=== PATIENT | male | born 1935 | race Caucasian/White ===

== ENCOUNTER 2016-05-25 21:41 | Inpatient (IN) | payer BC ==
--- NOTE | ~2016-05-25 | HP ---
History And Physical [id number] [place]. [address] NAME: GILBERTO DURAND : 31 STATUS : ADM IN [facility]#: [id number] AGE: 80 ADM/REG DATE : 05/26/16 MR#: [id number] REPORT SERV DATE: 05/26/16 DICTATED BY: BLAINE CHEN DATE: 05/26/16 REPORT STATUS : Draft TRANSCRIBED BY: MODL DATE: 05/26/16 DATE OF ADMISSION: 05/26/2016 CHIEF COMPLAINT: An 80-year-old male with chronic severe dysphagia, presenting with a vomiting episode and now respiratory failure and aspiration pneumonia. HISTORY OF PRESENTING ILLNESS: The patient's history was obtained through careful interview with the patient, , and son, coupled with review of [employer] [facility] [employer] medical records. The patient has chronic dysphagia and receives medicines and food only through his PEG tube and has generally been doing well, but over the last week or so, has had progressive weakness that is particularly worsened at night. He has nighttime agitation, nighttime shortness of breath. Sometimes, it seems that he suffers from orthopnea and possible paroxysmal nocturnal dyspnea. He mostly feels comfortable sitting up in a recliner. For last two nights, he has had shortness of breath issues, but then on the night of admission, he vomited and had a witnessed aspiration, gagging severely on as vomitus and became distressed with his breathing. He had fevers and chills earlier on the day of admission, but early on the day leading up to admission, he actually had home health care physical therapy working with him and was doing quite well. He has no pain complaints. No chest pain. No abdominal pain. No headache. No back pain. REVIEW OF SYSTEMS: Otherwise, a 14-point review of systems was obtained and was negative. PAST MEDICAL HISTORY: 1. Mild Alzheimer dementia. 2. Stroke. 3. Chronic dysphagia status post PEG tube placement. Under the care of Dr. Carr. 4. Recurrent aspiration pneumonia. 5. Coronary artery disease status post CABG, seen by Dr. Jimenez. 6. Atrial fibrillation, on Xarelto, seen by Dr. White. 7. Benign prostatic hypertrophy. 8. MRSA infection. 9. Cellulitis of the legs. 10.Depression. 11.Diabetes. 12.Hyperthyroidism as a young man with status post radiation and then developed hypothyroidism. 13.Vertigo. 14.Systolic congestive heart failure, ejection fraction of 40%. 15.Prostate cancer. History And Physical [address] [address] NAME: GILBERTO DURAND : 31 STATUS : ADM IN PAT#: [id number] AGE: 80 ADM/REG DATE : 05/26/16 MR#: [id number] REPORT SERV DATE: 05/26/16 DICTATED BY: BLAINE CHEN DATE: 05/26/16 REPORT STATUS : Draft TRANSCRIBED BY: JEMMA DATE: 05/26/16 16.Aortic stenosis with a valve area of 1.4 cm2. PAST SURGICAL HISTORY: 1. CABG in 2008. 2. PEG tube placement. 3. TURP. 4. Cholecystectomy. 5. Melanoma in 2010. 6. Left foot surgery. 7. Basal cell carcinoma of the foot removed. ALLERGIES: PENICILLIN, SHELLFISH, BENADRYL. CODE STATUS: The family initially signed a form tonight to be a do not intubate, no CPR, but they actually describe to me the need to possibly reconsider this? 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 His son is a GI physician in [place], [place] at [facility]. The patient needs assistance with all activities of daily living. The patient has assistance from his and certified personal trainer that comes by each day, has a hospital bed at home. FAMILY HISTORY: Father with heart disease. Mother of "old age." Son with melanoma. Strong family history of diabetes. CURRENT MEDICATIONS: Include albuterol inhaler, amiodarone 100 mg per PEG daily, eye drops, Coreg 6.25 mg per PEG twice a day, Antabuse, Aricept 15 mg through PEG, doxycycline 100 mg twice a day, Lasix 40 mg twice a day, Atrovent, levothyroxine 75 mcg daily, metformin 500 mg daily, multivitamin, potassium 20 mEq daily, Xarelto 20 mg at night, Exelon patch, Crestor 10 mg daily, Florastor 250 mg daily, Namenda twice a day, Effexor XR 150 mg daily at nighttime. PHYSICAL EXAMINATION: VITAL SIGNS: Temperature 97.4, pulse 99, blood pressure 149/54, respiratory rate 33, and O2 saturation 89% on 4 L nasal cannula. GENERAL: An ill-appearing male, poorly responsive, in distress from respiratory distress. HEENT: Pupils equal, round, and reactive to light. No conjunctival pallor. No scleral icterus. Nares are patent. Oropharynx is clear of obstruction. Moist mucous membranes. NECK: Trachea midline. No thyromegaly. LYMPH: No cervical lymphadenopathy. No supraclavicular lymphadenopathy. RESPIRATORY: The patient has crackles and rhonchi throughout examination, significant upper respiratory rhonchi are predominant. No wheezes at this time. No wet rales. A very labored respiratory effort heaving with his abdomen with each breath. CARDIOVASCULAR: Regular rate and rhythm. No murmurs, rubs, or gallops. No current extremity edema is appreciated at all. ABDOMEN: Completely soft, nontender, nondistended. Normal bowel sounds auscultated History And Physical [address] [address] NAME: GILBERTO DURAND : 31 STATUS : ADM IN [facility]#: [id number] AGE: 80 ADM/REG DATE : 05/26/16 MR#: [id number] REPORT SERV DATE: 05/26/16 DICTATED BY: BLAINE CHEN DATE: 05/26/16 REPORT STATUS : Draft TRANSCRIBED BY: JEMMA DATE: 05/26/16 throughout. No hepatosplenomegaly. DERMATOLOGICAL: Warm and dry. EXTREMITIES: No pallor. No cyanosis. PSYCHIATRIC: Completely unresponsive at this time, lethargic, difficult to arouse. LABORATORY DATA: White blood cell count 13.6, hemoglobin 12, hematocrit 39, platelets 342. Sodium 135, potassium 5.2, chloride 96, bicarbonate 32, BUN 28, creatinine 0.90, glucose 141, brain natriuretic peptide 175, troponin 0.04, albumin 2.8, INR 1.3. Liver enzymes within normal limits. ABG demonstrates pH 7.38, a PaCO2 of 53, a PaO2 of 71, and bicarbonate of 30. STUDIES: 1. CT scan of the abdomen shows bilateral lower lung infiltrates. 2. EKG by my own evaluation shows sinus rhythm, first-degree AV block, premature atrial complexes, inferior Q-waves. ASSESSMENT AND PLAN: 1. Hypercapnic and hypoxic respiratory failure. Place on a BiPAP in the IMCU, currently a do not intubate. 2. Aspiration pneumonia. Witnessed vomit and aspiration. Place on IV vancomycin because of MRSA and other broad IV antibiotics. Check blood cultures. I discussed the case with Dr. Moreno who works along side Dr. Estela Willis, floorworker distributor and he agrees with current management and there is a plan for the pulmonary group to follow up. 3. Sepsis, presumptive with white blood cell count of 13.6, pulse greater than 90, tachypnea. Check blood cultures. Place on IV antibiotics for now. 4. Chronic obstructive pulmonary disease, place on DuoNeb nebulizers. 5. Chronic systolic congestive heart failure. Ejection fraction 40%. Monitor volume status closely. The patient appears euvolemic at this time. We will continue Lasix per PEG. KPL/MODL Blaine Chen M.D. / [id number] CC: Cleveland Almanzar M.D. William Oellerich, M.D., Ph.D, F.A.C.C. B. Erik Willis Jr., M.D.
--- NOTE | ~2016-05-25 | OP ---
Record Of Operation [facility] [address] [place]. [address] NAME: GILBERTO DURAND : 31 STATUS : ADM IN [facility]#: [id number] AGE: 80 ADM/REG DATE : 05/26/16 MR#: [id number] REPORT SERV DATE: 05/30/16 DICTATED BY: TOÑO CHONG IV LEROY DATE: 05/30/16 REPORT STATUS : Draft TRANSCRIBED BY: MODL DATE: 05/30/16 DATE OF PROCEDURE: 05/30/2016 Laryngoscopic Intubation Note PREOPERATIVE DIAGNOSIS: Hypoxemic respiratory failure. POSTOPERATIVE DIAGNOSIS: Hypoxemic respiratory failure. PROCEDURE: Laryngoscopic intubation with ventilator setup. INDICATIONS: Failed extubation with hypoxemic respiratory failure and distress. CONTRAINDICATIONS: None. CONSENT: No consent was obtained as it is a lifesaving procedure. Before we extubated the patient earlier today, we discussed whether we should reintubate the patient if he should fail. The family felt that the patient would want re-intubation at that time. PREOPERATIVE LABORATORIES: Platelet count was 245,000. The patient is on Xarelto. DISPATCH MANAGER: Toño Chong M.D. METHOD: The patient was brought to the head of the bed. Tube feeds had been stopped. He was on a venturi mask with sats in the mid 80s. He was Ambu bag ventilated with sats improving into the mid 90s. Once equipment was made available, a curved laryngoscopic blade was used with poor visualization of vocal cords which were very deep. The glide scope was available at the bedside and was quickly used with a #4 blade to visualize, it was inserted the patient's posterior pharyngeal space. The vocal cords could be visualized with thick secretions removed with suction. An #8 endotracheal tube was advanced through the cords on first pass. Just at the time the tube went through the cords, the patient had pooled gastric contents in the posterior pharyngeal space which was removed with suction. The balloon was inflated via the endotracheal tube. There was appropriate color change with bilateral breath sounds noted. At this point, more pooled secretion came to the posterior pharyngeal space which were removed with suction. The patient was then placed in the 45 degree position, the tube was secured at 24 cm. X-ray was currently pending. Tracheal aspirate will be sent for Gram stain culture. The patient had received 20 mg of etomidate to provide relaxation prior to the procedure. The family was aware, the ventilator settings were CMV, tidal volume of 450 mL, rate of 12, FiO2 100%, PEEP of 5. It will be adjusted per blood gas. Chest x-ray will be obtained to document tube position. LUCAS/JEMMA Toño Chong Record Of [address] [address] NAME: GILBERTO DURAND : 31 STATUS : ADM IN [facility]#: [id number] AGE: 80 ADM/REG DATE : 05/26/16 MR#: [id number] REPORT SERV DATE: 05/30/16 DICTATED BY: TOÑO CHONG IV DATE: 05/30/16 REPORT STATUS : Draft TRANSCRIBED BY: JEMMA DATE: 05/30/16 Cleveland METZ / [id number] CC: Cleveland Waggoner M.D.
--- NOTE | ~2016-05-25 | IDS ---
Interim Discharge Summary [facility] [address] [place]. [address] NAME: GILBERTO DURAND : 31 STATUS : ADM IN [facility]#: [id number] AGE: 80 ADM/REG DATE : 05/26/16 MR#: [id number] REPORT SERV DATE: 06/02/16 DICTATED BY: TOÑO CHONG IV DATE: 06/01/16 REPORT STATUS : Draft TRANSCRIBED BY: MODL DATE: 06/01/16 ADMISSION DATE: 05/26/2016 DISCHARGE DATE: 05/26/2016 ADMITTING DIAGNOSES: 1. Acute hypoxemic respiratory failure. The patient still remains on mechanical ventilator after failed extubation. 2. Large volume aspiration. 3. Shock requiring vasopressor agents though off. 4. Atrial fibrillation/flutter with rapid ventricular response, on amiodarone. 5. Acute kidney injury, improved. 6. Dysphagia with PEG tube. 7. Moderate aortic stenosis on echocardiogram. 8. Partial right brachial vein thrombosis, on Xarelto. 9. Diabetes mellitus. 10.Hypothyroidism, on replacement therapy. 11.Dementia/encephalopathy. CONSULTANTS: 1. Palliative Care was consulted on 06/05/2016 and continued to follow the patient. 2. [facility] was consulted on 05/31/2016 and continued to follow the patient with atrial flutter with rapid ventricular response. PROCEDURES: The patient underwent PICC line placement on 05/26/2016. He was intubated in the emergency room. He underwent re-intubation on 05/30/2016 after a failed extubation and the patient had an ultrasound of the upper extremities demonstrating a partial brachial vein clot in the area of the PICC, although he is on Xarelto. HOSPITAL COURSE: The patient was initially admitted by the Hospitalist Service though was transferred to the ICU Service after requiring intubation for large volume aspiration. He remained on mechanical ventilator, though actually had adequate weaning trials on 05/30/2016. He underwent an extubation however only last hours before he was unable to clear secretions and had increasing respiratory distress. He is reintubated without event, though at the time of the intubation it was obvious that even though this tube feeds had been off he had two regurgitations into his posterior pharyngeal space. He was empirically treated with antibiotics which I would empirically treat for seven to eight-day course with a marked decrease in his white blood cell count from 32.6 to 8.7, and procalcitonin level from 17.16 to 1.1, however with continually negative blood cultures, urine cultures, and tracheal aspirate cultures. He has been on cefepime, Flagyl, and vancomycin. The patient did develop atrial flutter with rapid ventricular response on therapy for which Cardiology was consulted, and he was placed on an amiodarone drip. He had conversion. He was transitioned to amiodarone and Lopressor by [facility]. He initially required Levophed; however, that was resolved in less than 36 hours. He received tube feeds through his PEG tube. He remained on thyroid medications and insulin sliding scale for his diabetes mellitus. The patient had initially been a DNR/DNI; however, that was reversed in the emergency room. On further discussions after failure of the extubation, the patient was Interim Discharge Summary [address] [place]. [address] NAME: GILBERTO DURAND : 31 STATUS : ADM IN [facility]#: [id number] AGE: 80 ADM/REG DATE : 05/26/16 MR#: [id number] REPORT SERV DATE: 06/02/16 DICTATED BY: TOÑO CHONG IV DATE: 06/01/16 REPORT STATUS : Draft TRANSCRIBED BY: JEMMA DATE: 06/01/16 again made a limited code. The family is in agreement that he would not want a tracheostomy placed. The plan is to have family come in over the weekend and when he seems to be tolerating a wean again extubate without plan for re-intubation. LUCAS/JEMMA Toño Chong IV, M.D. / [id number] CC: Cleveland Waggoner M.D.
--- NOTE | ~2016-05-25 | IDS ---
Interim Discharge Summary [facility] [address] [place]. [address] NAME: GILBERTO PIERRE : 31 STATUS : ADM IN PAT#: [id number] AGE: 80 ADM/REG DATE : 05/26/16 MR#: [id number] REPORT SERV DATE: 06/08/16 DICTATED BY: MASOOD DOWNS DATE: 06/08/16 REPORT STATUS : Draft TRANSCRIBED BY: MODL DATE: 06/08/16 ADMISSION DATE: 05/26/2016 DISCHARGE DATE: This discharge summary will cover from 06/03/2016 until 06/08/2016. For additional details of hospitalization prior to that, please see the admitting history and physical from Dr. Tam Trujillo from 05/26/2016 and the detailed interim discharge summary from Dr. Elroy Chong on 06/02/2016. 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 He had a daily weaning trial off the sedation and unfortunately continued to fail due to rapid shallow breathing and hypoxemia. He was seen multiple times by Dr. Edward Adams from Palliative Care who was also following along as well as from the key account director from [facility] who assisted with management of his atrial fibrillation. Dr. Jimenez and I discussed the case and he ultimately signed off on 06/05/2016 with final recommendations to continue amiodarone for symptomatic treatment of atrial fibrillation. We initiated a fairly aggressive diuresis late in the week and he had a good urine output and began to tolerate CPAP trials on less pressure support although he still develops rapid shallow breathing on 8 of pressure support and 5 of PEEP and 30% FiO2. I had multiple meetings with the patient's and once with his nephew and [id number], mid-week, I clarified that he was making incremental improvement; however, his condition from a pulmonary standpoint remains extremely tenuous and that he still may not be successfully weaned from the ventilator. Dr. Adams echoed this information to them during his meetings as well and he also met with the patient's son a couple of times most recently on afternoon. The consensus after all of those discussions were that the patient was approaching day 14 of mechanical ventilation which would be at the end of this week and that he had been clear that he would not be interested in tracheostomy placement and his was in agreement with that sentiment. Dr. Adams and I made a plan with his that he would be extubated on Saturday once his sons are available at the bedside to support their mother and that we would do our best to support his breathing using supplemental oxygen and perhaps noninvasive forms of ventilation but that we would not proceed with re-intubation should he develop additional respiratory distress and rather would focus on the patient's comfort and dignity with the understanding that he was approaching the end of his life. This plan has been discussed at length with Dr. Marga Roberson who will be covering over the weekend for the critical care medicine service. ACTIVE PROBLEM LIST: 1. Acute hypoxemic respiratory failure secondary to large volume aspiration event on 05/26/2016 superimposed on to chronic aspiration which has likely led to some degree of basilar interstitial lung disease based on his chest x-ray and history of aspiration pneumonia, has been treated with broad-spectrum antibiotics and he remains on Maxipime. Vancomycin was stopped yesterday. 2. Septic shock secondary to aspiration pneumonia. He has been weaned off Levophed with success and we have not needed to restart. 3. Atrial fibrillation with RVR initially, now with variable rate control. He is on amiodarone per Dr. Jimenez's team and rivaroxaban for anticoagulation. 4. Type 2 diabetes mellitus. He is on insulin with a goal blood glucose of 140 to 180 Interim Discharge Summary [address] [address] NAME: GILBERTO PIERRE : 31 STATUS : ADM IN [facility]#: [id number] AGE: 80 ADM/REG DATE : 05/26/16 MR#: [id number] REPORT SERV DATE: 06/08/16 DICTATED BY: MASOOD DOWNS DATE: 06/08/16 REPORT STATUS : Draft TRANSCRIBED BY: MODL DATE: 06/08/16 while he is critically ill. 5. Chronic dysphagia, status post PEG tube. 6. Hypothyroidism on levothyroxine daily. 7. Hyponatremia in the setting of prolonged critical illness including diuretic and Effexor use. We did put him on some D5W and increased his free water with improvement of his sodium from 150 on 06/06/2016 to 141 on 06/08/2016 and his mental status has improved somewhat with that adjustment. Prophylaxis, he is on rivaroxaban as well as Pepcid for stress ulcer prophylaxis. He is a DNR with no plans for escalation of care should he deteriorate per Dr. Adams and my previous discussions and the DNR form was completed by Dr. Arlette tristan of last week with the family. He has morning labs ordered for tomorrow and will remain in the CCU. ALOK/JEMMA Masood Downs MD / [id number] CC: Cleveland Waggoner M.D.
--- NOTE | ~2016-05-25 | DS ---
Discharge Summary [facility] [address] [facility] [place]. [address] NAME: MADHU DURAND : 31 STATUS : DIS IN PAT#: [id number] AGE: 80 ADM/REG DATE : 05/26/16 MR#: [id number] REPORT SERV DATE: 06/18/16 DICTATED BY: REYNA NOYOLA DATE: 06/15/16 REPORT STATUS : Draft TRANSCRIBED BY: MODL DATE: 06/15/16 ADMISSION DATE: 05/26/2016 DISCHARGE DATE: 06/15/2016 CONSULTANTS: 1. Dr. Elroy Chong. 2. Dr. Britta Vidal, Critical Care. 3. Dr. Sebas Hdz, Cardiology. 4. Edward Adams M.D., Palliative Care. DISCHARGE DIAGNOSES: 1. Acute hypoxic hypercapnic respiratory failure, not requiring ventilator support. 2. Recurrent aspiration pneumonia. 3. Septic shock, requiring vasopressor support. 4. Atrial fibrillation and atrial flutter with rapid ventricular response. 5. Severe dysphagia, on chronic PEG tube feedings. 6. Suspected Parkinson disease. 7. Acute deep vein thrombosis, right brachial vein. 8. History of multiple previous strokes. 9. History of coronary artery disease with bypass in 2008. 10.Moderate aortic stenosis but not a candidate for transcatheter or surgical aortic valve replacement. 11.Dementia (Alzheimer's plus or minus vascular dementia). 12.Previous history of prostate cancer. 13.Hypernatremia due to free water depletion. 14.Diabetes mellitus type 2 with A1c 5.6%. 15.History of previous leg cellulitis. 16.History of benign prostatic hypertrophy. 17.History of previous hyperthyroidism, treated with radioactive iodine and subsequent hypothyroidism. 18.History of major depressive disorder. 19.History of alcohol excess. HISTORY: This patient was admitted through the emergency room because of acute respiratory distress, had O2 saturation of 89% on 4 L, had a respiratory rate of 33 on assessment in the emergency room. White count of 13.6, potassium 5.2. ABG, pH 7.38, pCO2 53, pO2 71, bicarbonate 30.1, this was on 32% oxygen, however, the patient deteriorated, had to be intubated, and moved to the intensive care where he had shock and pneumonia. At one point, they took him off the ventilator, but he required re-intubation only a few hours later. He could not handle his secretions and had respiratory distress. White count was very elevated up to 32.6 but improved dramatically to the normal range. He was treated with broad- spectrum antibiotics cefepime, Flagyl, and vancomycin. While in the intensive care, he had atrial flutter with rapid ventricular response. Retail Banking Manager, Dr. Hdz saw the patient, felt that based on his echocardiogram, he had moderate aortic stenosis, but he was not a surgical candidate for surgical aortic valve Discharge Summary [address] [place]. [address] NAME: MADHU DURAND : 33 STATUS : DIS IN PAT#: [id number] AGE: 80 ADM/REG DATE : 05/26/16 MR#: [id number] REPORT SERV DATE: 06/18/16 DICTATED BY: REYNA NOYOLA DATE: 06/15/16 REPORT STATUS : Draft TRANSCRIBED BY: JEMMA DATE: 06/15/16 replacement nor was he felt to be a candidate for transcatheter aortic valve replacement. Echo on 05/07/2016, left atrium 5.3 cm, left ventricular ejection fraction 50%, moderate left ventricular hypertrophy, moderate aortic valvular stenosis with aortic valve area of [address] Hdz talked with the patient's family. They want the patient to be DNR, and they do not want to have a transesophageal echo or cardioversion in that route, so amiodarone was used as his primary therapy. The patient was in the intensive care on the ventilator for more than a week. Family did not feel he would want to have a tracheostomy. Angie of Palliative Care saw the patient in consultation, talked with the family and they made it quite clear that they did not want him to be a ventilator patient, and they did not want him to be reintubated, and were more interested in lower level of care. They did not want him reintubated if he had further respiratory decline. Out on the medical floor, he remained mostly stable and had low-grade fever. It is likely that this is related to his difficulty handling his secretions. He is still completely n.p.o., but he has saliva as well as any regurgitated material that has to be handled by him, and he is at high risk for recurrent aspiration and recurrent pneumonia. I have talked with the and told her that not only is he had high risk for recurrent pneumonia, but his overall physical strength has continued to decline with multiple hospitalizations and lower and lower level of interactions with less and less conversation. I told her it is very suspicious to me that he may have not only baseline dementia from Alzheimer's or vascular dementia, but he may have indeed Parkinson's as he has a prominent tremor at rest that is not noticed as much with activity. He has slowness of movement. He has rigidity in his arms with cogwheel rigidity, and he has a masklike face, therefore we have initiated Sinemet trial at low dose. If after a week or 2 at most, there is no significant improvement in his tremor and rigidity, then Sinemet should be discontinued. The patient did have a deep vein thrombosis found to be in his right brachial vein associated with the PICC line. PICC line was kept in place with him on Xarelto until it was no longer needed, then the PICC line was removed. He is still on Xarelto at this time because of that deep vein thrombosis as well as his paroxysmal atrial fibrillation, atrial flutter, and previous strokes. DISCHARGE MEDICATIONS: Will include amiodarone 100 mg daily, Sinemet 25/100 half tablet 3 times a day, Restasis ophthalmic one drop both eyes twice a day, NovoLog correctional a.c. and at bedtime level 2, Synthroid 75 mcg daily, Namenda 5 mg twice a day, metoprolol 25 mg twice a day, KCl 20 mEq twice a day, Exelon 9.5 mg patch daily, Xarelto 20 mg with lunch, Florastor capsule daily, Effexor 75 mg twice a day, Proventil nebulized q.4 hours, Dulera 200/5, 5 puff twice a day, Levemir 5 units twice a day, Tylenol 650 q.4 hours p.r.n., Refresh Tears both eyes p.r.n., Dulcolax suppository p.r.n., glucose intravenously p.r.n., glucose tablets through the PEG p.r.n., Zenpep to help unclog his PEG if needed, Zofran 4 mg ODT q.4 hours p.r.n. nausea, Crestor 10 mg through the PEG daily. Tube feeding is Glucerna 1.2 at 65 mL/h with water flush of 150 mL through the PEG every four hours. It had been only 30 mL every four hours, but I have increased it because his Discharge Summary [address] [place]. [address] NAME: MADHU DURAND : 33 STATUS : DIS IN PAT#: [id number] AGE: 80 ADM/REG DATE : 05/26/16 MR#: [id number] REPORT SERV DATE: 06/18/16 DICTATED BY: REYNA NOYOLA DATE: 06/15/16 REPORT STATUS : Draft TRANSCRIBED BY: MODL DATE: 06/15/16 sodium has gone from 145-146 and now 153, and this water increase should correct that. I spent 46 minutes today with the patient and his and with discharge planning. RSG/JEMMA Reyna Noyola M.D. / [id number] CC: Cleveland Lopes M.D. Madhu Jimenez M.D., Ph.D, F.A.C.C. Tyson Carr M.D. Former[facility]
--- NOTE | ~2016-05-25 | CN ---
Consultation Report [facility] [address] [place]. [address] NAME: MADHU PIERRE : 33 STATUS : ADM IN PAT#: [id number] AGE: 80 ADM/REG DATE : 05/26/16 MR#: [id number] REPORT SERV DATE: 05/31/16 DICTATED BY: SEBAS REILLY DATE: 05/31/16 REPORT STATUS : Draft TRANSCRIBED BY: MODL DATE: 05/31/16 DATE OF CONSULTATION: 05/31/2016 REASON FOR CONSULTATION: Atrial flutter with RVR. PRIMARY BLEACH ANALYST: Madhu Jimenez M.D., Ph.D, F.A.C.C. HISTORY OF PRESENT ILLNESS: Mr. Pierre is an 80-year-old gentleman with a history of paroxysmal atrial fibrillation, on amiodarone/Coreg/Xarelto, CAD status post CABG, hypertension, hyperlipidemia, severe low-gradient aortic stenosis, deems not a candidate for SAVR/TAVR, and mild ischemic cardiomyopathy, who was admitted on the 26 of May to [facility] for hypoxic respiratory failure in the setting of aspiration pneumonia. He has had a complicated hospital stay, requiring intubation with reversal of DNI status. He was extubated yesterday on 05/30 with progressive tachypnea over the course of a couple hours of requiring re-intubation. Overnight, he converted from atrial fibrillation with a controlled rate to atrial flutter with a ventricular rate in the 130s, prompting consultation today. Presently, he remains ventilator dependent and is continuing antibiotics for aspiration pneumonia. He is on a low dose of enteric amiodarone via PEG tube. I spoke with his , as well as his son, who is a hris manager in [place], extensively over the phone. His current goals of care include being pm-prf-[id number]. He is no longer DNI per family wishes over the past several days given his clinical trajectory. In speaking with his son and , they desire at this time to keep him DNR, understanding that this precludes specific therapies for atrial flutter, in particular transesophageal echocardiogram with cardioversion. PAST MEDICAL HISTORY: As above. SOCIAL HISTORY: The patient lives at home with his and is heavily dependent on her to complete day-to-day activities. He has not been recently drinking alcohol, smoking, or doing drugs. FAMILY HISTORY: Noncontributory for premature cardiovascular disease. HOME MEDICATIONS: 1. Albuterol. 2. Amiodarone 100 mg per PEG every morning. 3. Coreg 6.25 b.i.d. 4. Antabuse. 5. Restasis. 6. Aricept. 7. Monodox. 8. Lasix 40 mg b.i.d. 9. Atrovent. 10.Synthroid. 11.Glucophage. Consultation Report [address] [address] NAME: MADHU PIERRE : 33 STATUS : ADM IN PAT#: [id number] AGE: 80 ADM/REG DATE : 05/26/16 MR#: [id number] REPORT SERV DATE: 05/31/16 DICTATED BY: SEBAS REILLY DATE: 05/31/16 REPORT STATUS : Draft TRANSCRIBED BY: JEMMA DATE: 05/31/16 12.Multivitamin. 13.Potassium. 14.Xarelto 20 mg p.o. at bedtime. 15.Exelon. 16.Crestor 10 mg daily. 17.Florastor. 18.Namenda. 19.Effexor. ALLERGIES: PENICILLIN, SHELLFISH, AND DIPHENHYDRAMINE. PHYSICAL EXAMINATION: VITAL SIGNS: Blood pressure 101/72, pulse 132 to 140 beats per minute, temperature 98.9 (T- max 101.7). GENERAL: Somnolent, no acute distress. Cachectic. HEAD AND NECK: Endotracheal tube noted. Dry mucous membranes. Normocephalic, atraumatic. RESPIRATORY: Ventilator-dependent, transmitted breath sounds bilaterally. CARDIAC: Regular, tachycardic. Normal S1, S2. Systolic murmur at the sternal borders. ABDOMEN: Soft, nontender, nondistended. No rebound or guarding. EXTREMITIES: Warm and trace edema bilaterally. SKIN: Grossly intact. No obvious active rash. PERTINENT TEST FINDINGS: Potassium 3.9, creatinine 0.57, GFR 111. Magnesium 2.1. White blood cell count 9.7, hemoglobin 8.6, troponin 0.04 and 0.06 from the 17th and 18th of this month. BNP 182. TSH 1.24. EKG with atrial flutter with 2-1 AV conduction, occasional PVCs, inferior SD, ventricular rate 131 beats per minute. Telemetry demonstrates increase in rate around 2 a.m. this morning into atrial flutter. IMPRESSION AND PLAN: Mr. Pierre is an 80-year-old man with a history of paroxysmal atrial fibrillation, on amiodarone and Xarelto, coronary artery disease status post coronary artery bypass graft, severe low-gradient aortic stenosis, not a candidate for surgical aortic valve replacement/transcatheter aortic valve replacement, who presented with hypoxic respiratory failure, on 05/26 in the setting of aspiration, ventilator dependent, of [id number] status, now in atrial flutter with rapid ventricular response. Having spoken at length with the patient's son, who is a hris manager in [place], as well as the patient's , it is clear that they would prefer not to do a transesophageal echocardiographic cardioversion at this time as it would directly conflict with his sg-iku-acxnmwixnyu status. Instead, they would like to trial IV amiodarone and give him some time to resolve his respiratory process before exploring or considering even an elective cardioversion for flutter. I think that this is reasonable given his overall goals of care, as well as the fact that he is a poor substrate, demonstrating clear failure to thrive (albumin 2.0). Accordingly, I have the following recommendations for problem below: Consultation Report [place] [id number] [facility] [place]. [address] NAME: MADHU PIERRE : 33 STATUS : ADM IN [facility]#: [id number] AGE: 80 ADM/REG DATE : 05/26/16 MR#: [id number] REPORT SERV DATE: 05/31/16 DICTATED BY: SEBAS REILLY DATE: 05/31/16 REPORT STATUS : Draft TRANSCRIBED BY: MODL DATE: 05/31/16 1. Atrial flutter with rapid ventricular response-he is already on Xarelto for atrial fibrillation, continue this as written. Start IV amiodarone with a bolus if tolerated from a blood pressure standpoint. I will tentatively make him n.p.o. after midnight for possible cardioversion tomorrow, as the family has indicated that they would potentially be interested in this should he still be in atrial flutter tomorrow despite trial of amiodarone IV. They understand that in order to do so, they will need to reverse his hg-nku-ctswwhpxjii status. 2. Hypoxic respiratory failure-remains ventilator dependent. Continue antibiotics as you are doing, and further management per the punch press setter. 3. Coronary artery disease status post coronary artery bypass graft-I see no of clear findings to suggest active ischemia at this time. I believe #1 is entirely due to his respiratory decompensation and aspiration pneumonia. Otherwise, stable. Continue his statin as written. 4. Goals of care-Palliative Care is following. It is very likely that the family may decide to go down an entirely palliative care plan pending his neurologic status, as well as clinical trajectory in the forthcoming days. At this point in time, he remains a nv-hyn-iftvazpcofn. VR/MODL Sebas Reilly MD / [id number] CC: Cleveland Waggoner M.D.
--- NOTE | ~2016-05-25 | HP ---
History And Physical [place] [address] [address] NAME: GILBERTO DURAND : 33 STATUS : REG ER PAT#: [id number] AGE: 80 ADM/REG DATE : 05/25/16 MR#: [id number] REPORT SERV DATE: 05/26/16 DICTATED BY: BLAINE CHEN DATE: 05/26/16 REPORT STATUS : Draft TRANSCRIBED BY: MODL DATE: 05/26/16 DATE OF ADMISSION: 05/25/2016 ADDENDUM: LESVIA/JEMMA Blaine Chen M.D. / [id number] CC: Cleveland Canas M.D., Ph.D, F.A.C.C.
[~2016-05-25 21:41] MED LIST: *UNABLE1; ALTACE10 MG PO; AMIODARONE PO; ANTA250 PO; ANTABUSE250 MG PEG; ARICEPT10 PEG; ARICEPT10 PO; ARICEPT5 PO; ASAB PO; ASABAYER PO; ASTELIN NAS; ATRONASAL6 NAS; BENICAR5 PO; CORDARONE PO; COREG6 PEG; COREG6 PO; CRESTOR10 PEG; CRESTOR10 PO; EFFEXOR XR150 MG PO; EXELON9.5T PO; EXELON9.5T TOP; FIBERCON PO; FLAG500TAB PO; FLOMAX4 PO; FLORASTOR250 MG PO; GGACUDL PO; GGDM5ML PO; GLUCPH PEG; HYDROMET1 ML PO; KCL20UDL PO; KDUR20 PO; KEPPRA500 PO; KLOR-CON M2020 MEQ PEG; KLOR-CON M2020 MEQ PO; L20 PO; L40 PEG; L40 PO; LEVAQUIN5T PEG; LEVOTHYROXIN75 MCG PO; LEXAPRO10 PO; LORTAB 5 PO; MCZ25 PO; MEGACEUDL PO; METRONIDAZOLE PO; MICRO-K10 MEQ PO; MUCINEX600 MG PO; MULTIPLE VIT PO; MULTIVIT/MIN PO; NAMENDA10 MG PO; NAMENXR28 PO; NATURL FIBER68 % PO; NEXIUM20 M1 PO; NORCO1 TA1 PO; PACERONE100 MG PEG; PACERONE100 MG PO; PHILLIP COLON HEALTH PO; PRILOSEC OTC20 MG PEG; PRIN2.5 PO; PRISTIQ100 MG PO; PROBIOTIC OTC PO; PROTONIX PO; PROVENTSOL; PROVENTSOL INH; PYR200 PO; RESTASIS OPH; ROSUVASTATIN PO; RX NASAL SPRAY NAS; SODIUM CHLORIDE 3% INH; SODIUM CHLORIDE INH; SYN075 PEG; SYN075 PO; SYN1 PO; TESS PO; XARELTO20 MG PO; ZITHROMAX500 MG PO; ZYP5 PO; ZYPREXA10 MG PEG; ZYPREXA10 MG PO; ZYPREXA15 MG PO; [UNRECOGNIZED DRUG - OTHER] PO; [UNRECOGNIZED DRUG - REMARK]
[2016-05-25 22:50] LABS: BE (BASE EXCESS) 3.9 MEQ/L (0 +/- 2.5); CARBOXYHEMOGLOBIN 1.3 % (0-3); DEVICE NC; HCO3 (ACTUAL BICARBONATE) 30.1 MEQ/L (23-27); HEMOBLOGIN CONTENT 12.7 G/DL (14-18); INSTRUMENT SERIAL # 8087; METHEMOGLOBIN 0.3 % (0-3); O2 CONTENT 16.4 VOL% (18-24); OPERATOR ID 17589; PCO2 (CO2 TENSION) 53 MMHG (35-45); PO2 (O2 TENSION) 71 MMHG (79-93); SAMPLE Arterial; pH 7.38 (7.37-7.43)
[2016-05-25 23:13] LABS: BASOPHILS 0.3 %; BASOPHILS ABSOLUTE 0.04 10/3/uL (0.0-0.16); EOSINOPHILS 0.3 %; EOSINOPHILS ABSOLUTE 0.04 10/3/uL (0.0-0.53); HEMATOCRIT 38.8 % (40.0-51.0); HEMOGLOBIN 12.5 g/dL (13.6-17.8); IMMATURE GRANULOCYTES 1.3 %; LYMPHOCYTES 5.1 %; MEAN CORPUS HGB CONC 32.2 g/dL (32.0-36.0); MEAN CORPUSCULAR HEMOGLOB 30.9 pg (26.0-34.0); MEAN PLATELET VOLUME 9.9 fL (9.2-13.0); MONOCYTES 4.2 %; MONOCYTES ABSOLUTE 0.57 10/3/uL (0.21-1.20); NEUTROPHILS 88.8 %; NEUTROPHILS ABSOLUTE 12.07 10/3/uL (2.02-8.40); PLATELET COUNT 342 10/3/uL (150-400); RBC DISTRIBUTION WIDTH 15.6 % (12.0-16.0); RED CELL COUNT 4.04 10/6/uL (4.7-6.1)
[2016-05-25 23:19] LABS: ER CBC TAT 0 Hrs 10 Mins; IMMATURE GRANULOCYTES ABSOLUTE 0.18 10/3/uL (0.0-0.11); MANUAL DIFF NO %; WHITE BLOOD CELLS 13.6 10/3/uL (4.5-10.5)
[2016-05-25 23:23] LABS: INTERNATIONAL NORMAL RATI 1.3 UNITS (-)
[2016-05-25 23:24] LABS: PARTIAL THROMBO TIME 33.4 SEC (22.5-37.2)
[2016-05-25 23:26] LABS: PROTIME (NOT ORD) 16.2 SEC (12.0-14.5)
[2016-05-25] MEDS ORDERED: MONODOX100 MG PEG (23:29)
[2016-05-25] MEDS ORDERED: LEVOTHYROXIN75 MCG PEG (23:30)
[2016-05-25] MEDS ORDERED: MULTIVIT/MIN PEG (23:31)
[2016-05-25] MEDS ORDERED: EXELON9.5T TOP (23:31)
[2016-05-25] MEDS ORDERED: ANTABUSE250 MG PEG (23:31)
[2016-05-25] MEDS ORDERED: L40 PEG (23:32)
[2016-05-25] MEDS ORDERED: PACERONE100 MG PEG (23:32)
[2016-05-25] MEDS ORDERED: KLOR-CON M2020 MEQ PEG (23:33)
[2016-05-25] MEDS ORDERED: NAMENDA PEG (23:34)
[2016-05-25] MEDS ORDERED: FLORASTOR250 MG PEG (23:34)
[2016-05-25] MEDS ORDERED: GLUCPH PEG (23:35)
[2016-05-25] MEDS ORDERED: COREG6 PEG (23:36)
[2016-05-25] MEDS ORDERED: RESTASIS OPH (23:36)
[2016-05-25] MEDS ORDERED: ALBUTEROL0.083 % INH (23:37)
[2016-05-25] MEDS ORDERED: EFFEXOR XR150 MG PO (23:37)
[2016-05-25 23:39] LABS: A/G RATIO 0.7 (0.7-1.9); ALBUMIN 2.8 G/DL (3.5-5.0); ALKALINE PHOSPHATASE 94 U/L (45-117); BUN (BLOOD UREA NITROGEN) 28 MG/DL (6-23); CALCIUM, SERUM 8.6 MG/DL (8.5-10.4); CHLORIDE, SERUM 96 MMOL/L (96-112); CO2 (CARBON DIOXIDE) 32 MMOL/L (24-34); GFR AFRICAN AMERICAN 92 ML/MIN (>=60); GFR NON AFRICAN AMERICAN 79 ML/MIN (>=60); GLOBULIN 4.1 G/DL (2.5-4.1); POTASSIUM, SERUM 5.2 MMOL/L (3.5-5.3); SGOT(AST) 21 U/L (5-40); SGPT(ALT) 30 U/L (5-65); SODIUM, SERUM 135 MMOL/L (135-148); TOTAL BILIRUBIN 0.5 MG/DL (0-1.2); TOTAL PROTEIN 6.9 G/DL (6.0-8.5); TROPONIN I 0.04 NG/ML (<0.05)
[2016-05-25] MEDS ORDERED: ARICEPT10 PEG (23:39)
[2016-05-25] MEDS ORDERED: XARELTO20 MG PO (23:39)
[2016-05-25] MEDS ORDERED: CRESTOR10 PEG (23:40)
[2016-05-25] MEDS ORDERED: ATROVENTUD INH (23:41)
[2016-05-25 23:42] LABS: BAND NEUTROPHILS 2 %; ER DIFF TAT 0 Hrs 33 Mins; IMMATURE GRANS ABSOLUTE (CALC) 0.27 10/3/uL (0.0-0.11); LYMPHOCYTES 9 %; LYMPHOCYTES ABSOLUTE (CALC) 1.22 10/3/uL (0.67-4.30); METAMYELOCYTES 2 %; MONOCYTES 6 %; MONOCYTES ABSOLUTE (CALC) 0.82 10/3/uL (0.21-1.20); NEUTROPHILS ABSOLUTE (CALC) 11.29 10/3/uL (2.02-8.40); SEGMENTED NEUTROPHIL (0) 81 %; TOTAL NUCLEATED CELLS 100
[2016-05-25] MEDS ORDERED: REFRESH OPH (23:42)
[2016-05-25 23:43] LABS: OVALOCYTES 1+ (3-10/OIF) (0-2/OIF)
[2016-05-25] MEDS ORDERED: [UNRECOGNIZED DRUG - OTHER] TOP (23:43)
[2016-05-25 23:48] LABS: GLUCOSE, SERUM 141 MG/DL (60-99)
[2016-05-26 05:06] LABS: BASOPHILS 0.1 %; BASOPHILS ABSOLUTE 0.02 10/3/uL (0.0-0.16); EOSINOPHILS 0 %; ER CBC TAT 0 Hrs 07 Mins; HEMATOCRIT 37.8 % (40.0-51.0); HEMOGLOBIN 12.3 g/dL (13.6-17.8); LYMPHOCYTES 3.8 %; LYMPHOCYTES ABSOLUTE 0.66 10/3/uL (0.67-4.30); MEAN CORPUS HGB CONC 32.5 g/dL (32.0-36.0); MEAN CORPUSCULAR HEMOGLOB 30.4 pg (26.0-34.0); MEAN CORPUSCULAR VOLUME 93.3 fL (80-100); MEAN PLATELET VOLUME 10.1 fL (9.2-13.0); MONOCYTES 2.8 %; MONOCYTES ABSOLUTE 0.49 10/3/uL (0.21-1.20); NEUTROPHILS 92.3 %; NEUTROPHILS ABSOLUTE 16.05 10/3/uL (2.02-8.40); PLATELET COUNT 362 10/3/uL (150-400); RBC DISTRIBUTION WIDTH 15.7 % (12.0-16.0); RED CELL COUNT 4.05 10/6/uL (4.7-6.1); WHITE BLOOD CELLS 17.4 10/3/uL (4.5-10.5)
[2016-05-26 05:08] LABS: IMMATURE GRANULOCYTES ABSOLUTE 0.18 10/3/uL (0.0-0.11); MANUAL DIFF NO %
[2016-05-26 05:34] LABS: A/G RATIO 0.8 (0.7-1.9); ALBUMIN 2.8 G/DL (3.5-5.0); ALKALINE PHOSPHATASE 84 U/L (45-117); BUN (BLOOD UREA NITROGEN) 28 MG/DL (6-23); CALCIUM, SERUM 8.5 MG/DL (8.5-10.4); CHLORIDE, SERUM 99 MMOL/L (96-112); CREATININE 1.14 MG/DL (0.70-1.30); GFR AFRICAN AMERICAN 69 ML/MIN (>=60); GFR NON AFRICAN AMERICAN 60 ML/MIN (>=60); GLOBULIN 3.6 G/DL (2.5-4.1); GLUCOSE, SERUM 131 MG/DL (60-99); POTASSIUM, SERUM 4.9 MMOL/L (3.5-5.3); SGOT(AST) 20 U/L (5-40); SGPT(ALT) 27 U/L (5-65); SODIUM, SERUM 138 MMOL/L (135-148); TOTAL PROTEIN 6.4 G/DL (6.0-8.5)
[2016-05-26 05:38] LABS: CO2 (CARBON DIOXIDE) 27 MMOL/L (24-34); TOTAL BILIRUBIN 1.7 MG/DL (0-1.2)
[2016-05-26 05:39] LABS: TROPONIN I 0.06 NG/ML (<0.05)
[2016-05-26 05:54] LABS: PROCALCITONIN 16.96 ng/mL (<0.5)
[2016-05-26 06:08] LABS: BAND NEUTROPHILS 7 %; IMMATURE GRANS ABSOLUTE (CALC) 0.17 10/3/uL (0.0-0.11); LYMPHOCYTES 1 %; LYMPHOCYTES ABSOLUTE (CALC) 0.17 10/3/uL (0.67-4.30); METAMYELOCYTES 1 %; MONOCYTES 7 %; MONOCYTES ABSOLUTE (CALC) 1.22 10/3/uL (0.21-1.20); NEUTROPHILS ABSOLUTE (CALC) 15.83 10/3/uL (2.02-8.40); OVALOCYTES 1+ (3-10/OIF) (0-2/OIF); SEGMENTED NEUTROPHIL (0) 84 %; TOTAL NUCLEATED CELLS 100
[2016-05-26 06:09] LABS: POIKILOCYTOSIS 1+ (5-10/OIF) (0-5/OIF); TEARDROP SHAPED RBCS FEW (3-10/OIF)
[2016-05-26 09:34] LABS: ALLENS TEST Pos; BE (BASE EXCESS) 0.4 MEQ/L (0 +/- 2.5); CARBOXYHEMOGLOBIN 0.1 % (0-3); HCO3 (ACTUAL BICARBONATE) 25.6 MEQ/L (23-27); HEMOBLOGIN CONTENT 12.8 G/DL (14-18); INSTRUMENT SERIAL # 35151; METHEMOGLOBIN 0.6 % (0-3); MODE CMV; O2 CONTENT 17.5 VOL% (18-24); OPERATOR ID 35188; PCO2 (CO2 TENSION) 43 MMHG (35-45); PO2 (O2 TENSION) 103 MMHG (79-93); SAMPLE Arterial; TIDAL VOLUME 550 ML; pH 7.39 (7.37-7.43)
[2016-05-27 03:38] LABS: ALLENS TEST Pos; BE (BASE EXCESS) 1.9 MEQ/L (0 +/- 2.5); CARBOXYHEMOGLOBIN 0.3 % (0-3); HCO3 (ACTUAL BICARBONATE) 26.2 MEQ/L (23-27); HEMOBLOGIN CONTENT 11.5 G/DL (14-18); INSTRUMENT SERIAL # 35151; METHEMOGLOBIN 0.5 % (0-3); MODE CMV; O2 CONTENT 15.5 VOL% (18-24); OPERATOR ID 17370; PCO2 (CO2 TENSION) 40 MMHG (35-45); PO2 (O2 TENSION) 84 MMHG (79-93); SAMPLE Arterial; TIDAL VOLUME 550 ML; pH 7.44 (7.37-7.43)
[2016-05-27 03:54] LABS: HEMATOCRIT 32.3 % (40.0-51.0); HEMOGLOBIN 10.6 g/dL (13.6-17.8); MEAN CORPUS HGB CONC 32.8 g/dL (32.0-36.0); MEAN CORPUSCULAR VOLUME 94.4 fL (80-100); MEAN PLATELET VOLUME 10.1 fL (9.2-13.0); PLATELET COUNT 291 10/3/uL (150-400); RBC DISTRIBUTION WIDTH 15.9 % (12.0-16.0); RED CELL COUNT 3.42 10/6/uL (4.7-6.1); WHITE BLOOD CELLS 32.6 10/3/uL (4.5-10.5)
[2016-05-27 03:55] LABS: MANUAL DIFF YES %
[2016-05-27 04:03] LABS: CALCIUM, SERUM 8.5 MG/DL (8.5-10.4); CHLORIDE, SERUM 99 MMOL/L (96-112); CO2 (CARBON DIOXIDE) 24 MMOL/L (24-34); PHOSPHORUS, SERUM 4.3 MG/DL (2.5-4.5); POTASSIUM, SERUM 5.1 MMOL/L (3.5-5.3); SODIUM, SERUM 137 MMOL/L (135-148)
[2016-05-27 04:06] LABS: ALBUMIN 2.2 G/DL (3.5-5.0); BUN (BLOOD UREA NITROGEN) 45 MG/DL (6-23); CREATININE 2.26 MG/DL (0.70-1.30); GFR AFRICAN AMERICAN 30 ML/MIN (>=60); GFR NON AFRICAN AMERICAN 26 ML/MIN (>=60); GLUCOSE, SERUM 167 MG/DL (60-99)
[2016-05-27 06:00] LABS: BAND NEUTROPHILS 8 %; LYMPHOCYTES 5 %; LYMPHOCYTES ABSOLUTE (CALC) 1.63 10/3/uL (0.67-4.30); MONOCYTES 5 %; MONOCYTES ABSOLUTE (CALC) 1.63 10/3/uL (0.21-1.20); NEUTROPHILS ABSOLUTE (CALC) 29.34 10/3/uL (2.02-8.40); SEGMENTED NEUTROPHIL (0) 82 %; TOTAL NUCLEATED CELLS 100
[2016-05-27 06:02] LABS: VACUOLATED NEUTROPHILES OCC
[2016-05-27 06:04] LABS: BURR CELLS 1+ (3-10/OIF) (0-2/OIF); SCHISTOCYTES OCC (0-2/OIF)
[2016-05-27 13:16] LABS: CREATININE (RANDOM URINE) 34.1 MG/DL; CREATININE, URINE 34.1 MG/DL; MICROALBUMIN, RANDOM URINE 2.7 MG/DL
[2016-05-28 04:52] LABS: ALLENS TEST Pos; BE (BASE EXCESS) -4.6 MEQ/L (0 +/- 2.5); CARBOXYHEMOGLOBIN 1.1 % (0-3); HCO3 (ACTUAL BICARBONATE) 19.3 MEQ/L (23-27); HEMOBLOGIN CONTENT 9.2 G/DL (14-18); INSTRUMENT SERIAL # 8087; METHEMOGLOBIN 0.4 % (0-3); MODE CMV; O2 CONTENT 12.7 VOL% (18-24); OPERATOR ID 334499; PCO2 (CO2 TENSION) 31 MMHG (35-45); PO2 (O2 TENSION) 110 MMHG (79-93); SAMPLE Arterial; TIDAL VOLUME 450 ML; pH 7.41 (7.37-7.43)
[2016-05-28 04:55] LABS: HEMOGLOBIN 8.9 g/dL (13.6-17.8); MEAN CORPUSCULAR HEMOGLOB 29.9 pg (26.0-34.0); MEAN CORPUSCULAR VOLUME 93.3 fL (80-100); PLATELET COUNT 233 10/3/uL (150-400); RBC DISTRIBUTION WIDTH 16.1 % (12.0-16.0); RED CELL COUNT 2.98 10/6/uL (4.7-6.1)
[2016-05-28 04:56] LABS: HEMATOCRIT 27.8 % (40.0-51.0); MANUAL DIFF YES %; WHITE BLOOD CELLS 15.6 10/3/uL (4.5-10.5)
[2016-05-28 05:08] LABS: ALBUMIN 1.8 G/DL (3.5-5.0); BUN (BLOOD UREA NITROGEN) 42 MG/DL (6-23); CALCIUM, SERUM 8.3 MG/DL (8.5-10.4); CHLORIDE, SERUM 104 MMOL/L (96-112); CO2 (CARBON DIOXIDE) 25 MMOL/L (24-34); PHOSPHORUS, SERUM 3.5 MG/DL (2.5-4.5); SODIUM, SERUM 140 MMOL/L (135-148)
[2016-05-28 05:15] LABS: CREATININE 1.53 MG/DL (0.70-1.30); GFR AFRICAN AMERICAN 48 ML/MIN (>=60); GFR NON AFRICAN AMERICAN 42 ML/MIN (>=60); GLUCOSE, SERUM 121 MG/DL (60-99); POTASSIUM, SERUM 3.7 MMOL/L (3.5-5.3)
[2016-05-28 05:44] LABS: BAND NEUTROPHILS 6 %; ELLIPTOCYTES 1+ (3-10/OIF) (0-2/OIF); EOSINOPHILS 1 %; EOSINOPHILS ABSOLUTE (CALC) 0.16 10/3/uL (0.0-0.53); LYMPHOCYTES 3 %; LYMPHOCYTES ABSOLUTE (CALC) 0.47 10/3/uL (0.67-4.30); MONOCYTES 3 %; MONOCYTES ABSOLUTE (CALC) 0.47 10/3/uL (0.21-1.20); NEUTROPHILS ABSOLUTE (CALC) 14.51 10/3/uL (2.02-8.40); PLATELET ESTIMATE ADQ (ADEQUATE); SEGMENTED NEUTROPHIL (0) 87 %; TOTAL NUCLEATED CELLS 100
[2016-05-28 06:17] LABS: PROCALCITONIN 17.16 ng/mL (<0.5)
[2016-05-28 14:44] LABS: INTERNATIONAL NORMAL RATI 1.3 UNITS (-)
[2016-05-28 14:45] LABS: PARTIAL THROMBO TIME 39.3 SEC (22.5-37.2)
[2016-05-28 16:05] LABS: INFLUENZA A SCREEN NEGATIVE (NEGATIVE); INFLUENZA B SCREEN NEGATIVE (NEGATIVE)
[2016-05-28 16:27] LABS: A/G RATIO 0.5 (0.7-1.9); ALKALINE PHOSPHATASE 77 U/L (45-117); GLOBULIN 3.7 G/DL (2.5-4.1); PREALBUMIN 10.6 MG/DL (17.0-43.0); SGOT(AST) 36 U/L (5-40); SGPT(ALT) 34 U/L (5-65); TOTAL PROTEIN 5.5 G/DL (6.0-8.5)
[2016-05-28 16:28] LABS: TOTAL BILIRUBIN 0.3 MG/DL (0-1.2)
[2016-05-29 04:13] LABS: BE (BASE EXCESS) -0.4 MEQ/L (0 +/- 2.5); CARBOXYHEMOGLOBIN 0.3 % (0-3); HCO3 (ACTUAL BICARBONATE) 25.1 MEQ/L (23-27); HEMOBLOGIN CONTENT 11.4 G/DL (14-18); INSTRUMENT SERIAL # 35151; METHEMOGLOBIN 0.5 % (0-3); O2 CONTENT 15.4 VOL% (18-24); OPERATOR ID 17370; PCO2 (CO2 TENSION) 45 MMHG (35-45); PO2 (O2 TENSION) 87 MMHG (79-93); SAMPLE Arterial; pH 7.37 (7.37-7.43)
[2016-05-29 04:14] LABS: ALLENS TEST Pos; MODE CMV; TIDAL VOLUME 450 ML
[2016-05-29 05:00] LABS: HEMATOCRIT 29.1 % (40.0-51.0); HEMOGLOBIN 9.1 g/dL (13.6-17.8); MANUAL DIFF YES %; MEAN CORPUS HGB CONC 31.3 g/dL (32.0-36.0); MEAN CORPUSCULAR HEMOGLOB 30.6 pg (26.0-34.0); MEAN PLATELET VOLUME 9.7 fL (9.2-13.0); PLATELET COUNT 210 10/3/uL (150-400); RBC DISTRIBUTION WIDTH 15.9 % (12.0-16.0); RED CELL COUNT 2.97 10/6/uL (4.7-6.1)
[2016-05-29 05:04] LABS: PARTIAL THROMBO TIME 58.1 SEC (22.5-37.2)
[2016-05-29 05:17] LABS: CALCIUM, SERUM 8.6 MG/DL (8.5-10.4); CHLORIDE, SERUM 112 MMOL/L (96-112); CO2 (CARBON DIOXIDE) 25 MMOL/L (24-34); CREATININE 1.14 MG/DL (0.70-1.30); GFR AFRICAN AMERICAN 69 ML/MIN (>=60); GFR NON AFRICAN AMERICAN 60 ML/MIN (>=60); GLUCOSE, SERUM 134 MG/DL (60-99); SODIUM, SERUM 144 MMOL/L (135-148)
[2016-05-29 05:18] LABS: BUN (BLOOD UREA NITROGEN) 32 MG/DL (6-23)
[2016-05-29 05:45] LABS: BAND NEUTROPHILS 4 %; LYMPHOCYTES 8 %; LYMPHOCYTES ABSOLUTE (CALC) 0.88 10/3/uL (0.67-4.30); MONOCYTES 2 %; MONOCYTES ABSOLUTE (CALC) 0.22 10/3/uL (0.21-1.20); PLATELET ESTIMATE ADQ (ADEQUATE); RBC MORPHOLOGY NORM (NORMAL); SEGMENTED NEUTROPHIL (0) 86 %; TOTAL NUCLEATED CELLS 100
[2016-05-30 04:25] LABS: HEMATOCRIT 29.5 % (40.0-51.0); HEMOGLOBIN 9.4 g/dL (13.6-17.8); MEAN CORPUS HGB CONC 31.9 g/dL (32.0-36.0); MEAN CORPUSCULAR HEMOGLOB 30.9 pg (26.0-34.0); MEAN PLATELET VOLUME 9.8 fL (9.2-13.0); PLATELET COUNT 245 10/3/uL (150-400); RBC DISTRIBUTION WIDTH 15.9 % (12.0-16.0); RED CELL COUNT 3.04 10/6/uL (4.7-6.1); WHITE BLOOD CELLS 9.1 10/3/uL (4.5-10.5)
[2016-05-30 04:26] LABS: MANUAL DIFF YES %
[2016-05-30 04:34] LABS: BUN (BLOOD UREA NITROGEN) 28 MG/DL (6-23); CHLORIDE, SERUM 114 MMOL/L (96-112); CO2 (CARBON DIOXIDE) 26 MMOL/L (24-34); CREATININE 0.95 MG/DL (0.70-1.30); GFR AFRICAN AMERICAN 86 ML/MIN (>=60); GFR NON AFRICAN AMERICAN 74 ML/MIN (>=60); GLUCOSE, SERUM 139 MG/DL (60-99); POTASSIUM, SERUM 4.1 MMOL/L (3.5-5.3); SODIUM, SERUM 147 MMOL/L (135-148)
[2016-05-30 05:01] LABS: BAND NEUTROPHILS 4 %; BASOPHILS 1 %; BASOPHILS ABSOLUTE (CALC) 0.09 10/3/uL (0.0-0.16); EOSINOPHILS 1 %; EOSINOPHILS ABSOLUTE (CALC) 0.09 10/3/uL (0.0-0.53); IMMATURE GRANS ABSOLUTE (CALC) 0.27 10/3/uL (0.0-0.11); LYMPHOCYTES 5 %; LYMPHOCYTES ABSOLUTE (CALC) 0.46 10/3/uL (0.67-4.30); METAMYELOCYTES 2 %; MONOCYTES 4 %; MONOCYTES ABSOLUTE (CALC) 0.36 10/3/uL (0.21-1.20); MYELOCYTES 1 %; NEUTROPHILS ABSOLUTE (CALC) 7.83 10/3/uL (2.02-8.40); OVALOCYTES 1+ (3-10/OIF) (0-2/OIF); SEGMENTED NEUTROPHIL (0) 82 %; TOTAL NUCLEATED CELLS 100
[2016-05-30 07:02] LABS: PROCALCITONIN 3.07 ng/mL (<0.5)
[2016-05-30 13:07] LABS: ALLENS TEST Pos; BE (BASE EXCESS) 1.1 MEQ/L (0 +/- 2.5); CARBOXYHEMOGLOBIN 0.3 % (0-3); DEVICE NC; HCO3 (ACTUAL BICARBONATE) 25.9 MEQ/L (23-27); HEMOBLOGIN CONTENT 12.3 G/DL (14-18); INSTRUMENT SERIAL # 35151; METHEMOGLOBIN 0.5 % (0-3); O2 CONTENT 16.5 VOL% (18-24); PCO2 (CO2 TENSION) 42 MMHG (35-45); PO2 (O2 TENSION) 87 MMHG (79-93); SAMPLE Arterial; pH 7.41 (7.37-7.43)
[2016-05-30 15:22] LABS: ALLENS TEST Pos; CARBOXYHEMOGLOBIN 0.3 % (0-3); HCO3 (ACTUAL BICARBONATE) 26.6 MEQ/L (23-27); HEMOBLOGIN CONTENT 11.1 G/DL (14-18); INSTRUMENT SERIAL # 35151; METHEMOGLOBIN 0.8 % (0-3); PCO2 (CO2 TENSION) 41 MMHG (35-45); PO2 (O2 TENSION) 86 MMHG (79-93); SAMPLE Arterial; TIDAL VOLUME 450 ML; pH 7.43 (7.37-7.43)
[2016-05-31 04:18] LABS: ALLENS TEST Pos; BE (BASE EXCESS) 3.5 MEQ/L (0 +/- 2.5); CARBOXYHEMOGLOBIN 0.3 % (0-3); HCO3 (ACTUAL BICARBONATE) 28.4 MEQ/L (23-27); HEMOBLOGIN CONTENT 10.9 G/DL (14-18); INSTRUMENT SERIAL # 35151; METHEMOGLOBIN 0.4 % (0-3); MODE CMV; OPERATOR ID 13861; PCO2 (CO2 TENSION) 45 MMHG (35-45); PO2 (O2 TENSION) 102 MMHG (79-93); SAMPLE Arterial; TIDAL VOLUME 450 ML; pH 7.42 (7.37-7.43)
[2016-05-31 05:12] LABS: BASOPHILS 0.2 %; BASOPHILS ABSOLUTE 0.02 10/3/uL (0.0-0.16); EOSINOPHILS 1.4 %; EOSINOPHILS ABSOLUTE 0.14 10/3/uL (0.0-0.53); HEMATOCRIT 28.1 % (40.0-51.0); HEMOGLOBIN 8.6 g/dL (13.6-17.8); IMMATURE GRANULOCYTES 2.1 %; LYMPHOCYTES 13.8 %; LYMPHOCYTES ABSOLUTE 1.34 10/3/uL (0.67-4.30); MEAN CORPUS HGB CONC 30.6 g/dL (32.0-36.0); MEAN CORPUSCULAR HEMOGLOB 30.1 pg (26.0-34.0); MEAN CORPUSCULAR VOLUME 98.3 fL (80-100); MEAN PLATELET VOLUME 9.4 fL (9.2-13.0); MONOCYTES 8.8 %; MONOCYTES ABSOLUTE 0.85 10/3/uL (0.21-1.20); NEUTROPHILS 73.7 %; NEUTROPHILS ABSOLUTE 7.13 10/3/uL (2.02-8.40); RBC DISTRIBUTION WIDTH 15.1 % (12.0-16.0); RED CELL COUNT 2.86 10/6/uL (4.7-6.1); WHITE BLOOD CELLS 9.7 10/3/uL (4.5-10.5)
[2016-05-31 05:20] LABS: BUN (BLOOD UREA NITROGEN) 26 MG/DL (6-23); CALCIUM, SERUM 8.5 MG/DL (8.5-10.4); CHLORIDE, SERUM 111 MMOL/L (96-112); CO2 (CARBON DIOXIDE) 30 MMOL/L (24-34); CREATININE 0.57 MG/DL (0.70-1.30); GFR AFRICAN AMERICAN 111 ML/MIN (>=60); GFR NON AFRICAN AMERICAN 96 ML/MIN (>=60); PHOSPHORUS, SERUM 2.9 MG/DL (2.5-4.5); POTASSIUM, SERUM 3.9 MMOL/L (3.5-5.3); SODIUM, SERUM 149 MMOL/L (135-148)
[2016-05-31 05:23] LABS: GLUCOSE, SERUM 223 MG/DL (60-99)
[2016-05-31 05:27] LABS: MANUAL DIFF NO %; PLATELET COUNT 344 10/3/uL (150-400)
[2016-05-31 15:56] LABS: ASCORBIC ACID (UR NOT ORDER) 40 (NEG); BILIRUBIN, URINE NEGATIVE (NEG); KETONE, URINE NEGATIVE (NEG); LEUKOCYTE ESTERASE(NOT OR TRACE (NEG); WBC (NOT ORDERED) (RFLEX) 11 (0-5)
[2016-05-31 16:49] LABS: TROPONIN I <0.02 NG/ML (<0.05)
[2016-06-01 03:18] LABS: HEMATOCRIT 30.3 % (40.0-51.0); HEMOGLOBIN 9.5 g/dL (13.6-17.8); MEAN CORPUS HGB CONC 31.4 g/dL (32.0-36.0); MEAN CORPUSCULAR HEMOGLOB 29.6 pg (26.0-34.0); MEAN PLATELET VOLUME 9.5 fL (9.2-13.0); RBC DISTRIBUTION WIDTH 16.1 % (12.0-16.0); RED CELL COUNT 3.21 10/6/uL (4.7-6.1); WHITE BLOOD CELLS 8.7 10/3/uL (4.5-10.5)
[2016-06-01 03:25] LABS: MANUAL DIFF YES %; MEAN CORPUSCULAR VOLUME 94.4 fL (80-100); PLATELET COUNT 239 10/3/uL (150-400)
[2016-06-01 03:45] LABS: CALCIUM, SERUM 8.9 MG/DL (8.5-10.4); CHLORIDE, SERUM 108 MMOL/L (96-112); CO2 (CARBON DIOXIDE) 32 MMOL/L (24-34); EOSINOPHILS 3 %; EOSINOPHILS ABSOLUTE (CALC) 0.26 10/3/uL (0.0-0.53); GFR AFRICAN AMERICAN 81 ML/MIN (>=60); GFR NON AFRICAN AMERICAN 70 ML/MIN (>=60); LYMPHOCYTES 11 %; LYMPHOCYTES ABSOLUTE (CALC) 0.96 10/3/uL (0.67-4.30); MONOCYTES 6 %; MONOCYTES ABSOLUTE (CALC) 0.52 10/3/uL (0.21-1.20); NEUTROPHILS ABSOLUTE (CALC) 6.96 10/3/uL (2.02-8.40); PLATELET ESTIMATE ADQ (ADEQUATE); POTASSIUM, SERUM 3.6 MMOL/L (3.5-5.3); SEGMENTED NEUTROPHIL (0) 80 %; SODIUM, SERUM 148 MMOL/L (135-148); TOTAL NUCLEATED CELLS 100
[2016-06-01 03:49] LABS: BUN (BLOOD UREA NITROGEN) 34 MG/DL (6-23); GLUCOSE, SERUM 176 MG/DL (60-99)
[2016-06-01 03:51] LABS: ALLENS TEST Pos; BE (BASE EXCESS) 5.9 MEQ/L (0 +/- 2.5); CARBOXYHEMOGLOBIN 0.3 % (0-3); HCO3 (ACTUAL BICARBONATE) 30.2 MEQ/L (23-27); HEMOBLOGIN CONTENT 10.7 G/DL (14-18); INSTRUMENT SERIAL # 35151; METHEMOGLOBIN 0.4 % (0-3); MODE CMV; O2 CONTENT 14.7 VOL% (18-24); OPERATOR ID 23712; PCO2 (CO2 TENSION) 43 MMHG (35-45); PO2 (O2 TENSION) 99 MMHG (79-93); SAMPLE Arterial; TIDAL VOLUME 450 ML; pH 7.47 (7.37-7.43)
[2016-06-01 04:04] LABS: PROCALCITONIN 1.11 ng/mL (<0.5)
[2016-06-02 04:17] LABS: HEMOGLOBIN 9.4 g/dL (13.6-17.8); MANUAL DIFF YES %; MEAN CORPUS HGB CONC 31.3 g/dL (32.0-36.0); MEAN CORPUSCULAR HEMOGLOB 29.7 pg (26.0-34.0); MEAN CORPUSCULAR VOLUME 94.6 fL (80-100); MEAN PLATELET VOLUME 9.4 fL (9.2-13.0); PLATELET COUNT 257 10/3/uL (150-400); RBC DISTRIBUTION WIDTH 16.1 % (12.0-16.0); RED CELL COUNT 3.17 10/6/uL (4.7-6.1); WHITE BLOOD CELLS 9.5 10/3/uL (4.5-10.5)
[2016-06-02 04:40] LABS: BAND NEUTROPHILS 1 %; BASOPHILS 1 %; IMMATURE GRANS ABSOLUTE (CALC) 0.19 10/3/uL (0.0-0.11); LYMPHOCYTES 8 %; LYMPHOCYTES ABSOLUTE (CALC) 0.76 10/3/uL (0.67-4.30); METAMYELOCYTES 2 %; MONOCYTES 3 %; MONOCYTES ABSOLUTE (CALC) 0.29 10/3/uL (0.21-1.20); NEUTROPHILS ABSOLUTE (CALC) 8.17 10/3/uL (2.02-8.40); SEGMENTED NEUTROPHIL (0) 85 %; TOTAL NUCLEATED CELLS 100
[2016-06-02 04:41] LABS: PLATELET ESTIMATE ADQ (ADEQUATE); POLYCHROMASIA 1+ (2-5/OIF) (0-1/OIF); TOXIC GRANULATION 1+
[2016-06-02 05:58] LABS: A/G RATIO 0.5 (0.7-1.9); ALBUMIN 1.8 G/DL (3.5-5.0); ALKALINE PHOSPHATASE 61 U/L (45-117); BUN (BLOOD UREA NITROGEN) 36 MG/DL (6-23); CALCIUM, SERUM 8.6 MG/DL (8.5-10.4); CHLORIDE, SERUM 109 MMOL/L (96-112); CO2 (CARBON DIOXIDE) 29 MMOL/L (24-34); CREATININE 0.92 MG/DL (0.70-1.30); GFR AFRICAN AMERICAN 89 ML/MIN (>=60); GFR NON AFRICAN AMERICAN 77 ML/MIN (>=60); GLOBULIN 3.6 G/DL (2.5-4.1); GLUCOSE, SERUM 155 MG/DL (60-99); PHOSPHORUS, SERUM 2.9 MG/DL (2.5-4.5); POTASSIUM, SERUM 4.2 MMOL/L (3.5-5.3); SGOT(AST) 18 U/L (5-40); SGPT(ALT) 35 U/L (5-65); SODIUM, SERUM 148 MMOL/L (135-148); TOTAL BILIRUBIN 0.2 MG/DL (0-1.2); TOTAL PROTEIN 5.4 G/DL (6.0-8.5)
[2016-06-03 03:50] LABS: ALLENS TEST Pos; BE (BASE EXCESS) 3.3 MEQ/L (0 +/- 2.5); CARBOXYHEMOGLOBIN 0.3 % (0-3); HCO3 (ACTUAL BICARBONATE) 27.4 MEQ/L (23-27); HEMOBLOGIN CONTENT 10.5 G/DL (14-18); INSTRUMENT SERIAL # 35151; METHEMOGLOBIN 0.5 % (0-3); MODE CMV; O2 CONTENT 14.5 VOL% (18-24); OPERATOR ID 13861; PCO2 (CO2 TENSION) 40 MMHG (35-45); PO2 (O2 TENSION) 115 MMHG (79-93); SAMPLE Arterial; TIDAL VOLUME 450 ML; pH 7.46 (7.37-7.43)
[2016-06-03 04:25] LABS: HEMATOCRIT 30.4 % (40.0-51.0); HEMOGLOBIN 9.6 g/dL (13.6-17.8); MANUAL DIFF YES %; MEAN CORPUS HGB CONC 31.6 g/dL (32.0-36.0); MEAN CORPUSCULAR HEMOGLOB 30.6 pg (26.0-34.0); MEAN CORPUSCULAR VOLUME 96.8 fL (80-100); MEAN PLATELET VOLUME 9.4 fL (9.2-13.0); PLATELET COUNT 262 10/3/uL (150-400); RBC DISTRIBUTION WIDTH 16.4 % (12.0-16.0); RED CELL COUNT 3.14 10/6/uL (4.7-6.1); WHITE BLOOD CELLS 10.8 10/3/uL (4.5-10.5)
[2016-06-03 04:41] LABS: BUN (BLOOD UREA NITROGEN) 36 MG/DL (6-23); CALCIUM, SERUM 8.8 MG/DL (8.5-10.4); CHLORIDE, SERUM 109 MMOL/L (96-112); CO2 (CARBON DIOXIDE) 30 MMOL/L (24-34); CREATININE 0.92 MG/DL (0.70-1.30); GFR AFRICAN AMERICAN 89 ML/MIN (>=60); GFR NON AFRICAN AMERICAN 77 ML/MIN (>=60); GLUCOSE, SERUM 124 MG/DL (60-99); POTASSIUM, SERUM 4.2 MMOL/L (3.5-5.3); SODIUM, SERUM 146 MMOL/L (135-148)
[2016-06-03 04:43] LABS: BAND NEUTROPHILS 2 %; EOSINOPHILS 1 %; EOSINOPHILS ABSOLUTE (CALC) 0.11 10/3/uL (0.0-0.53); IMMATURE GRANS ABSOLUTE (CALC) 0.22 10/3/uL (0.0-0.11); LYMPHOCYTES 9 %; LYMPHOCYTES ABSOLUTE (CALC) 0.97 10/3/uL (0.67-4.30); METAMYELOCYTES 1 %; MONOCYTES 4 %; MONOCYTES ABSOLUTE (CALC) 0.43 10/3/uL (0.21-1.20); MYELOCYTES 1 %; NEUTROPHILS ABSOLUTE (CALC) 9.07 10/3/uL (2.02-8.40); PLATELET ESTIMATE ADQ (ADEQUATE); SEGMENTED NEUTROPHIL (0) 82 %; TOTAL NUCLEATED CELLS 100
[2016-06-03 04:44] LABS: TOXIC GRANULATION 1+
[2016-06-03 04:45] LABS: POLYCHROMASIA 1+ (2-5/OIF) (0-1/OIF)
[2016-06-04 03:57] LABS: BE (BASE EXCESS) 6.6 MEQ/L (0 +/- 2.5); CARBOXYHEMOGLOBIN 0.3 % (0-3); HCO3 (ACTUAL BICARBONATE) 30.9 MEQ/L (23-27); HEMOBLOGIN CONTENT 12.8 G/DL (14-18); INSTRUMENT SERIAL # 35151; METHEMOGLOBIN 0.5 % (0-3); MODE CMV; O2 CONTENT 17.6 VOL% (18-24); OPERATOR ID 30013; PCO2 (CO2 TENSION) 43 MMHG (35-45); PO2 (O2 TENSION) 106 MMHG (79-93); SAMPLE Arterial; TIDAL VOLUME 450 ML; pH 7.47 (7.37-7.43)
[2016-06-04 03:58] LABS: ALLENS TEST Pos
[2016-06-04 04:14] LABS: HEMATOCRIT 30.8 % (40.0-51.0); HEMOGLOBIN 9.9 g/dL (13.6-17.8); MEAN CORPUS HGB CONC 32.1 g/dL (32.0-36.0); MEAN CORPUSCULAR HEMOGLOB 30.8 pg (26.0-34.0); MEAN PLATELET VOLUME 9.5 fL (9.2-13.0); PLATELET COUNT 277 10/3/uL (150-400); RBC DISTRIBUTION WIDTH 16.5 % (12.0-16.0); RED CELL COUNT 3.21 10/6/uL (4.7-6.1); WHITE BLOOD CELLS 11.6 10/3/uL (4.5-10.5)
[2016-06-04 04:17] LABS: MANUAL DIFF YES %
[2016-06-04 04:33] LABS: A/G RATIO 0.5 (0.7-1.9); ALBUMIN 1.9 G/DL (3.5-5.0); ALKALINE PHOSPHATASE 53 U/L (45-117); BUN (BLOOD UREA NITROGEN) 35 MG/DL (6-23); CALCIUM, SERUM 9.2 MG/DL (8.5-10.4); CHLORIDE, SERUM 108 MMOL/L (96-112); CO2 (CARBON DIOXIDE) 31 MMOL/L (24-34); CREATININE 1.08 MG/DL (0.70-1.30); GFR AFRICAN AMERICAN 74 ML/MIN (>=60); GFR NON AFRICAN AMERICAN 64 ML/MIN (>=60); GLOBULIN 3.9 G/DL (2.5-4.1); PHOSPHORUS, SERUM 2.8 MG/DL (2.5-4.5); POTASSIUM, SERUM 4.5 MMOL/L (3.5-5.3); SGOT(AST) 25 U/L (5-40); SGPT(ALT) 29 U/L (5-65); SODIUM, SERUM 147 MMOL/L (135-148); TOTAL BILIRUBIN 0.3 MG/DL (0-1.2); TOTAL PROTEIN 5.8 G/DL (6.0-8.5)
[2016-06-04 04:42] LABS: GLUCOSE, SERUM 165 MG/DL (60-99)
[2016-06-04 04:55] LABS: BAND NEUTROPHILS 3 %; BASOPHILS 1 %; BASOPHILS ABSOLUTE (CALC) 0.12 10/3/uL (0.0-0.16); EOSINOPHILS 1 %; EOSINOPHILS ABSOLUTE (CALC) 0.12 10/3/uL (0.0-0.53); IMMATURE GRANS ABSOLUTE (CALC) 0.12 10/3/uL (0.0-0.11); LYMPHOCYTES 7 %; LYMPHOCYTES ABSOLUTE (CALC) 0.81 10/3/uL (0.67-4.30); METAMYELOCYTES 1 %; MONOCYTES 1 %; MONOCYTES ABSOLUTE (CALC) 0.12 10/3/uL (0.21-1.20); NEUTROPHILS ABSOLUTE (CALC) 10.32 10/3/uL (2.02-8.40); SEGMENTED NEUTROPHIL (0) 86 %; TOTAL NUCLEATED CELLS 100
[2016-06-04 04:56] LABS: OVALOCYTES 1+ (3-10/OIF) (0-2/OIF); PLATELET ESTIMATE ADQ (ADEQUATE); RBC MORPHOLOGY ABN (NORMAL); TEARDROP SHAPED RBCS FEW (3-10/OIF)
[2016-06-05 04:09] LABS: HEMOGLOBIN 9.7 g/dL (13.6-17.8); MEAN CORPUS HGB CONC 31.3 g/dL (32.0-36.0); MEAN CORPUSCULAR HEMOGLOB 30.4 pg (26.0-34.0); MEAN CORPUSCULAR VOLUME 97.2 fL (80-100); MEAN PLATELET VOLUME 9.7 fL (9.2-13.0); PLATELET COUNT 269 10/3/uL (150-400); RBC DISTRIBUTION WIDTH 16.6 % (12.0-16.0); RED CELL COUNT 3.19 10/6/uL (4.7-6.1); WHITE BLOOD CELLS 11.2 10/3/uL (4.5-10.5)
[2016-06-05 04:10] LABS: MANUAL DIFF YES %
[2016-06-05 04:19] LABS: ALBUMIN 1.9 G/DL (3.5-5.0); CALCIUM, SERUM 8.9 MG/DL (8.5-10.4); CHLORIDE, SERUM 109 MMOL/L (96-112); CO2 (CARBON DIOXIDE) 32 MMOL/L (24-34); CREATININE 1.16 MG/DL (0.70-1.30); GFR AFRICAN AMERICAN 68 ML/MIN (>=60); GFR NON AFRICAN AMERICAN 58 ML/MIN (>=60); GLUCOSE, SERUM 169 MG/DL (60-99); PHOSPHORUS, SERUM 3.1 MG/DL (2.5-4.5); POTASSIUM, SERUM 4.1 MMOL/L (3.5-5.3); SODIUM, SERUM 148 MMOL/L (135-148)
[2016-06-05 04:24] LABS: BUN (BLOOD UREA NITROGEN) 42 MG/DL (6-23)
[2016-06-05 04:37] LABS: BAND NEUTROPHILS 3 %; EOSINOPHILS 2 %; EOSINOPHILS ABSOLUTE (CALC) 0.22 10/3/uL (0.0-0.53); LYMPHOCYTES 6 %; LYMPHOCYTES ABSOLUTE (CALC) 0.67 10/3/uL (0.67-4.30); MONOCYTES 4 %; MONOCYTES ABSOLUTE (CALC) 0.45 10/3/uL (0.21-1.20); NEUTROPHILS ABSOLUTE (CALC) 9.86 10/3/uL (2.02-8.40); PLATELET ESTIMATE ADQ (ADEQUATE); SEGMENTED NEUTROPHIL (0) 85 %; TOTAL NUCLEATED CELLS 100
[2016-06-05 04:38] LABS: RBC MORPHOLOGY NORM (NORMAL)
[2016-06-06 05:01] LABS: HEMATOCRIT 29.5 % (40.0-51.0); HEMOGLOBIN 9.2 g/dL (13.6-17.8); MEAN CORPUS HGB CONC 31.2 g/dL (32.0-36.0); MEAN CORPUSCULAR HEMOGLOB 30.5 pg (26.0-34.0); MEAN CORPUSCULAR VOLUME 97.7 fL (80-100); MEAN PLATELET VOLUME 9.8 fL (9.2-13.0); PLATELET COUNT 263 10/3/uL (150-400); RBC DISTRIBUTION WIDTH 16.7 % (12.0-16.0); RED CELL COUNT 3.02 10/6/uL (4.7-6.1); WHITE BLOOD CELLS 9.4 10/3/uL (4.5-10.5)
[2016-06-06 05:02] LABS: MANUAL DIFF YES %
[2016-06-06 05:22] LABS: A/G RATIO 0.4 (0.7-1.9); ALBUMIN 1.7 G/DL (3.5-5.0); ALKALINE PHOSPHATASE 46 U/L (45-117); BUN (BLOOD UREA NITROGEN) 43 MG/DL (6-23); CALCIUM, SERUM 8.5 MG/DL (8.5-10.4); CHLORIDE, SERUM 111 MMOL/L (96-112); CO2 (CARBON DIOXIDE) 32 MMOL/L (24-34); CREATININE 1.09 MG/DL (0.70-1.30); GFR AFRICAN AMERICAN 73 ML/MIN (>=60); GFR NON AFRICAN AMERICAN 63 ML/MIN (>=60); GLOBULIN 3.9 G/DL (2.5-4.1); GLUCOSE, SERUM 178 MG/DL (60-99); PHOSPHORUS, SERUM 3.2 MG/DL (2.5-4.5); SGOT(AST) 20 U/L (5-40); SGPT(ALT) 28 U/L (5-65); SODIUM, SERUM 150 MMOL/L (135-148); TOTAL BILIRUBIN 0.2 MG/DL (0-1.2); TOTAL PROTEIN 5.6 G/DL (6.0-8.5)
[2016-06-06 05:27] LABS: BAND NEUTROPHILS 1 %; EOSINOPHILS 2 %; EOSINOPHILS ABSOLUTE (CALC) 0.19 10/3/uL (0.0-0.53); IMMATURE GRANS ABSOLUTE (CALC) 0.38 10/3/uL (0.0-0.11); LYMPHOCYTES 11 %; LYMPHOCYTES ABSOLUTE (CALC) 1.03 10/3/uL (0.67-4.30); METAMYELOCYTES 4 %; MONOCYTES 6 %; MONOCYTES ABSOLUTE (CALC) 0.56 10/3/uL (0.21-1.20); NEUTROPHILS ABSOLUTE (CALC) 7.24 10/3/uL (2.02-8.40); SEGMENTED NEUTROPHIL (0) 76 %; TOTAL NUCLEATED CELLS 100
[2016-06-06 05:28] LABS: ANISOCYTOSIS 1+ (5-10/OIF) (0-5/OIF); PLATELET ESTIMATE ADQ (ADEQUATE)
[2016-06-06 05:29] LABS: STOMATOCYTES 1+ (3-10/OIF) (0-2/OIF)
[2016-06-07 03:50] LABS: HEMOGLOBIN 9.2 g/dL (13.6-17.8); MEAN CORPUS HGB CONC 30.7 g/dL (32.0-36.0); MEAN CORPUSCULAR HEMOGLOB 29.6 pg (26.0-34.0); MEAN CORPUSCULAR VOLUME 96.5 fL (80-100); MEAN PLATELET VOLUME 9.8 fL (9.2-13.0); PLATELET COUNT 287 10/3/uL (150-400); RBC DISTRIBUTION WIDTH 16.6 % (12.0-16.0); RED CELL COUNT 3.11 10/6/uL (4.7-6.1); WHITE BLOOD CELLS 10.7 10/3/uL (4.5-10.5)
[2016-06-07 03:52] LABS: MANUAL DIFF YES %
[2016-06-07 04:11] LABS: ALBUMIN 1.8 G/DL (3.5-5.0); CALCIUM, SERUM 8.4 MG/DL (8.5-10.4); CHLORIDE, SERUM 107 MMOL/L (96-112); CO2 (CARBON DIOXIDE) 32 MMOL/L (24-34); GFR AFRICAN AMERICAN 72 ML/MIN (>=60); GFR NON AFRICAN AMERICAN 62 ML/MIN (>=60); GLUCOSE, SERUM 170 MG/DL (60-99); PHOSPHORUS, SERUM 3.2 MG/DL (2.5-4.5); POTASSIUM, SERUM 4.1 MMOL/L (3.5-5.3); SODIUM, SERUM 146 MMOL/L (135-148)
[2016-06-07 04:16] LABS: BUN (BLOOD UREA NITROGEN) 38 MG/DL (6-23)
[2016-06-07 04:42] LABS: BAND NEUTROPHILS 3 %; BASOPHILS 2 %; BASOPHILS ABSOLUTE (CALC) 0.21 10/3/uL (0.0-0.16); EOSINOPHILS 5 %; EOSINOPHILS ABSOLUTE (CALC) 0.54 10/3/uL (0.0-0.53); LYMPHOCYTES 10 %; LYMPHOCYTES ABSOLUTE (CALC) 1.07 10/3/uL (0.67-4.30); MONOCYTES 6 %; MONOCYTES ABSOLUTE (CALC) 0.64 10/3/uL (0.21-1.20); NEUTROPHILS ABSOLUTE (CALC) 8.24 10/3/uL (2.02-8.40); SEGMENTED NEUTROPHIL (0) 74 %; TOTAL NUCLEATED CELLS 100
[2016-06-07 04:43] LABS: PLATELET ESTIMATE ADQ (ADEQUATE); RBC MORPHOLOGY NORM (NORMAL)
[2016-06-07 05:50] LABS: PROCALCITONIN 0.33 ng/mL (<0.5)
[2016-06-08 04:40] LABS: ALBUMIN 1.8 G/DL (3.5-5.0); CALCIUM, SERUM 8.3 MG/DL (8.5-10.4); CHLORIDE, SERUM 103 MMOL/L (96-112); CO2 (CARBON DIOXIDE) 33 MMOL/L (24-34); CREATININE 0.93 MG/DL (0.70-1.30); GFR AFRICAN AMERICAN 88 ML/MIN (>=60); GFR NON AFRICAN AMERICAN 76 ML/MIN (>=60); PHOSPHORUS, SERUM 3.2 MG/DL (2.5-4.5); POTASSIUM, SERUM 4.4 MMOL/L (3.5-5.3); SODIUM, SERUM 141 MMOL/L (135-148)
[2016-06-08 04:43] LABS: BUN (BLOOD UREA NITROGEN) 29 MG/DL (6-23); GLUCOSE, SERUM 124 MG/DL (60-99)
[2016-06-08 05:21] LABS: HEMOGLOBIN 9.4 g/dL (13.6-17.8); MEAN CORPUS HGB CONC 31.3 g/dL (32.0-36.0); MEAN CORPUSCULAR HEMOGLOB 30.2 pg (26.0-34.0); MEAN CORPUSCULAR VOLUME 96.5 fL (80-100); MEAN PLATELET VOLUME 9.9 fL (9.2-13.0); PLATELET COUNT 292 10/3/uL (150-400); RBC DISTRIBUTION WIDTH 16.3 % (12.0-16.0); RED CELL COUNT 3.11 10/6/uL (4.7-6.1); WHITE BLOOD CELLS 9.7 10/3/uL (4.5-10.5)
[2016-06-08 05:31] LABS: MANUAL DIFF YES %
[2016-06-08 06:12] LABS: BAND NEUTROPHILS 3 %; BASOPHILS 1 %; EOSINOPHILS 5 %; EOSINOPHILS ABSOLUTE (CALC) 0.49 10/3/uL (0.0-0.53); LYMPHOCYTES 14 %; LYMPHOCYTES ABSOLUTE (CALC) 1.36 10/3/uL (0.67-4.30); MONOCYTES 4 %; MONOCYTES ABSOLUTE (CALC) 0.39 10/3/uL (0.21-1.20); NEUTROPHILS ABSOLUTE (CALC) 7.37 10/3/uL (2.02-8.40); SEGMENTED NEUTROPHIL (0) 73 %; TOTAL NUCLEATED CELLS 100
[2016-06-08 06:13] LABS: PLATELET ESTIMATE ADQ (ADEQUATE); RBC MORPHOLOGY NORM (NORMAL)
[2016-06-08 18:04] LABS: ALBUMIN 1.9 G/DL (3.5-5.0); BUN (BLOOD UREA NITROGEN) 29 MG/DL (6-23); CALCIUM, SERUM 8.8 MG/DL (8.5-10.4); CHLORIDE, SERUM 101 MMOL/L (96-112); CO2 (CARBON DIOXIDE) 31 MMOL/L (24-34); CREATININE 0.92 MG/DL (0.70-1.30); GFR AFRICAN AMERICAN 89 ML/MIN (>=60); GFR NON AFRICAN AMERICAN 77 ML/MIN (>=60); PHOSPHORUS, SERUM 3.4 MG/DL (2.5-4.5); POTASSIUM, SERUM 4.5 MMOL/L (3.5-5.3); SODIUM, SERUM 139 MMOL/L (135-148)
[2016-06-08 18:05] LABS: GLUCOSE, SERUM 163 MG/DL (60-99)
[2016-06-09 06:24] LABS: HEMATOCRIT 32.9 % (40.0-51.0); HEMOGLOBIN 10.5 g/dL (13.6-17.8); MEAN CORPUS HGB CONC 31.9 g/dL (32.0-36.0); MEAN CORPUSCULAR HEMOGLOB 30.1 pg (26.0-34.0); MEAN CORPUSCULAR VOLUME 94.3 fL (80-100); MEAN PLATELET VOLUME 9.5 fL (9.2-13.0); PLATELET COUNT 333 10/3/uL (150-400); RBC DISTRIBUTION WIDTH 16.1 % (12.0-16.0); RED CELL COUNT 3.49 10/6/uL (4.7-6.1); WHITE BLOOD CELLS 12.4 10/3/uL (4.5-10.5)
[2016-06-09 06:26] LABS: MANUAL DIFF YES %
[2016-06-09 06:46] LABS: ALBUMIN 2.1 G/DL (3.5-5.0); CALCIUM, SERUM 8.6 MG/DL (8.5-10.4); CHLORIDE, SERUM 100 MMOL/L (96-112); CO2 (CARBON DIOXIDE) 30 MMOL/L (24-34); CREATININE 1.13 MG/DL (0.70-1.30); GFR AFRICAN AMERICAN 70 ML/MIN (>=60); GFR NON AFRICAN AMERICAN 60 ML/MIN (>=60); POTASSIUM, SERUM 4.6 MMOL/L (3.5-5.3); SODIUM, SERUM 138 MMOL/L (135-148)
[2016-06-09 06:51] LABS: BAND NEUTROPHILS 15 %; HYPOCHROMIA 1+ (3-10/OIF) (0-2/OIF); LYMPHOCYTES 10 %; LYMPHOCYTES ABSOLUTE (CALC) 1.24 10/3/uL (0.67-4.30); MONOCYTES 3 %; MONOCYTES ABSOLUTE (CALC) 0.37 10/3/uL (0.21-1.20); NEUTROPHILS ABSOLUTE (CALC) 10.79 10/3/uL (2.02-8.40); PLATELET ESTIMATE ADQ (ADEQUATE); SEGMENTED NEUTROPHIL (0) 72 %; TOTAL NUCLEATED CELLS 100
[2016-06-09 06:52] LABS: BUN (BLOOD UREA NITROGEN) 33 MG/DL (6-23); GLUCOSE, SERUM 235 MG/DL (60-99); PHOSPHORUS, SERUM 4.4 MG/DL (2.5-4.5)
[2016-06-10 03:42] LABS: HEMOGLOBIN 9.6 g/dL (13.6-17.8); MEAN CORPUSCULAR HEMOGLOB 30.4 pg (26.0-34.0); MEAN CORPUSCULAR VOLUME 94.9 fL (80-100); MEAN PLATELET VOLUME 9.7 fL (9.2-13.0); PLATELET COUNT 353 10/3/uL (150-400); RED CELL COUNT 3.16 10/6/uL (4.7-6.1); WHITE BLOOD CELLS 10.7 10/3/uL (4.5-10.5)
[2016-06-10 03:44] LABS: MANUAL DIFF YES %
[2016-06-10 03:54] LABS: BUN (BLOOD UREA NITROGEN) 37 MG/DL (6-23); CALCIUM, SERUM 8.5 MG/DL (8.5-10.4); CHLORIDE, SERUM 103 MMOL/L (96-112); CO2 (CARBON DIOXIDE) 29 MMOL/L (24-34); CREATININE 1.01 MG/DL (0.70-1.30); GFR AFRICAN AMERICAN 80 ML/MIN (>=60); GFR NON AFRICAN AMERICAN 69 ML/MIN (>=60); GLUCOSE, SERUM 165 MG/DL (60-99); POTASSIUM, SERUM 3.4 MMOL/L (3.5-5.3); SODIUM, SERUM 142 MMOL/L (135-148)
[2016-06-10 04:08] LABS: BAND NEUTROPHILS 1 %; IMMATURE GRANS ABSOLUTE (CALC) 0.11 10/3/uL (0.0-0.11); LYMPHOCYTES 3 %; LYMPHOCYTES ABSOLUTE (CALC) 0.32 10/3/uL (0.67-4.30); METAMYELOCYTES 1 %; MONOCYTES 3 %; MONOCYTES ABSOLUTE (CALC) 0.32 10/3/uL (0.21-1.20); NEUTROPHILS ABSOLUTE (CALC) 9.95 10/3/uL (2.02-8.40); PLATELET ESTIMATE ADQ (ADEQUATE); RBC MORPHOLOGY NORM (NORMAL); SEGMENTED NEUTROPHIL (0) 92 %; TOTAL NUCLEATED CELLS 100
[2016-06-11 04:53] LABS: HEMATOCRIT 32.1 % (40.0-51.0); HEMOGLOBIN 10.1 g/dL (13.6-17.8); MEAN CORPUS HGB CONC 31.5 g/dL (32.0-36.0); MEAN CORPUSCULAR HEMOGLOB 30.1 pg (26.0-34.0); MEAN CORPUSCULAR VOLUME 95.5 fL (80-100); MEAN PLATELET VOLUME 9.5 fL (9.2-13.0); PLATELET COUNT 429 10/3/uL (150-400); RBC DISTRIBUTION WIDTH 16.4 % (12.0-16.0); RED CELL COUNT 3.36 10/6/uL (4.7-6.1); WHITE BLOOD CELLS 9.9 10/3/uL (4.5-10.5)
[2016-06-11 04:55] LABS: MANUAL DIFF YES %
[2016-06-11 05:03] LABS: ALBUMIN 2.2 G/DL (3.5-5.0); CALCIUM, SERUM 8.9 MG/DL (8.5-10.4); CHLORIDE, SERUM 108 MMOL/L (96-112); CO2 (CARBON DIOXIDE) 29 MMOL/L (24-34); CREATININE 0.97 MG/DL (0.70-1.30); GFR AFRICAN AMERICAN 84 ML/MIN (>=60); GFR NON AFRICAN AMERICAN 72 ML/MIN (>=60); POTASSIUM, SERUM 3.6 MMOL/L (3.5-5.3); SODIUM, SERUM 145 MMOL/L (135-148)
[2016-06-11 05:06] LABS: BUN (BLOOD UREA NITROGEN) 45 MG/DL (6-23); GLUCOSE, SERUM 113 MG/DL (60-99); PHOSPHORUS, SERUM 2.6 MG/DL (2.5-4.5)
[2016-06-11 05:30] LABS: BAND NEUTROPHILS 3 %; LYMPHOCYTES 11 %; LYMPHOCYTES ABSOLUTE (CALC) 1.09 10/3/uL (0.67-4.30); METAMYELOCYTES 3 %; MONOCYTES 5 %; MYELOCYTES 1 %; NEUTROPHILS ABSOLUTE (CALC) 7.92 10/3/uL (2.02-8.40); SEGMENTED NEUTROPHIL (0) 77 %; TOTAL NUCLEATED CELLS 100
[2016-06-11 05:32] LABS: PLATELET ESTIMATE SLT INC (ADEQUATE); RBC MORPHOLOGY NORM (NORMAL)
[2016-06-12 06:09] LABS: HEMATOCRIT 30.6 % (40.0-51.0); HEMOGLOBIN 9.7 g/dL (13.6-17.8); MANUAL DIFF YES %; MEAN CORPUS HGB CONC 31.7 g/dL (32.0-36.0); MEAN CORPUSCULAR HEMOGLOB 30.4 pg (26.0-34.0); MEAN CORPUSCULAR VOLUME 95.9 fL (80-100); MEAN PLATELET VOLUME 9.6 fL (9.2-13.0); PLATELET COUNT 413 10/3/uL (150-400); RBC DISTRIBUTION WIDTH 16.5 % (12.0-16.0); RED CELL COUNT 3.19 10/6/uL (4.7-6.1); WHITE BLOOD CELLS 6.5 10/3/uL (4.5-10.5)
[2016-06-12 06:19] LABS: CALCIUM, SERUM 8.6 MG/DL (8.5-10.4); CHLORIDE, SERUM 113 MMOL/L (96-112); CO2 (CARBON DIOXIDE) 26 MMOL/L (24-34); CREATININE 0.85 MG/DL (0.70-1.30); GFR AFRICAN AMERICAN 94 ML/MIN (>=60); GFR NON AFRICAN AMERICAN 81 ML/MIN (>=60); SODIUM, SERUM 146 MMOL/L (135-148)
[2016-06-12 06:23] LABS: BUN (BLOOD UREA NITROGEN) 37 MG/DL (6-23); GLUCOSE, SERUM 140 MG/DL (60-99)
[2016-06-12 06:35] LABS: BAND NEUTROPHILS 2 %; IMMATURE GRANS ABSOLUTE (CALC) 0.39 10/3/uL (0.0-0.11); LYMPHOCYTES 12 %; LYMPHOCYTES ABSOLUTE (CALC) 0.78 10/3/uL (0.67-4.30); METAMYELOCYTES 6 %; MONOCYTES 12 %; MONOCYTES ABSOLUTE (CALC) 0.78 10/3/uL (0.21-1.20); NEUTROPHILS ABSOLUTE (CALC) 4.55 10/3/uL (2.02-8.40); PLATELET ESTIMATE SLT INC (ADEQUATE); SEGMENTED NEUTROPHIL (0) 68 %; TOTAL NUCLEATED CELLS 100
[2016-06-12 06:36] LABS: RBC MORPHOLOGY NORM (NORMAL)
[2016-06-14 13:16] LABS: HEMATOCRIT 31.7 % (40.0-51.0); HEMOGLOBIN 9.7 g/dL (13.6-17.8); MEAN CORPUS HGB CONC 30.6 g/dL (32.0-36.0); MEAN CORPUSCULAR HEMOGLOB 29.5 pg (26.0-34.0); MEAN CORPUSCULAR VOLUME 96.4 fL (80-100); MEAN PLATELET VOLUME 9.4 fL (9.2-13.0); PLATELET COUNT 390 10/3/uL (150-400); RBC DISTRIBUTION WIDTH 17.3 % (12.0-16.0); RED CELL COUNT 3.29 10/6/uL (4.7-6.1)
[2016-06-14 13:17] LABS: MANUAL DIFF YES %; WHITE BLOOD CELLS 9.5 10/3/uL (4.5-10.5)
[2016-06-14 13:29] LABS: BUN (BLOOD UREA NITROGEN) 27 MG/DL (6-23); CALCIUM, SERUM 8.7 MG/DL (8.5-10.4); CHLORIDE, SERUM 120 MMOL/L (96-112); CO2 (CARBON DIOXIDE) 26 MMOL/L (24-34); CREATININE 0.85 MG/DL (0.70-1.30); GFR AFRICAN AMERICAN 94 ML/MIN (>=60); GFR NON AFRICAN AMERICAN 81 ML/MIN (>=60); GLUCOSE, SERUM 145 MG/DL (60-99); POTASSIUM, SERUM 4.5 MMOL/L (3.5-5.3); SODIUM, SERUM 153 MMOL/L (135-148)
[2016-06-14 13:39] LABS: ANISOCYTOSIS 1+ (5-10/OIF) (0-5/OIF); LYMPHOCYTES 10 %; LYMPHOCYTES ABSOLUTE (CALC) 0.95 10/3/uL (0.67-4.30); METAMYELOCYTES 1 %; MONOCYTES 5 %; MONOCYTES ABSOLUTE (CALC) 0.48 10/3/uL (0.21-1.20); NEUTROPHILS ABSOLUTE (CALC) 7.98 10/3/uL (2.02-8.40); PLATELET ESTIMATE ADQ (ADEQUATE); POLYCHROMASIA 1+ (2-5/OIF) (0-1/OIF); SEGMENTED NEUTROPHIL (0) 84 %; TOTAL NUCLEATED CELLS 100
[2016-06-14 15:26] LABS: PROCALCITONIN 0.11 ng/mL (<0.5)
[2016-06-14 16:07] LABS: WBC (NOT ORDERED) (RFLEX) 0 (0-5)
[2016-06-14 16:17] LABS: ASCORBIC ACID (UR NOT ORDER) 40 (NEG); BILIRUBIN, URINE NEGATIVE (NEG); KETONE, URINE NEGATIVE (NEG); LEUKOCYTE ESTERASE(NOT OR NEG (NEG)
[2016-11-13] MEDS ORDERED: SIN25 PO (20:08)
[2016-11-13] MEDS ORDERED: BROVANA15 MCG INH (20:08)
[2016-11-13] MEDS ORDERED: LIPITOR20 PO (20:08)
[2016-11-13] MEDS ORDERED: ARICEPT10 PO (20:09)
[2016-11-13] MEDS ORDERED: EXELON9.5T TOP (20:10)
[2016-11-13] MEDS ORDERED: ARICEPT5 PO (20:10)
[2016-11-13] MEDS ORDERED: FLORASTOR250 MG PO (20:11)
[2016-11-13] MEDS ORDERED: DUONEB INH (20:13)
[2016-11-13] MEDS ORDERED: LEVOTHYROXIN75 MCG PO (20:13)
[2016-11-13] MEDS ORDERED: NAMENDA5 PEG (20:14)
[2016-11-13] MEDS ORDERED: ZYPREXA10 MG PO (20:15)
[2016-11-13] MEDS ORDERED: LOP25 PEG (20:15)
[2016-11-13] MEDS ORDERED: PACERONE100 MG PO (20:17)
[2016-11-13] MEDS ORDERED: K-TABS10 MEQ PO (20:18)
[2016-11-13] MEDS ORDERED: EFFEX75 PO (20:18)
[2016-11-13] MEDS ORDERED: RESTASIS OPH (20:18)
[2016-11-13] MEDS ORDERED: FLOMAX4 PO (20:18)
[2016-11-13] MEDS ORDERED: XARELTO20 MG PO (20:19)
[2016-12-31] MEDS ORDERED: PACERONE100 MG PEG (08:57)
[2016-12-31] MEDS ORDERED: FLOMAX4 PEG (08:57)
[2016-12-31] MEDS ORDERED: LOP25 PEG (08:57)
[2016-12-31] MEDS ORDERED: ARICEPT10 PEG (08:58)
[2016-12-31] MEDS ORDERED: LIPITOR20 PEG (08:58)
[2016-12-31] MEDS ORDERED: NAMENDA5 PEG (08:58)
[2016-12-31] MEDS ORDERED: XARELTO20 MG PEG (08:59)
[2016-12-31] MEDS ORDERED: SYN075 PEG (08:59)
[2016-12-31] MEDS ORDERED: ZYPREXA10 MG PEG (08:59)
[2016-12-31] MEDS ORDERED: SIN25 PEG (09:00)
[2016-12-31] MEDS ORDERED: RESTASIS OPH (09:00)
[2016-12-31] MEDS ORDERED: EFFEXOR XR150 MG PEG (09:00)
[2016-12-31] MEDS ORDERED: FLORASTOR250 MG PEG (09:01)
[2016-12-31] MEDS ORDERED: KCL20UDL PEG (09:01)
[2016-12-31] MEDS ORDERED: EXELON9.5T TOP (09:01)
[2016-12-31] MEDS ORDERED: ARICEPT5 PEG (09:01)
[2016-12-31] MEDS ORDERED: BROVANA15 MCG INH (09:02)
[2016-12-31] MEDS ORDERED: X5 PEG (09:02)
[2016-12-31] MEDS ORDERED: HUMALOGPEN SC (09:02)
[2016-12-31] MEDS ORDERED: XANAX1 MG PEG (09:02)
[2016-12-31] MEDS ORDERED: CLEOCIN300 MG PO (09:03)
[2016-12-31] MEDS ORDERED: DUONEB INH (09:03)
[2016-12-31] MEDS ORDERED: OCEAN NAS (09:03)
== END 2016-06-15 18:59 | DRG 870 ==
LOC: ER 21:41 → ER/OF 05-26 02:27 → CCU 05-26 06:30 → 1SO 06-11 12:14
PROVIDERS: Emergency Medicine; Hospitalist; Internal Medicine; Internal Medicine Critical Care Medicine; Internal Medicine Pulmonary Disease
PROC: 0BH17EZ Insertion of Endotracheal Airway into Trachea, Via Natural or Artificial Opening (ICD-10-PCS; principal; 2016-05-26)
PROC: 5A1935Z Respiratory Ventilation, Less than 24 Consecutive Hours (ICD-10-PCS; 2016-05-26)
PROC: 02HV33Z Insertion of Infusion Device into Superior Vena Cava, Percutaneous Approach (ICD-10-PCS; 2016-05-26)
PROC: 4A02X4A Measurement of Cardiac Electrical Activity, Guidance, External Approach (ICD-10-PCS; 2016-05-26)
PROC: 3E0G76Z Introduction of Nutritional Substance into Upper GI, Via Natural or Artificial Opening (ICD-10-PCS; 2016-05-28)
PROC: 5A1955Z Respiratory Ventilation, Greater than 96 Consecutive Hours (ICD-10-PCS; 2016-05-30)
PROC: 0BH17EZ Insertion of Endotracheal Airway into Trachea, Via Natural or Artificial Opening (ICD-10-PCS; 2016-05-30)
DX: A41.9 Sepsis, unspecified organism (principal); J69.0 Pneumonitis due to inhalation of food and vomit; R65.21 Severe sepsis with septic shock; N17.9 Acute kidney failure, unspecified; G93.40 Encephalopathy, unspecified; J96.02 Acute respiratory failure with hypercapnia; J96.01 Acute respiratory failure with hypoxia; E87.0 Hyperosmolality and hypernatremia; I82.621 Acute embolism and thrombosis of deep veins of right upper extremity; I50.22 Chronic systolic (congestive) heart failure; I13.0 Hypertensive heart and chronic kidney disease with heart failure and stage 1 through stage 4 chronic kidney disease, or unspecified chronic kidney disease; E87.1 Hypo-osmolality and hyponatremia; E44.0 Moderate protein-calorie malnutrition; I48.92 Unspecified atrial flutter; Z66 Do not resuscitate; Z51.5 Encounter for palliative care; R13.10 Dysphagia, unspecified; I48.0 Paroxysmal atrial fibrillation; E11.22 Type 2 diabetes mellitus with diabetic chronic kidney disease; E11.65 Type 2 diabetes mellitus with hyperglycemia; G30.9 Alzheimer's disease, unspecified; F02.80 Dementia in other diseases classified elsewhere, unspecified severity, without behavioral disturbance, psychotic disturbance, mood disturbance, and anxiety; I25.10 Atherosclerotic heart disease of native coronary artery without angina pectoris; J44.9 Chronic obstructive pulmonary disease, unspecified; D63.8 Anemia in other chronic diseases classified elsewhere; N40.0 Benign prostatic hyperplasia without lower urinary tract symptoms; E03.9 Hypothyroidism, unspecified; Z68.28 Body mass index [BMI] 28.0-28.9, adult; I35.0 Nonrheumatic aortic (valve) stenosis; F32.9 Major depressive disorder, single episode, unspecified; E78.5 Hyperlipidemia, unspecified; G20 Parkinson's disease; N18.9 Chronic kidney disease, unspecified; Z95.1 Presence of aortocoronary bypass graft; Z93.1 Gastrostomy status; Z85.46 Personal history of malignant neoplasm of prostate; Z86.14 Personal history of Methicillin resistant Staphylococcus aureus infection; Z86.73 Personal history of transient ischemic attack (TIA), and cerebral infarction without residual deficits; Z79.01 Long term (current) use of anticoagulants; Z79.84 Long term (current) use of oral hypoglycemic drugs; Z79.899 Other long term (current) drug therapy; Z88.0 Allergy status to penicillin; Z91.013 Allergy to seafood; Z88.8 Allergy status to other drugs, medicaments and biological substances
CPT/HCPCS: 31500; 31720; 36600; 71010; 74176; 76775; 80048; 80053; 80069; 80202; 81001; 82043; 82140; 82330; 82570; 82803; 82805; 82947; 82962; 83605; 83735; 83880; 83935; 84100; 84132; 84133; 84134; 84145; 84295; 84300; 84443; 84484; 85014; 85025; 85610; 85730; 87040; 87070; 87205; 87449; 87493; 87493-59; 87641; 87804; 93005; 93970; 93975; 94002; 94003; 94640; 94660; 94668; 94770; 96374; 96523; 97110-GO; 97110-GP; 97162-GP; 97166-GO; 97530-GP; 99291; A9270-GY; C1894; G0463; J0282; J0330; J0692; J1120; J1160; J1956; J2405; J2997; J3010; J3370

== ENCOUNTER 2016-07-10 18:35 | Inpatient (IN) | payer BC ==
--- NOTE | ~2016-07-10 | DS ---
Discharge Summary [place] [address] [place]. [address] NAME: GILBERTO DURAND SR, MD : 33 STATUS : DIS IN PAT#: [id number] AGE: 80 ADM/REG DATE : 07/10/16 MR#: [id number] REPORT SERV DATE: 07/19/16 DICTATED BY: JARRED GUZMAN DATE: 07/18/16 REPORT STATUS : Draft TRANSCRIBED BY: MODL DATE: 07/18/16 ADMISSION DATE: 07/10/2016 DISCHARGE DATE: 07/18/2016 DISCHARGE DIAGNOSES: 1. Healthcare-associated pneumonia and recurrent aspiration pneumonia with sepsis. 2. Acute hypoxic respiratory failure. 3. Hypernatremia. 4. Azotemia. 5. Severe oropharyngeal dysphagia, status post PEG. 6. Insulin-dependent diabetes, type 2. 7. Acute on chronic diastolic congestive heart failure. 8. Paroxysmal atrial fibrillation, on Xarelto. 9. Chronic anemia. 10.Iron-deficiency anemia. 11.Previous cerebrovascular accident. 12.Parkinson's. 13.Dementia. 14.Depression. 15.Coronary artery disease. 16.Moderate aortic stenosis, not a candidate for intervention from previous cardiology evaluation. CONSULTS: None. PROCEDURES: None. HOSPITAL COURSE: This is an 80-year-old gentleman, who was admitted to the hospital with pneumonia with acute hypoxic respiratory failure and sepsis. For details, please refer to H and P dictated by Dr. Alvarez. Also, please refer to interim discharge summary dictated by Dr. Keith Johnson. I assumed care of this patient on 07/17 and by then, the patient was actually medically ready and stable for discharge to rehab. There was nothing more to add to interim discharge summary dictated by Dr. Johnson. DISCHARGE MEDICATIONS: 1. Humalog per sliding scale. 2. Levemir 5 units subcu b.i.d. 3. Xarelto 20 mg p.o. q.h.s. 4. DuoNeb four times daily. 5. Synthroid 75 mcg p.o. daily. 6. Amiodarone 100 mg p.o. q.a.m. 7. Sinemet 25/100 half a tab p.o. t.i.d. 8. Cyclosporine ophthalmic solution to both eyes twice daily. 9. Namenda 5 mg p.o. b.i.d. 10.Potassium chloride 20 mEq p.o. b.i.d. 11.Probiotics 250 mg p.o. q.a.m. Discharge Summary [place] [address] [place]. [address] NAME: TEODOROEMILIEGILBERTO SR, MD : 33 STATUS : DIS IN PAT#: [id number] AGE: 80 ADM/REG DATE : 07/10/16 MR#: [id number] REPORT SERV DATE: 07/19/16 DICTATED BY: JARRED GUZMAN DATE: 07/18/16 REPORT STATUS : Draft TRANSCRIBED BY: JEMMA DATE: 07/18/16 12.Dulera five puffs inhaled twice daily. 13.Exelon patch 9.5 mg topically q.a.m. 14.Crestor 10 mg p.o. q.h.s. 15.Effexor 75 mg p.o. b.i.d. 16.Lopressor 25 mg p.o. b.i.d. 17.Albuterol nebulizer q.4 p.r.n. 18.Zofran. 19.Tylenol. 20.DuoNeb as needed. DISPOSITION: To group home facility. FOLLOWUP: Please follow up with PCP in the next one to two weeks. A total of 40 minutes spent in coordinating this patient's discharge today. ROGELIO/JEMMA Jarred Guzman MD / [id number] CC: MD Trevor Cotto M.D.
--- NOTE | ~2016-07-10 | HP ---
History And Physical [place] [id number] [place]. [address] NAME: GILBERTO PIERRE : 33 STATUS : ADM IN [facility]#: [id number] AGE: 80 ADM/REG DATE : 07/10/16 MR#: [id number] REPORT SERV DATE: 07/10/16 DICTATED BY: LUCIEN SANDERS DATE: 07/10/16 REPORT STATUS : Draft TRANSCRIBED BY: MODL DATE: 07/10/16 DATE OF ADMISSION: 07/10/2016 CHIEF COMPLAINT: Shortness of breath and pneumonia. HISTORY OF PRESENT ILLNESS: This is an 80-year-old male, a resident at [place], [place], who has a history of chronic hypoxic respiratory failure, on 2 L of oxygen continuously, has a history of coronary artery disease with CABG done in 2008 with nonischemic cardiomyopathy and chronic systolic congestive heart failure with an ejection fraction of 40%. He presents to the emergency room at [facility] after he had an x-ray done in response to cough, shortness of breath, and hypoxemia at the retirement, which apparently showed bilateral pneumonia, and the patient was transferred here. History was obtained from the patient, but more so from his , who is at bedside, speaking with the ER physician, and reviewing data, which accompanied the patient from the facility and reviewing [facility] as well. According to available data, Mr. Pierre was in his usual state of health at the retirement when about two days ago, he started having shortness of breath, increasing hypoxia, and cough. His states he was not coughing up anything particular, but just could not get anything out. Finally, she insisted on them taking a chest x-ray, which was done and showed pneumonia, and patient was brought here. In the emergency room, he had bilateral pulmonary infiltrates along with a BNP of 1236.2. Hospitalist Service is asked to admit him for further evaluation and treatment. At the time of my evaluation, he denied any chest pain or palpitations. He did have orthopnea, one to two pillows. He had a cough, which was essentially nonproductive, not associated with any hemoptysis, night sweats, or weight loss. He has had no recent falls or loss of consciousness. No history of fevers or chills at home. No history of nausea, vomiting, diarrhea. His denied him having hematemesis, hematochezia, or hematuria while in the facility. No other history of recent travel or exposures other than those mentioned above. PAST MEDICAL HISTORY: Significant for history of Parkinson's disease, diabetes mellitus with hyperglycemia, atrial fibrillation, coronary artery disease with CABG done in 2008, history of hypoxic respiratory failure on 2 L of oxygen continuously, history of hypothyroidism, and chronic systolic congestive heart failure with an EF of 40%. SOCIAL HISTORY: He does not smoke, drink, or use recreational drugs. He is a retired general surgeon, who used to work at [employer]. FAMILY HISTORY: Noncontributory. MEDICATIONS: At home were reviewed by me in the chart today and reordered by me. REVIEW OF SYSTEMS: History And Physical [address] [address] NAME: GILBERTO PIERRE : 33 STATUS : ADM IN [facility]#: [id number] AGE: 80 ADM/REG DATE : 07/10/16 MR#: [id number] REPORT SERV DATE: 07/10/16 DICTATED BY: LUCIEN SANDERS DATE: 07/10/16 REPORT STATUS : Draft TRANSCRIBED BY: JEMMA DATE: 07/10/16 As in history of present illness. All other systems were reviewed in detail and are quite unremarkable. PHYSICAL EXAMINATION: GENERAL: This is a pleasant 80-year-old, not in any acute distress. HEENT: His head is atraumatic, normocephalic. He is quite alert, awake, and oriented. His pupils are equal, reacting to light and accommodating. External ocular muscles are intact. Membranes are moist and pink. Sclerae are nonicteric. NECK: Supple with no jugular venous distention, lymphadenopathy, or thyromegaly. LUNGS: Auscultation of his lungs revealed bilateral coarse breath sounds with bilateral crackles. There were no expiratory wheezes or rales. HEART: Heart sounds were regular. There were no murmurs, rubs, or gallops appreciated. ABDOMEN: Soft, nontender. Bowel sounds are present. There was no organomegaly. EXTREMITIES: Showed dependent edema especially in the upper extremities and back. Lower extremities, there was very little edema. There was no cyanosis or clubbing. NEUROLOGIC: Grossly intact. No focal deficits. Higher functions appeared intact. VITAL SIGNS: Today showed a temperature of 101.7 degrees Fahrenheit, pulse was 103, respirations were 26 a minute, blood pressure was 179/81 upon arrival, oxygen saturations were 86% on room air when he arrived. LABORATORY DATA: Reviewed on the [employer] system today showed a pH of 7.51 on arterial blood gas, pCO2 was 28, PO2 was 112, and bicarb was 21.7. This was on 40%. His CMP was grossly normal. Blood glucose was 196 today. Alkaline phosphatase, ALT, and AST were within normal limits. Lipase was 145. His troponin was 0.08 today. His last one done on 05/31/2016 was 0.02. [place] a [place] [address], hemoglobin was 10.2, hematocrit 33.3, and platelet count was 338,000. His BNP today was 1236.2. Urinalysis was not performed today. Films of the chest x-ray were reviewed by me on the PACS today and interpreted by me. Today's films were compared to prior films available on the PACS as well. Compared to prior films, there appears to be increasing bilateral patchy density consistent with congestive heart failure with small bilateral pleural effusions as well. A 12-lead EKG done in the emergency room was reviewed and interpreted by me. There is sinus tachycardia with a rate of 102. There were no ST-T changes. IMPRESSION: 1. Shortness of breath. 2. Acute on chronic systolic congestive heart failure. 3. Volume overload. 4. Sepsis by criteria. 5. Elevated troponin. 6. Diabetes mellitus with hyperglycemia. 7. Parkinson's disease. 8. Respiratory alkalosis. 9. Atrial fibrillation, currently in sinus tachycardia. 10.Coronary artery disease with CABG in 2008. 11.Chronic hypoxic respiratory failure. 12.Hypothyroidism. History And Physical [address] [address] NAME: GILBERTO PIERRE : 33 STATUS : ADM [facility]#: [id number] AGE: 80 ADM/REG DATE : 07/10/16 MR#: [id number] REPORT SERV DATE: 07/10/16 DICTATED BY: LUCIEN SANDERS DATE: 07/10/16 REPORT STATUS : Draft TRANSCRIBED BY: MODL DATE: 07/10/16 PLAN: We will admit Mr. Pierre to the Hospitalist Service to telemetry for close monitoring. We will start him on intravenous diuretics for 24 hours, monitor his outputs and daily weights, and get an echocardiogram as well. We will follow serial troponins to rule out acute coronary syndrome. Meanwhile, start him on bronchodilator treatments, continue supplemental oxygen therapy, and start him on intravenous steroids as well. We will certainly obtain cultures and start him on empiric IV antibiotics for healthcare- associated pneumonia, as he is a resident at a retirement. We will also get Gram stain cultures and adjust antibiotics accordingly. I do believe at this time, it is more of volume overload and congestive heart failure rather than the pneumonia, but given his presentation from the retirement, we will cover him. Meanwhile, we will go ahead and put him on NovoLog insulin per sliding scale for his blood sugar control, check his A1c as well. We will also check his TSH and continue replacement therapy for his hypothyroidism. He is on sinus tach today, but we will keep him on monitor and continue his Xarelto as well. We will continue all his other home medications while he is here. He is on a PEG tube feeding only due to history of aspirations. We will start him on Glucerna 1.2 at 65 mL an hour and go from there. I have explained all this to the patient and his . Questions were answered and they are agreeable to the above recommendations. Please see today's orders and reports for all the details. Hospitalist Service will be following him during his stay here. MR/MODL Lucien Sanders M.D. / [id number] CC: Keith Johnson M.D. Gilberto Nation M.D.
--- NOTE | ~2016-07-10 | IDS ---
Interim Discharge Summary [place] [address] [facility] [place] [address] NAME: GILBERTO DURAND : 33 STATUS : ADM IN PAT#: [id number] AGE: 80 ADM/REG DATE : 07/10/16 MR#: [id number] REPORT SERV DATE: 07/17/16 DICTATED BY: VIOLETTA JOHNSON DATE: 07/16/16 REPORT STATUS : Draft TRANSCRIBED BY: MODL DATE: 07/16/16 ADMISSION DATE: 07/10/2016 DISCHARGE DATE: DATE OF INTERIM SUMMARY: 07/16/2016 CURRENT DIAGNOSES: 1. Sepsis, present on admission. 2. Acute hypoxemic respiratory failure. 3. Healthcare-associated pneumonia. 4. Recurrent aspiration pneumonia. 5. Hypernatremia, improving. 6. Azotemia, improving. 7. Severe oropharyngeal dysphagia, status post PEG on enteral nutrition. 8. Diabetes, on insulin therapy, improved, controlled during hospitalization. 9. Acute on chronic diastolic heart failure. 10.Paroxysmal atrial fibrillation, on Xarelto. 11.Chronic anemia. 12.Iron deficiency, documented in May 2016. 13.Previous stroke. 14.Parkinson disease. 15.Dementia. 16.Depression. 17.Coronary artery disease, post coronary artery bypass graft. 18.Positive troponin with presentation. 19.History of prostate cancer. 20.Moderate aortic stenosis, not transcatheter aortic valve replacement or surgery candidate per previous cardiology evaluation. 21.History of hyperthyroidism, treated with radioactive iodine and subsequent hypothyroid on replacement. 22.Hyperlipidemia. 23.Wounds, present on admission. 24.Back dermatitis. OPERATIONS AND PROCEDURES: None. PRESENT ILLNESS: This is an 80-year-old white male, who was triaged in the emergency room on 07/10/2016 at 1634 hours, brought from a facility with increasing respiratory distress and suspected pneumonia. He was referred to the Hospitalist Service. He was seen by Dr. Lucien Alvarez and admitted as described on admission history and physical examination. Significant history was that he had been here 03/10/2016 to 03/16/2016 with aspiration pneumonia. He had been here from 05/05/2016 to 05/07/2016 with possible seizures. Interim Discharge Summary [place] [address] [facility] [place]. [address] NAME: GILBERTO DURAND : 33 STATUS : ADM IN PAT#: [id number] AGE: 80 ADM/REG DATE : 07/10/16 MR#: [id number] REPORT SERV DATE: 07/17/16 DICTATED BY: VIOLETTA JOHNSON DATE: 07/16/16 REPORT STATUS : Draft TRANSCRIBED BY: MODClifford DATE: 07/16/16 He was last here 05/16/2016 to 06/15/2016 with acute hypoxemic hypercapnic respiratory failure with recurrent aspiration pneumonia and septic shock requiring vasopressor support. He was sent to [facility] for rehab and presented as described. ADDITIONAL HISTORY: Per Dr. Alvarez. PHYSICAL EXAMINATION: Per Dr. Alvarez. ADMISSION LABORATORY: Per Dr. Alvarez. HOSPITAL COURSE: He was admitted by Dr. Alvarez with: 1. Sepsis. 2. Acute hypoxemic respiratory failure. 3. Healthcare-associated pneumonia. 4. Recurrent aspiration pneumonia. 5. Acute on chronic diastolic heart failure, all in the setting of the above-mentioned comorbidities. He was admitted to [address] [place] [address]. He was started on bronchodilators, additional O2, IV steroids, broad-spectrum antimicrobial therapy for healthcare-associated pneumonia, and IV diuretics. His hospitalist care was assumed by the undersigned. On admission, a procalcitonin level was 0.29 and is 0.12 today. A C-reactive protein level was 35.4 on the 07/11/2016, 19.9 on the 07/12/2016, and 29.5 on the 07/15/2016. His white blood cell count was 11.2 on admission, subsequently 16.4 on the 07/12/2016 with corticosteroids 10.2 today. Blood cultures drawn on admission were negative except for diphtheroid like organisms in one tube thought to be contaminant. A chest x-ray done on the 07/10/2016 showed bibasilar atelectatic changes and pleural effusions with a followup film on the 07/14/2016, to my view possibly improved. A BNP on the 07/10/2016 was 1236, increasing to 2705 on the 07/11/2016 and is 493.4 today. Clinically, he has less cough, a lower O2 requirement (100% sat on FiO2 of 28% today) and fewer rales, rhonchi, and wheezes on exam. He is more alert and conversant with answers to simple questions. His enteral feedings have been continued. He is tolerating this well. He did develop some hypernatremia with his initial treatment, sodium rising to 153. With additional free water, his PEG, sodium today 144 and 143. I spoke with his at bedside daily. On 07/11/2016, his resuscitation status was DNR limited, no compression, no intubation or mechanical ventilation. This was changed on Interim Discharge Summary [place] [address] [place]. [address] NAME: GILBERTO DURAND : 33 STATUS : ADM IN [facility]#: [id number] AGE: 80 ADM/REG DATE : 07/10/16 MR#: [id number] REPORT SERV DATE: 07/17/16 DICTATED BY: VIOLETTA JOHNSON DATE: 07/16/16 REPORT STATUS : Draft TRANSCRIBED BY: JEMMA DATE: 07/16/16 07/13/2016 to intubation and mechanical ventilation not to be provided only. Current plan is to complete seven days of antimicrobial therapy today with possible SNF transition tomorrow for PT/OT, Speech Therapy, and continuation of his current therapy. Hospitalist care will be assumed by [place] [address] team on 07/17/2016. DD/JEMMA Violetta Johnson M.D. / [id number] CC: Cleveland Darling M.D.
[2016-07-10 17:05] LABS: BASOPHILS 0.1 %; BASOPHILS ABSOLUTE 0.01 10/3/uL (0.0-0.16); EOSINOPHILS 0 %; ER CBC TAT 0 Hrs 14 Mins; HEMATOCRIT 33.3 % (40.0-51.0); HEMOGLOBIN 10.2 g/dL (13.6-17.8); IMMATURE GRANULOCYTES ABSOLUTE 0.22 10/3/uL (0.0-0.11); LYMPHOCYTES 1.9 %; LYMPHOCYTES ABSOLUTE 0.21 10/3/uL (0.67-4.30); MANUAL DIFF NO %; MEAN CORPUS HGB CONC 30.6 g/dL (32.0-36.0); MEAN CORPUSCULAR HEMOGLOB 29.5 pg (26.0-34.0); MEAN CORPUSCULAR VOLUME 96.2 fL (80-100); MEAN PLATELET VOLUME 10.3 fL (9.2-13.0); MONOCYTES ABSOLUTE 0.11 10/3/uL (0.21-1.20); NEUTROPHILS ABSOLUTE 10.69 10/3/uL (2.02-8.40); NUCLEATED RED BLOOD CELLS 0.5 /100WBC (0-0); PLATELET COUNT 338 10/3/uL (150-400); RBC DISTRIBUTION WIDTH 18.4 % (12.0-16.0); RED CELL COUNT 3.46 10/6/uL (4.7-6.1); WHITE BLOOD CELLS 11.2 10/3/uL (4.5-10.5)
[2016-07-10 17:13] LABS: ALKALINE PHOSPHATASE 53 U/L (45-117); BUN (BLOOD UREA NITROGEN) 27 MG/DL (6-23); CALCIUM, SERUM 8.7 MG/DL (8.5-10.4); CHLORIDE, SERUM 110 MMOL/L (96-112); CO2 (CARBON DIOXIDE) 27 MMOL/L (24-34); CREATININE 0.79 MG/DL (0.70-1.30); GFR AFRICAN AMERICAN 97 ML/MIN (>=60); GFR NON AFRICAN AMERICAN 84 ML/MIN (>=60); INTERNATIONAL NORMAL RATI 1.4 UNITS (-); POTASSIUM, SERUM 4.8 MMOL/L (3.5-5.3); PROTIME (NOT ORD) 16.9 SEC (12.0-14.5); SGOT(AST) 23 U/L (5-40); SGPT(ALT) 36 U/L (5-65); TOTAL BILIRUBIN 0.4 MG/DL (0-1.2)
[2016-07-10 17:14] LABS: LACTATE 1.7 MMOL/L (0.3-2.4)
[2016-07-10 17:15] LABS: A/G RATIO 0.6 (0.7-1.9); ALBUMIN 2.7 G/DL (3.5-5.0); GLOBULIN 4.2 G/DL (2.5-4.1); GLUCOSE, SERUM 196 MG/DL (60-99); SODIUM, SERUM 146 MMOL/L (135-148); TOTAL PROTEIN 6.9 G/DL (6.0-8.5)
[2016-07-10 17:22] LABS: ANISOCYTOSIS 1+ (5-10/OIF) (0-5/OIF); BAND NEUTROPHILS 2 %; BASOPHILS 1 %; BASOPHILS ABSOLUTE (CALC) 0.11 10/3/uL (0.0-0.16); ER DIFF TAT 0 Hrs 31 Mins; IMMATURE GRANS ABSOLUTE (CALC) 0.11 10/3/uL (0.0-0.11); LYMPHOCYTES 2 %; LYMPHOCYTES ABSOLUTE (CALC) 0.22 10/3/uL (0.67-4.30); METAMYELOCYTES 1 %; MONOCYTES 2 %; MONOCYTES ABSOLUTE (CALC) 0.22 10/3/uL (0.21-1.20); NEUTROPHILS ABSOLUTE (CALC) 10.53 10/3/uL (2.02-8.40); PLATELET ESTIMATE ADQ (ADEQUATE); SEGMENTED NEUTROPHIL (0) 92 %; TOTAL NUCLEATED CELLS 100
[~2016-07-10 18:35] MED LIST changes: +ALBUTEROL0.083 % INH; +ATROVENTUD INH; +FLORASTOR250 MG PEG; +LEVOTHYROXIN75 MCG PEG; +MONODOX100 MG PEG; +MULTIVIT/MIN PEG; +NAMENDA PEG; +REFRESH OPH; +[UNRECOGNIZED DRUG - OTHER] TOP
[2016-07-10 18:54] LABS: INFLUENZA A SCREEN NEGATIVE (NEGATIVE); INFLUENZA B SCREEN NEGATIVE (NEGATIVE)
[2016-07-10 19:13] LABS: ALLENS TEST Pos; BE (BASE EXCESS) -0.5 MEQ/L (0 +/- 2.5); CARBOXYHEMOGLOBIN 0.9 % (0-3); DEVICE NC; HCO3 (ACTUAL BICARBONATE) 21.7 MEQ/L (23-27); HEMOBLOGIN CONTENT 10.8 G/DL (14-18); INSTRUMENT SERIAL # 8087; METHEMOGLOBIN 0.2 % (0-3); O2 CONTENT 14.9 VOL% (18-24); OPERATOR ID 35091; PCO2 (CO2 TENSION) 28 MMHG (35-45); PO2 (O2 TENSION) 112 MMHG (79-93); SAMPLE Arterial; pH 7.51 (7.37-7.43)
[2016-07-10 20:25] LABS: TROPONIN I 0.08 NG/ML (<0.05)
[2016-07-10] MEDS ORDERED: XARELTO20 MG PO (20:45)
[2016-07-10] MEDS ORDERED: LEVEMIR SC (20:45)
[2016-07-10] MEDS ORDERED: HUMALOG SC (20:45)
[2016-07-10] MEDS ORDERED: LEVAQUIN750 MG PO (20:46)
[2016-07-10] MEDS ORDERED: DUONEB INH ×2 (20:47→20:55)
[2016-07-10] MEDS ORDERED: PACERONE100 MG PO (20:48)
[2016-07-10] MEDS ORDERED: SYN075 PO (20:48)
[2016-07-10] MEDS ORDERED: SIN25 PO (20:48)
[2016-07-10] MEDS ORDERED: KCL20UDL PO (20:49)
[2016-07-10] MEDS ORDERED: RESTASIS OPH (20:49)
[2016-07-10] MEDS ORDERED: NAMENDA5 PO (20:49)
[2016-07-10] MEDS ORDERED: PROBIOTIC PO (20:49)
[2016-07-10] MEDS ORDERED: EXELON9.5T TOP (20:50)
[2016-07-10] MEDS ORDERED: DULERA 200 MCG/13 GM INH (20:50)
[2016-07-10] MEDS ORDERED: CRESTOR10 PO (20:50)
[2016-07-10] MEDS ORDERED: EFFEXXR75 PO (20:51)
[2016-07-10] MEDS ORDERED: LOP25 PO (20:52)
[2016-07-10] MEDS ORDERED: SOLU MEDROL IM (20:53)
[2016-07-10] MEDS ORDERED: ZOFRAN ODT4 MG PO (20:54)
[2016-07-10] MEDS ORDERED: ALBUTEROL0.083 % INH (20:54)
[2016-07-10] MEDS ORDERED: T PO (20:54)
[2016-07-10 21:39] LABS: PROCALCITONIN 0.29 ng/mL (<0.5)
[2016-07-11 01:10] LABS: LACTATE 1.7 MMOL/L (0.3-2.4)
[2016-07-11 06:16] LABS: HEMATOCRIT 30.1 % (40.0-51.0); HEMOGLOBIN 9.2 g/dL (13.6-17.8); MANUAL DIFF YES %; MEAN CORPUS HGB CONC 30.6 g/dL (32.0-36.0); MEAN CORPUSCULAR HEMOGLOB 29.4 pg (26.0-34.0); MEAN CORPUSCULAR VOLUME 96.2 fL (80-100); MEAN PLATELET VOLUME 10.1 fL (9.2-13.0); PLATELET COUNT 308 10/3/uL (150-400); RBC DISTRIBUTION WIDTH 18.5 % (12.0-16.0); RED CELL COUNT 3.13 10/6/uL (4.7-6.1); WHITE BLOOD CELLS 9.5 10/3/uL (4.5-10.5)
[2016-07-11 06:36] LABS: BUN (BLOOD UREA NITROGEN) 29 MG/DL (6-23); CALCIUM, SERUM 8.2 MG/DL (8.5-10.4); CHLORIDE, SERUM 112 MMOL/L (96-112); CO2 (CARBON DIOXIDE) 26 MMOL/L (24-34); GFR AFRICAN AMERICAN 92 ML/MIN (>=60); GFR NON AFRICAN AMERICAN 79 ML/MIN (>=60); PHOSPHORUS, SERUM 3.6 MG/DL (2.5-4.5); SODIUM, SERUM 149 MMOL/L (135-148)
[2016-07-11 06:37] LABS: GLUCOSE, SERUM 270 MG/DL (60-99); POTASSIUM, SERUM 3.8 MMOL/L (3.5-5.3); ULTRASENSITIVE TSH 0.507 MCIU/ML (0.358-3.740)
[2016-07-11 06:51] LABS: ANISOCYTOSIS 1+ (5-10/OIF) (0-5/OIF); BAND NEUTROPHILS 3 %; LYMPHOCYTES 1 %; MONOCYTES 1 %; NEUTROPHILS ABSOLUTE (CALC) 9.31 10/3/uL (2.02-8.40); PLATELET ESTIMATE ADQ (ADEQUATE); SEGMENTED NEUTROPHIL (0) 95 %; TOTAL NUCLEATED CELLS 100
[2016-07-11 06:52] LABS: POLYCHROMASIA 1+ (2-5/OIF) (0-1/OIF); TOXIC GRANULATION 1+
[2016-07-11 10:04] LABS: C-REACTIVE PROTEIN 35.4 MG/L (<8.0)
[2016-07-12 06:32] LABS: HEMATOCRIT 31.9 % (40.0-51.0); HEMOGLOBIN 9.8 g/dL (13.6-17.8); MEAN CORPUS HGB CONC 30.7 g/dL (32.0-36.0); MEAN CORPUSCULAR HEMOGLOB 29.5 pg (26.0-34.0); MEAN CORPUSCULAR VOLUME 96.1 fL (80-100); MEAN PLATELET VOLUME 10.2 fL (9.2-13.0); PLATELET COUNT 330 10/3/uL (150-400); RBC DISTRIBUTION WIDTH 18.6 % (12.0-16.0); RED CELL COUNT 3.32 10/6/uL (4.7-6.1)
[2016-07-12 06:40] LABS: C-REACTIVE PROTEIN 19.9 MG/L (<8.0); CALCIUM, SERUM 8.6 MG/DL (8.5-10.4); CHLORIDE, SERUM 112 MMOL/L (96-112); CREATININE 1.02 MG/DL (0.70-1.30); GFR AFRICAN AMERICAN 79 ML/MIN (>=60); GFR NON AFRICAN AMERICAN 68 ML/MIN (>=60); SODIUM, SERUM 150 MMOL/L (135-148)
[2016-07-12 06:41] LABS: BUN (BLOOD UREA NITROGEN) 35 MG/DL (6-23); CO2 (CARBON DIOXIDE) 31 MMOL/L (24-34); GLUCOSE, SERUM 182 MG/DL (60-99)
[2016-07-12 06:45] LABS: MANUAL DIFF YES %; WHITE BLOOD CELLS 16.4 10/3/uL (4.5-10.5)
[2016-07-12 07:16] LABS: ANISOCYTOSIS 1+ (5-10/OIF) (0-5/OIF); BAND NEUTROPHILS 2 %; IMMATURE GRANS ABSOLUTE (CALC) 0.33 10/3/uL (0.0-0.11); LYMPHOCYTES 10 %; LYMPHOCYTES ABSOLUTE (CALC) 1.64 10/3/uL (0.67-4.30); METAMYELOCYTES 2 %; MONOCYTES 4 %; MONOCYTES ABSOLUTE (CALC) 0.66 10/3/uL (0.21-1.20); NEUTROPHILS ABSOLUTE (CALC) 13.78 10/3/uL (2.02-8.40); PLATELET ESTIMATE ADQ (ADEQUATE); SEGMENTED NEUTROPHIL (0) 82 %; TOTAL NUCLEATED CELLS 100
[2016-07-13 06:57] LABS: HEMATOCRIT 32.2 % (40.0-51.0); HEMOGLOBIN 9.8 g/dL (13.6-17.8); MEAN CORPUS HGB CONC 30.4 g/dL (32.0-36.0); MEAN CORPUSCULAR HEMOGLOB 29.7 pg (26.0-34.0); MEAN CORPUSCULAR VOLUME 97.6 fL (80-100); MEAN PLATELET VOLUME 10.2 fL (9.2-13.0); PLATELET COUNT 317 10/3/uL (150-400); RBC DISTRIBUTION WIDTH 18.5 % (12.0-16.0); WHITE BLOOD CELLS 15.3 10/3/uL (4.5-10.5)
[2016-07-13 07:06] LABS: MANUAL DIFF YES %
[2016-07-13 07:15] LABS: BUN (BLOOD UREA NITROGEN) 33 MG/DL (6-23); CALCIUM, SERUM 8.9 MG/DL (8.5-10.4); CHLORIDE, SERUM 115 MMOL/L (96-112); CO2 (CARBON DIOXIDE) 27 MMOL/L (24-34); GFR AFRICAN AMERICAN 92 ML/MIN (>=60); GFR NON AFRICAN AMERICAN 79 ML/MIN (>=60); GLUCOSE, SERUM 154 MG/DL (60-99); POTASSIUM, SERUM 4.6 MMOL/L (3.5-5.3); SODIUM, SERUM 150 MMOL/L (135-148)
[2016-07-13 07:17] LABS: TROPONIN I 0.13 NG/ML (<0.05)
[2016-07-13 07:44] LABS: ANISOCYTOSIS 1+ (5-10/OIF) (0-5/OIF); BAND NEUTROPHILS 2 %; LYMPHOCYTES 4 %; LYMPHOCYTES ABSOLUTE (CALC) 0.61 10/3/uL (0.67-4.30); MONOCYTES 4 %; MONOCYTES ABSOLUTE (CALC) 0.61 10/3/uL (0.21-1.20); NEUTROPHILS ABSOLUTE (CALC) 14.08 10/3/uL (2.02-8.40); PLATELET ESTIMATE ADQ (ADEQUATE); SEGMENTED NEUTROPHIL (0) 90 %; TOTAL NUCLEATED CELLS 100
[2016-07-14 06:05] LABS: HEMATOCRIT 32.8 % (40.0-51.0); HEMOGLOBIN 9.8 g/dL (13.6-17.8); MEAN CORPUS HGB CONC 29.9 g/dL (32.0-36.0); MEAN CORPUSCULAR HEMOGLOB 29.4 pg (26.0-34.0); MEAN CORPUSCULAR VOLUME 98.5 fL (80-100); MEAN PLATELET VOLUME 10.2 fL (9.2-13.0); PLATELET COUNT 312 10/3/uL (150-400); RBC DISTRIBUTION WIDTH 18.4 % (12.0-16.0); RED CELL COUNT 3.33 10/6/uL (4.7-6.1); WHITE BLOOD CELLS 12.7 10/3/uL (4.5-10.5)
[2016-07-14 06:09] LABS: MANUAL DIFF YES %
[2016-07-14 06:18] LABS: BUN (BLOOD UREA NITROGEN) 26 MG/DL (6-23); CALCIUM, SERUM 8.8 MG/DL (8.5-10.4); CHLORIDE, SERUM 114 MMOL/L (96-112); CO2 (CARBON DIOXIDE) 28 MMOL/L (24-34); CREATININE 0.68 MG/DL (0.70-1.30); GFR AFRICAN AMERICAN 103 ML/MIN (>=60); GFR NON AFRICAN AMERICAN 89 ML/MIN (>=60); GLUCOSE, SERUM 141 MG/DL (60-99); POTASSIUM, SERUM 4.1 MMOL/L (3.5-5.3); SODIUM, SERUM 151 MMOL/L (135-148)
[2016-07-14 06:48] LABS: ANISOCYTOSIS 1+ (5-10/OIF) (0-5/OIF); LYMPHOCYTES 8 %; LYMPHOCYTES ABSOLUTE (CALC) 1.02 10/3/uL (0.67-4.30); MONOCYTES 6 %; MONOCYTES ABSOLUTE (CALC) 0.76 10/3/uL (0.21-1.20); NEUTROPHILS ABSOLUTE (CALC) 10.92 10/3/uL (2.02-8.40); PLATELET ESTIMATE ADQ (ADEQUATE); SEGMENTED NEUTROPHIL (0) 86 %; TOTAL NUCLEATED CELLS 100
[2016-07-15 02:02] LABS: HEMATOCRIT 32.4 % (40.0-51.0); HEMOGLOBIN 9.8 g/dL (13.6-17.8); MEAN CORPUS HGB CONC 30.2 g/dL (32.0-36.0); MEAN CORPUSCULAR HEMOGLOB 29.2 pg (26.0-34.0); MEAN CORPUSCULAR VOLUME 96.4 fL (80-100); MEAN PLATELET VOLUME 9.7 fL (9.2-13.0); PLATELET COUNT 282 10/3/uL (150-400); RED CELL COUNT 3.36 10/6/uL (4.7-6.1); WHITE BLOOD CELLS 9.7 10/3/uL (4.5-10.5)
[2016-07-15 02:05] LABS: MANUAL DIFF YES %
[2016-07-15 02:15] LABS: BUN (BLOOD UREA NITROGEN) 23 MG/DL (6-23); C-REACTIVE PROTEIN 29.5 MG/L (<8.0); CALCIUM, SERUM 8.2 MG/DL (8.5-10.4); CHLORIDE, SERUM 111 MMOL/L (96-112); CO2 (CARBON DIOXIDE) 30 MMOL/L (24-34); CREATININE 0.69 MG/DL (0.70-1.30); GFR AFRICAN AMERICAN 102 ML/MIN (>=60); GFR NON AFRICAN AMERICAN 88 ML/MIN (>=60); GLUCOSE, SERUM 129 MG/DL (60-99); POTASSIUM, SERUM 3.9 MMOL/L (3.5-5.3); SODIUM, SERUM 149 MMOL/L (135-148)
[2016-07-15 02:28] LABS: EOSINOPHILS 1 %; LYMPHOCYTES 10 %; LYMPHOCYTES ABSOLUTE (CALC) 0.97 10/3/uL (0.67-4.30); MONOCYTES 1 %; NEUTROPHILS ABSOLUTE (CALC) 8.54 10/3/uL (2.02-8.40); RBC MORPHOLOGY ABN (NORMAL); SEGMENTED NEUTROPHIL (0) 88 %; TOTAL NUCLEATED CELLS 100
[2016-07-15 17:17] LABS: BUN (BLOOD UREA NITROGEN) 21 MG/DL (6-23); CALCIUM, SERUM 8.3 MG/DL (8.5-10.4); CHLORIDE, SERUM 105 MMOL/L (96-112); CO2 (CARBON DIOXIDE) 30 MMOL/L (24-34); GFR AFRICAN AMERICAN 109 ML/MIN (>=60); GFR NON AFRICAN AMERICAN 94 ML/MIN (>=60); GLUCOSE, SERUM 120 MG/DL (60-99); POTASSIUM, SERUM 3.8 MMOL/L (3.5-5.3); SODIUM, SERUM 143 MMOL/L (135-148)
[2016-07-16 06:23] LABS: HEMOGLOBIN 9.1 g/dL (13.6-17.8); MEAN CORPUS HGB CONC 31.6 g/dL (32.0-36.0); MEAN CORPUSCULAR HEMOGLOB 29.8 pg (26.0-34.0); MEAN CORPUSCULAR VOLUME 94.4 fL (80-100); MEAN PLATELET VOLUME 10.2 fL (9.2-13.0); PLATELET COUNT 280 10/3/uL (150-400); RBC DISTRIBUTION WIDTH 17.7 % (12.0-16.0); RED CELL COUNT 3.05 10/6/uL (4.7-6.1); WHITE BLOOD CELLS 10.2 10/3/uL (4.5-10.5)
[2016-07-16 06:28] LABS: HEMATOCRIT 28.8 % (40.0-51.0); MANUAL DIFF YES %
[2016-07-16 06:31] LABS: BUN (BLOOD UREA NITROGEN) 19 MG/DL (6-23); CALCIUM, SERUM 8.3 MG/DL (8.5-10.4); CHLORIDE, SERUM 106 MMOL/L (96-112); CO2 (CARBON DIOXIDE) 27 MMOL/L (24-34); CREATININE 0.57 MG/DL (0.70-1.30); GFR AFRICAN AMERICAN 111 ML/MIN (>=60); GFR NON AFRICAN AMERICAN 96 ML/MIN (>=60); GLUCOSE, SERUM 108 MG/DL (60-99); POTASSIUM, SERUM 3.5 MMOL/L (3.5-5.3); SODIUM, SERUM 144 MMOL/L (135-148)
[2016-07-16 07:25] LABS: PROCALCITONIN 0.12 ng/mL (<0.5)
[2016-07-16 07:55] LABS: ANISOCYTOSIS 1+ (5-10/OIF) (0-5/OIF); LYMPHOCYTES 1 %; MONOCYTES 3 %; MONOCYTES ABSOLUTE (CALC) 0.31 10/3/uL (0.21-1.20); NEUTROPHILS ABSOLUTE (CALC) 9.79 10/3/uL (2.02-8.40); PLATELET ESTIMATE ADQ (ADEQUATE); SEGMENTED NEUTROPHIL (0) 96 %; TOTAL NUCLEATED CELLS 100
[2016-07-16 16:41] LABS: BUN (BLOOD UREA NITROGEN) 16 MG/DL (6-23); CALCIUM, SERUM 8.5 MG/DL (8.5-10.4); CHLORIDE, SERUM 108 MMOL/L (96-112); CO2 (CARBON DIOXIDE) 27 MMOL/L (24-34); CREATININE 0.55 MG/DL (0.70-1.30); GFR AFRICAN AMERICAN 112 ML/MIN (>=60); GFR NON AFRICAN AMERICAN 97 ML/MIN (>=60); GLUCOSE, SERUM 100 MG/DL (60-99); POTASSIUM, SERUM 3.6 MMOL/L (3.5-5.3); SODIUM, SERUM 143 MMOL/L (135-148)
[2016-07-17 06:09] LABS: HEMATOCRIT 29.6 % (40.0-51.0); HEMOGLOBIN 9.3 g/dL (13.6-17.8); MANUAL DIFF YES %; MEAN CORPUS HGB CONC 31.4 g/dL (32.0-36.0); MEAN CORPUSCULAR HEMOGLOB 29.5 pg (26.0-34.0); MEAN PLATELET VOLUME 9.9 fL (9.2-13.0); PLATELET COUNT 309 10/3/uL (150-400); RBC DISTRIBUTION WIDTH 17.5 % (12.0-16.0); RED CELL COUNT 3.15 10/6/uL (4.7-6.1); WHITE BLOOD CELLS 10.9 10/3/uL (4.5-10.5)
[2016-07-17 06:25] LABS: BUN (BLOOD UREA NITROGEN) 15 MG/DL (6-23); CALCIUM, SERUM 8.3 MG/DL (8.5-10.4); CHLORIDE, SERUM 105 MMOL/L (96-112); CO2 (CARBON DIOXIDE) 29 MMOL/L (24-34); CREATININE 0.63 MG/DL (0.70-1.30); GFR AFRICAN AMERICAN 106 ML/MIN (>=60); GFR NON AFRICAN AMERICAN 92 ML/MIN (>=60); GLUCOSE, SERUM 97 MG/DL (60-99); POTASSIUM, SERUM 3.5 MMOL/L (3.5-5.3); SODIUM, SERUM 141 MMOL/L (135-148)
[2016-07-17 06:43] LABS: EOSINOPHILS 2 %; EOSINOPHILS ABSOLUTE (CALC) 0.22 10/3/uL (0.0-0.53); LYMPHOCYTES 6 %; LYMPHOCYTES ABSOLUTE (CALC) 0.65 10/3/uL (0.67-4.30); MONOCYTES 3 %; MONOCYTES ABSOLUTE (CALC) 0.33 10/3/uL (0.21-1.20); PLATELET ESTIMATE ADQ (ADEQUATE); RBC MORPHOLOGY NORM (NORMAL); SEGMENTED NEUTROPHIL (0) 89 %; TOTAL NUCLEATED CELLS 100
[2016-11-13] MEDS ORDERED: SIN25 PO (20:08)
[2016-11-13] MEDS ORDERED: LIPITOR20 PO (20:08)
[2016-11-13] MEDS ORDERED: BROVANA15 MCG INH (20:08)
[2016-11-13] MEDS ORDERED: ARICEPT10 PO (20:09)
[2016-11-13] MEDS ORDERED: ARICEPT5 PO (20:10)
[2016-11-13] MEDS ORDERED: EXELON9.5T TOP (20:10)
[2016-11-13] MEDS ORDERED: FLORASTOR250 MG PO (20:11)
[2016-11-13] MEDS ORDERED: DUONEB INH (20:13)
[2016-11-13] MEDS ORDERED: LEVOTHYROXIN75 MCG PO (20:13)
[2016-11-13] MEDS ORDERED: NAMENDA5 PEG (20:14)
[2016-11-13] MEDS ORDERED: ZYPREXA10 MG PO (20:15)
[2016-11-13] MEDS ORDERED: LOP25 PEG (20:15)
[2016-11-13] MEDS ORDERED: PACERONE100 MG PO (20:17)
[2016-11-13] MEDS ORDERED: K-TABS10 MEQ PO (20:18)
[2016-11-13] MEDS ORDERED: RESTASIS OPH (20:18)
[2016-11-13] MEDS ORDERED: EFFEX75 PO (20:18)
[2016-11-13] MEDS ORDERED: FLOMAX4 PO (20:18)
[2016-11-13] MEDS ORDERED: XARELTO20 MG PO (20:19)
[2016-12-31] MEDS ORDERED: PACERONE100 MG PEG (08:57)
[2016-12-31] MEDS ORDERED: LOP25 PEG (08:57)
[2016-12-31] MEDS ORDERED: FLOMAX4 PEG (08:57)
[2016-12-31] MEDS ORDERED: NAMENDA5 PEG (08:58)
[2016-12-31] MEDS ORDERED: LIPITOR20 PEG (08:58)
[2016-12-31] MEDS ORDERED: ARICEPT10 PEG (08:58)
[2016-12-31] MEDS ORDERED: XARELTO20 MG PEG (08:59)
[2016-12-31] MEDS ORDERED: SYN075 PEG (08:59)
[2016-12-31] MEDS ORDERED: ZYPREXA10 MG PEG (08:59)
[2016-12-31] MEDS ORDERED: EFFEXOR XR150 MG PEG (09:00)
[2016-12-31] MEDS ORDERED: SIN25 PEG (09:00)
[2016-12-31] MEDS ORDERED: RESTASIS OPH (09:00)
[2016-12-31] MEDS ORDERED: ARICEPT5 PEG (09:01)
[2016-12-31] MEDS ORDERED: EXELON9.5T TOP (09:01)
[2016-12-31] MEDS ORDERED: KCL20UDL PEG (09:01)
[2016-12-31] MEDS ORDERED: FLORASTOR250 MG PEG (09:01)
[2016-12-31] MEDS ORDERED: BROVANA15 MCG INH (09:02)
[2016-12-31] MEDS ORDERED: XANAX1 MG PEG (09:02)
[2016-12-31] MEDS ORDERED: X5 PEG (09:02)
[2016-12-31] MEDS ORDERED: HUMALOGPEN SC (09:02)
[2016-12-31] MEDS ORDERED: CLEOCIN300 MG PO (09:03)
[2016-12-31] MEDS ORDERED: OCEAN NAS (09:03)
[2016-12-31] MEDS ORDERED: DUONEB INH (09:03)
== END 2016-07-18 16:24 | DRG 871 ==
LOC: ER 18:35 → 6NO 21:32
PROVIDERS: Emergency Medicine; Internal Medicine; Internal Medicine Pulmonary Disease; Nurse Practitioner Family
DX: A41.9 Sepsis, unspecified organism (principal); J96.01 Acute respiratory failure with hypoxia; J69.0 Pneumonitis due to inhalation of food and vomit; I50.33 Acute on chronic diastolic (congestive) heart failure; J18.9 Pneumonia, unspecified organism; I48.0 Paroxysmal atrial fibrillation; E87.0 Hyperosmolality and hypernatremia; R13.12 Dysphagia, oropharyngeal phase; F03.90 Unspecified dementia, unspecified severity, without behavioral disturbance, psychotic disturbance, mood disturbance, and anxiety; Y95 Nosocomial condition; G20 Parkinson's disease; I25.10 Atherosclerotic heart disease of native coronary artery without angina pectoris; Z66 Do not resuscitate; E89.0 Postprocedural hypothyroidism; D50.9 Iron deficiency anemia, unspecified; E78.5 Hyperlipidemia, unspecified; E11.9 Type 2 diabetes mellitus without complications; F32.9 Major depressive disorder, single episode, unspecified; I35.0 Nonrheumatic aortic (valve) stenosis; Z79.01 Long term (current) use of anticoagulants; Z93.1 Gastrostomy status; Z79.4 Long term (current) use of insulin; Z86.73 Personal history of transient ischemic attack (TIA), and cerebral infarction without residual deficits
CPT/HCPCS: 36600; 71010; 74000; 80048; 80053; 80202; 82805; 82962; 83605; 83690; 83735; 83880; 84100; 84145; 84443; 84484; 85025; 85610; 85730; 86140; 87040; 87804; 93005; 94640; 94668; 96365; 96375; 97162-GP; 97530-GP; 99285; A9270-GY; G8978-CN-GP; G8979-CM-GP; J0692; J1956; J2920; J2930; J3370; J3486

== ENCOUNTER 2016-07-20 23:11 | Inpatient (IN) | payer BC ==
--- NOTE | ~2016-07-20 | HP ---
History And Physical [place] [address] [place]. [address] NAME: GILBERTO DURAND SR, MD : 33 STATUS : ADM IN [facility]#: [id number] AGE: 80 ADM/REG DATE : 07/21/16 MR#: [id number] REPORT SERV DATE: 07/21/16 DICTATED BY: BLAINE CHEN DATE: 07/21/16 REPORT STATUS : Draft TRANSCRIBED BY: MODL DATE: 07/21/16 DATE OF ADMISSION: 07/21/2016 CHIEF COMPLAINT: An 80-year-old male presenting to [facility] with the facility acquired pneumonia. HISTORY OF PRESENT ILLNESS: The patient's history was obtained through careful interview with the patient and coupled with review of [facility] medical records. The patient was just hospitalized earlier in 07/2016 with pneumonia and was able to be discharged to [facility] about two days ago in stable condition and then on 07/20/2016 had increasing shortness of breath and a cough that was productive but he was swallowing the sputum. He has had difficulty sleeping at the facility, and on the night leading up to admission, developed fevers, chills, diaphoresis, and increasing confusion. His confusion was so severe that he did not even recognize his . For the last 24 hours, the patient has been "talking in a little bitty voice" and then by this evening was unable to talk or communicate at all. He denies any kind of pain complaints, and there has been no suspicion of pain as he has not been grimacing or showing other pain behavior. No nausea or vomiting. No diarrhea. REVIEW OF SYSTEMS: Otherwise, a 14-point review of systems was obtained and was negative. PAST MEDICAL HISTORY: 1. Parkinson disease. 2. Chronic aspiration with a PEG tube followed by Dr. Carr. 3. Alzheimer dementia. 4. Pneumonia with aspiration. 5. Atrial fibrillation, seen by Dr. White, on Xarelto. 6. Diastolic congestive heart failure with systolic dysfunction with EF 40%. 7. Stroke. 8. Moderate aortic stenosis, not considered a surgical candidate. 9. Diabetes. 10.Anemia. 11.Hypothyroidism, status post radiation and now with hypothyroidism. 12.Vertigo. 13.Prostate cancer. 14.MRSA. 15.Cellulitis of the legs. 16.Prostatic hypertrophy. History And Physical [place] [address] [place]. [address] NAME: GILBERTO DURAND SR, MD : 33 STATUS : ADM IN PAT#: [id number] AGE: 80 ADM/REG DATE : 07/21/16 MR#: [id number] REPORT SERV DATE: 07/21/16 DICTATED BY: BLAINE CHEN DATE: 07/21/16 REPORT STATUS : Draft TRANSCRIBED BY: JEMMA DATE: 07/21/16.Coronary artery disease, status post CABG, followed by Dr. Jimenez. PAST SURGICAL HISTORY: 1. PEG tube placement. 2. CABG in 2008. 3. TURP. 4. Cholecystectomy. 5. Melanoma in 2010. 6. Basal cell carcinoma of the foot removed. CODE STATUS: DNR. ALLERGIES: SHELLFISH, PENICILLIN, AND BENADRYL. 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 No tobacco abuse. No alcohol abuse. FAMILY HISTORY: Father with heart disease. Son, melanoma. Mother of "old age." A strong family history of diabetes. CURRENT MEDICATIONS: Include carbidopa, levodopa per PEG three times a day, eye drops, Levemir 5 units subcutaneous twice a day, sliding scale insulin, Levaquin 750 mg per PEG daily, Synthroid 75 mcg daily, melatonin 3 mg nightly, Namenda 5 mg twice a day, Lopressor 25 mg twice a day, Zofran p.r.n., Xarelto 20 mg at bedtime, Exelon patch, Florastor 250 mg in the morning, and Effexor 75 mg twice a day. PHYSICAL EXAMINATION: VITAL SIGNS: Temperature of 102.5, pulse of 93, blood pressure 133/63, respiratory rate 24, and O2 saturation 96% on 2 L nasal cannula. GENERAL: A toxic-appearing male, in evidence of distress from his illness. HEENT: Pupils equal, round, and reactive to light. No conjunctival pallor. No scleral icterus. Nares are patent. Oropharynx is clear of obstruction. Moist mucous membranes. NECK: Trachea midline. No thyromegaly. LYMPH: No cervical lymphadenopathy. No supraclavicular lymphadenopathy. RESPIRATORY: Harsh rhonchi and diffuse rales at the base of lungs. No significant wheezes at this time. The patient has a labored respiratory effort heaving with his abdomen with each breath. CARDIOVASCULAR: Regular rate and rhythm. No murmurs, rubs, or gallops. The patient does have pitting lower extremity edema around his ankles. ABDOMEN: Soft, nontender, nondistended. Normal bowel sounds auscultated throughout. No hepatosplenomegaly. DERMATOLOGICAL: Warm, diaphoretic extremities. No pallor. No cyanosis. PSYCHIATRIC: A flat affect. The patient is cooperative. He is alert. He is disoriented x3. History And Physical [address] [address] NAME: GILBERTO DURAND SR, MD : 33 STATUS : ADM IN [facility]#: [id number] AGE: 80 ADM/REG DATE : 07/21/16 MR#: [id number] REPORT SERV DATE: 07/21/16 DICTATED BY: BLAINE CHEN DATE: 07/21/16 REPORT STATUS : Draft TRANSCRIBED BY: JEMMA DATE: 07/21/16 LABORATORY DATA: PH 7.56, PaCO2 of 38, a PaO2 of 66, and bicarb 34. Urinalysis negative for infection. White blood cell count 15.2, hemoglobin 10, hematocrit 34, and platelets 388. Sodium 148, potassium 3.9, chloride 105, bicarb 33, BUN 27, creatinine 1.11, glucose 155. Brain natriuretic peptide 845. Lactic acid 1.8. Liver enzymes within normal limits. STUDIES: 1. Chest x-ray by my own evaluation shows bibasilar infiltrates and bilateral pleural effusions. 2. EKG by my own evaluation shows sinus rhythm, currently inferior Q-waves are noted. ASSESSMENT AND PLAN: 1. Sepsis, fever of 102.5, pulse greater than 90, tachypnea, encephalopathy, and white blood cell count of 15.2. Check blood cultures. Place on appropriate IV antibiotics. 2. Facility-acquired pneumonia with aspiration. Check blood cultures. Place on IV cefepime, IV vancomycin. Noted history of MRSA. 3. Diastolic and systolic congestive heart failure exacerbation. Place on IV diuretic. Provide supportive care. Continue beta marcelino as tolerated. Assess for possible AMANDA inhibitor (?). 4. Parkinson disease with Alzheimer's dementia with increasing disability. 5. DNR status. 6. Urinary retention. The patient was about 2 L drained with straight catheterization. We will start Flomax and Proscar and follow postvoid residual. KPL/MODL Blaine Chen M.D. / [id number] CC: MD Trevor Cotto M.D. Susan J Gouge, D.O.
--- NOTE | ~2016-07-20 | DS ---
Discharge Summary [place] [address] [place]. [address] NAME: GILBERTO DURAND SR, MD : 33 STATUS : DIS IN PAT#: [id number] AGE: 80 ADM/REG DATE : 07/21/16 MR#: [id number] REPORT SERV DATE: 08/02/16 DICTATED BY: JARRED GUZMAN DATE: 08/01/16 REPORT STATUS : Draft TRANSCRIBED BY: MODL DATE: 08/01/16 ADMISSION DATE: 07/21/2016 DISCHARGE DATE: 08/01/2016 DISCHARGE DIAGNOSES: 1. Healthcare associated pneumonia as well as recurrent aspiration pneumonia with sepsis. 2. Acute on chronic hypoxic respiratory failure. 3. Hypernatremia. 4. Severe oropharyngeal dysphagia, tube feeds per PEG tube dependent. 5. Insulin-dependent diabetes type 2. 6. Chronic diastolic congestive heart failure. 7. Paroxysmal atrial fibrillation, on Xarelto. 8. Iron-deficiency anemia. 9. Previous cerebrovascular accident. 10.Parkinson's disease. 11.Dementia. 12.The patient is quite debilitated at baseline. CONSULTS: None. PROCEDURES: None. HOSPITAL COURSE: This is an 80-year-old gentleman who was admitted to the hospital with a recurrent episode of aspiration and pneumonia. For details please refer to the excellent H and P dictated by Dr. Trujillo. In summary, the patient has been in and out of the hospital since early this year with recurrent episodes of aspiration. The patient was actually discharged only two days prior to he was readmitted this time around. I actually took care of him during his recent last hospitalization which was for aspiration pneumonia as well as healthcare acquired pneumonia. The patient was admitted and was treated with IV antibiotic therapy. The patient did have recurrent fevers through the early part of the hospital stay without becoming overly septic. None of the patient's cultures came back positive and the patient was empirically covered with antibiotic therapy for 10 days before it was discontinued. Throughout the last few days of the hospital stay, the patient remained hemodynamically stable and only requiring 3 L of oxygen per nasal cannula, which is his baseline requirement. The patient's white blood cell count also remained within normal limits over the last few days of hospital stay as well as a normal procalcitonin level. The patient's family was educated extensively about the patient's poor overall prognosis and that it is only a matter of time before the patient has another aspiration episode which will likely end up in a readmission to the hospital. The patient's family was also educated on dangers of repeated antibiotic therapy. Unfortunately, the patient's was still wanting everything to be done except for heroic measures such as CPR or mechanical intubation. In any case, the patient has been stable and he is now stable for [facility]. DISPOSITION: D/C to [facility]. Discharge Summary [address] [address] NAME: GILBERTO DURAND SR, MD : 33 STATUS : DIS IN PAT#: [id number] AGE: 80 ADM/REG DATE : 07/21/16 MR#: [id number] REPORT SERV DATE: 08/02/16 DICTATED BY: JARRED GUZMAN DATE: 08/01/16 REPORT STATUS : Draft TRANSCRIBED BY: JEMMA DATE: 08/01/16 DISCHARGE MEDICATIONS: Please see medication list, there are no changes and the patient is not being discharged with any antibiotics. FOLLOWUP: Please follow up with PCP in the next two to three weeks. A total of 45 minutes spent in coordinating the patient's discharge today including time spent to insurance counsel the patient and the patient's family. ROGELIO/JEMMA Jarred Guzman MD / [id number] CC: MD Trevor Cotto M.D.
--- NOTE | ~2016-07-20 | IDS ---
Interim Discharge Summary [address] [place]. [address] NAME: GILBERTO DURAND SR, MD : 33 STATUS : ADM IN PAT#: [id number] AGE: 80 ADM/REG DATE : 07/21/16 MR#: [id number] REPORT SERV DATE: 07/31/16 DICTATED BY: VIOLETTA JOHNSON DATE: 07/30/16 REPORT STATUS : Draft TRANSCRIBED BY: MODL DATE: 07/30/16 ADMISSION DATE: 07/21/2016 DISCHARGE DATE: DATE OF INTERIM SUMMARY: 07/30/2016. CURRENT DIAGNOSES: 1. Healthcare-associated pneumonia. 2. Oropharyngeal dysphagia with recurrent aspiration pneumonia. 3. PEG tube with enteral nutrition. 4. Hypernatremia. 5. Acute hypoxemic respiratory failure. 6. Type 2 diabetes, on insulin. 7. Urinary retention with Sanz catheter. 8. Paroxysmal atrial fibrillation, on Xarelto. 9. Mayvg-zo-ipyentm diastolic congestive heart failure. 10.Parkinson disease. 11.Previous stroke. 12.Depression. 13.Dementia. 14.Coronary artery disease with previous coronary artery bypass grafting. 15.Moderate aortic stenosis, not transcatheter aortic valve replacement or surgery candidate per previous Cardiology evaluation. 16.Anemia of chronic disease. 17.Iron deficiency, documented 05/2016. 18.History of hyperthyroidism and treated with radioactive iodine and subsequent hypothyroid on replacement therapy. 19.Wounds. 20.Back dermatitis, improved. 21.History of prostate cancer, not treated. 22.Hyperlipidemia. OPERATION AND PROCEDURES: None. PRESENT ILLNESS: This is an 80-year-old white male who was admitted by Dr. Lonnie Trujillo on 07/21/2016 with sepsis and facility-acquired pneumonia in the setting of the above-mentioned comorbidities. Significant history included a hospitalization here 07/10/2016 to 07/18/2016, with a similar presentation. Reportedly, he was stable for 48 hours at [facility]. He then developed worsening shortness of breath and cough. Additional history per Dr. Trujillo. Interim Discharge Summary [address] [address] NAME: GILBERTO DURAND SR, MD : 33 STATUS : ADM IN PAT#: [id number] AGE: 80 ADM/REG DATE : 07/21/16 MR#: [id number] REPORT SERV DATE: 07/31/16 DICTATED BY: VIOLETTA JOHNSON DATE: 07/30/16 REPORT STATUS : Draft TRANSCRIBED BY: MODL DATE: 07/30/16 PHYSICAL EXAMINATION: Per Dr. Trujillo. ADMISSION LABORATORY: Per Dr. Trujillo. HOSPITAL COURSE: He was admitted as described by Dr. Trujillo with: 1. Sepsis. 2. Facility-acquired pneumonia with aspiration. 3. Diastolic and systolic congestive heart failure exacerbation. All in the setting of the above-mentioned comorbidities. On admission, cultures were obtained. He was started on healthcare-associated antimicrobial therapy. He was given additional diuretic therapy. His hospital care was by Dr. Bustamante on 07/21/2016, 07/22/2016, and 07/23/2016 and the undersigned from 07/24/2016 through 07/30/2016. He was started on cefepime, vancomycin, and metronidazole. He developed some worsening confusion. It was thought possibly due to cefepime. Levaquin was substituted and his acute confusion improved. He had fever on admission. His last temperature elevation was 100.1 on 07/25/2016. A procalcitonin on 07/20/2016, was 0.17. It fell to 0.06 on 07/22/2016, was 0.3 on 07/23/2016, and 0.2 on 07/24/2016. His white blood cell count was 15.2 on 07/20/2016, has fallen to 8.8 today. A C-reactive protein was 19.3 on 07/24/2016, 102 on 07/27/2016, and 56.6 today. Blood cultures from admission were no growth. It was not possible to get a sputum culture. Radiographically, a chest x-ray prior to discharge showed cardiomegaly with pulmonary venous hypertension, bibasilar atelectasis, and/or infiltrates with small effusions. A chest x-ray on 07/20/2016, on admission showed no acute cardiopulmonary disease, stable CABG, with persistent pulmonary venous hypertension and resolving left lower lobe and right lower lobe airspace disease/atelectasis. A CT scan of his chest was done on 07/24/2016, to further evaluate his presentation and persistent symptoms. This demonstrated bilateral posterior basal and lateral basilar lower lobe consolidation with areas of intraluminal debris involving the bronchi most concerning for aspiration. There were mild inflammatory changes with tree-in-bud like opacities in the upper lobes. There were no pleural effusions. There was cardiomegaly with small hiatal hernia. Today is day #10 of vancomycin, #10 of metronidazole, #5 of Levaquin. Current plan is to discontinue antimicrobial therapy after today. Aspiration precautions continue. Mouth care continues. He is tolerating his enteral nutrition at goal rate with regular stools. Interim Discharge Summary [address] [address] NAME: GILBERTO DURAND SR, MD : 33 STATUS : ADM IN [facility]#: [id number] AGE: 80 ADM/REG DATE : 07/21/16 MR#: [id number] REPORT SERV DATE: 07/31/16 DICTATED BY: VIOLETTA JOHNSON DATE: 07/30/16 REPORT STATUS : Draft TRANSCRIBED BY: JEMMA DATE: 07/30/16 He does require a large volume of free water to maintain a normal sodium level. On admission, his sodium was 148. It increased to 155 on 07/25/2016. Current sodium today is 144 on 200 mL of free water every 2 hours. Current O2 saturation today 100% on 3 L. BNP level has improved with the above-mentioned therapy from 845.8 to 301.4 on 07/29/2016. Attempts to have been made to optimize blood sugar control. Blood sugars have generally been in the mid to low 100s with intermittent insulin adjustments. He had urinary retention on admission. A Sanz catheter has been maintained. He maintained Xarelto for paroxysmal atrial fibrillation. He has been in sinus rhythm. Hemoglobins have been trended since admission. With further water hydration, current hemoglobin is 8.7, compared to 10.5 on admission. PT eval is pending. Current disposition plan if approved would be to return to [facility] with the same intensive treatment including current medications and bronchodilators without antimicrobial therapy. Hospitalist care to be assumed by [address] [place] [address] Team on 07/31/2016. DD/JEMMA Violetta Johnson M.D. / [id number] CC: Violetta Johnson M.D. Trevor Shaw M.D.
[~2016-07-20 23:11] MED LIST changes: +DULERA 200 MCG/13 GM INH; +DUONEB INH; +EFFEXXR75 PO; +HUMALOG SC; +LEVAQUIN750 MG PO; +LEVEMIR SC; +LOP25 PO; +NAMENDA5 PO; +PROBIOTIC PO; +SIN25 PO; +SOLU MEDROL IM; +T PO; +ZOFRAN ODT4 MG PO
[2016-07-21 00:05] LABS: BASOPHILS 0.1 %; BASOPHILS ABSOLUTE 0.02 10/3/uL (0.0-0.16); EOSINOPHILS 0 %; ER CBC TAT 0 Hrs 07 Mins; HEMOGLOBIN 10.5 g/dL (13.6-17.8); IMMATURE GRANULOCYTES 0.9 %; IMMATURE GRANULOCYTES ABSOLUTE 0.14 10/3/uL (0.0-0.11); LYMPHOCYTES 4.5 %; LYMPHOCYTES ABSOLUTE 0.69 10/3/uL (0.67-4.30); MEAN CORPUS HGB CONC 30.9 g/dL (32.0-36.0); MEAN CORPUSCULAR HEMOGLOB 29.5 pg (26.0-34.0); MEAN CORPUSCULAR VOLUME 95.5 fL (80-100); MEAN PLATELET VOLUME 9.5 fL (9.2-13.0); MONOCYTES 6.9 %; MONOCYTES ABSOLUTE 1.05 10/3/uL (0.21-1.20); NEUTROPHILS 87.6 %; NEUTROPHILS ABSOLUTE 13.28 10/3/uL (2.02-8.40); PLATELET COUNT 388 10/3/uL (150-400); RBC DISTRIBUTION WIDTH 18.6 % (12.0-16.0); RED CELL COUNT 3.56 10/6/uL (4.7-6.1); WHITE BLOOD CELLS 15.2 10/3/uL (4.5-10.5)
[2016-07-21 00:10] LABS: MANUAL DIFF NO %
[2016-07-21 00:27] LABS: BAND NEUTROPHILS 3 %; ER DIFF TAT 0 Hrs 29 Mins; IMMATURE GRANS ABSOLUTE (CALC) 0.15 10/3/uL (0.0-0.11); LYMPHOCYTES 2 %; METAMYELOCYTES 1 %; MONOCYTES 3 %; MONOCYTES ABSOLUTE (CALC) 0.46 10/3/uL (0.21-1.20); NEUTROPHILS ABSOLUTE (CALC) 14.29 10/3/uL (2.02-8.40); SEGMENTED NEUTROPHIL (0) 91 %; TOTAL NUCLEATED CELLS 100
[2016-07-21 00:28] LABS: ANISOCYTOSIS 1+ (5-10/OIF) (0-5/OIF); OVALOCYTES 1+ (3-10/OIF) (0-2/OIF); PLATELET ESTIMATE ADQ (ADEQUATE)
[2016-07-21 00:29] LABS: A/G RATIO 0.7 (0.7-1.9); ALBUMIN 2.7 G/DL (3.5-5.0); ALKALINE PHOSPHATASE 51 U/L (45-117); CHLORIDE, SERUM 105 MMOL/L (96-112); CO2 (CARBON DIOXIDE) 33 MMOL/L (24-34); CREATININE 1.11 MG/DL (0.70-1.30); GFR AFRICAN AMERICAN 71 ML/MIN (>=60); GFR NON AFRICAN AMERICAN 62 ML/MIN (>=60); POTASSIUM, SERUM 3.9 MMOL/L (3.5-5.3); SGOT(AST) 13 U/L (5-40); SGPT(ALT) 14 U/L (5-65); TOTAL BILIRUBIN 0.7 MG/DL (0-1.2); TOTAL PROTEIN 6.7 G/DL (6.0-8.5)
[2016-07-21 00:30] LABS: BUN (BLOOD UREA NITROGEN) 27 MG/DL (6-23); CALCIUM, SERUM 9.4 MG/DL (8.5-10.4); GLUCOSE, SERUM 155 MG/DL (60-99); SODIUM, SERUM 148 MMOL/L (135-148)
[2016-07-21 00:32] LABS: LACTATE 1.8 MMOL/L (0.3-2.4)
[2016-07-21 01:20] LABS: ASCORBIC ACID (UR NOT ORDER) 20 (NEG); BILIRUBIN, URINE NEGATIVE (NEG); ER URINALYSIS TAT 0 Hrs 00 Mins; KETONE, URINE NEGATIVE (NEG); LEUKOCYTE ESTERASE(NOT OR NEG (NEG); NITRITE (URINE) NEG (NEG); WBC (NOT ORDERED) (RFLEX) 1 (0-5)
[2016-07-21 01:25] LABS: PROCALCITONIN 0.17 ng/mL (<0.5)
[2016-07-21] MEDS ORDERED: XARELTO20 MG PEG (01:32)
[2016-07-21] MEDS ORDERED: LEVEMIR SC (01:34)
[2016-07-21] MEDS ORDERED: HUMALOGPEN SC (01:34)
[2016-07-21] MEDS ORDERED: MELA3 PEG (01:35)
[2016-07-21] MEDS ORDERED: FLORASTOR250 MG PEG (01:35)
[2016-07-21] MEDS ORDERED: EFFEX75 PEG (01:36)
[2016-07-21] MEDS ORDERED: SYN075 PEG (01:37)
[2016-07-21] MEDS ORDERED: PULRESP1 INH (01:37)
[2016-07-21] MEDS ORDERED: BROVANA15 MCG INH (01:37)
[2016-07-21] MEDS ORDERED: LIPITOR20 PEG (01:38)
[2016-07-21] MEDS ORDERED: LOP25 PEG (01:38)
[2016-07-21] MEDS ORDERED: NAMENDA5 PEG (01:38)
[2016-07-21] MEDS ORDERED: PACERONE100 MG PEG (01:39)
[2016-07-21] MEDS ORDERED: RESTASIS OPH (01:39)
[2016-07-21] MEDS ORDERED: SIN25 PEG (01:40)
[2016-07-21] MEDS ORDERED: DUONEB INH (01:40)
[2016-07-21] MEDS ORDERED: BUM2 PEG (01:41)
[2016-07-21] MEDS ORDERED: T PEG (01:41)
[2016-07-21] MEDS ORDERED: ZOFRAN4 PEG (01:41)
[2016-07-21] MEDS ORDERED: EXELON9.5T TOP (01:41)
[2016-07-21] MEDS ORDERED: LEVAQUIN750 MG PEG (01:42)
[2016-07-21 11:54] LABS: HEMATOCRIT 30.9 % (40.0-51.0); HEMOGLOBIN 9.4 g/dL (13.6-17.8); MEAN CORPUS HGB CONC 30.4 g/dL (32.0-36.0); MEAN CORPUSCULAR HEMOGLOB 29.2 pg (26.0-34.0); MEAN PLATELET VOLUME 9.7 fL (9.2-13.0); PLATELET COUNT 302 10/3/uL (150-400); RBC DISTRIBUTION WIDTH 18.9 % (12.0-16.0); RED CELL COUNT 3.22 10/6/uL (4.7-6.1); WHITE BLOOD CELLS 10.8 10/3/uL (4.5-10.5)
[2016-07-21 11:56] LABS: MANUAL DIFF YES %
[2016-07-21 12:01] LABS: INTERNATIONAL NORMAL RATI 1.3 UNITS (-); PROTIME (NOT ORD) 16.5 SEC (12.0-14.5)
[2016-07-21 12:02] LABS: PARTIAL THROMBO TIME 30.4 SEC (22.5-37.2)
[2016-07-21 12:16] LABS: A/G RATIO 0.6 (0.7-1.9); ALBUMIN 2.4 G/DL (3.5-5.0); ALKALINE PHOSPHATASE 45 U/L (45-117); BUN (BLOOD UREA NITROGEN) 25 MG/DL (6-23); CALCIUM, SERUM 8.8 MG/DL (8.5-10.4); CHLORIDE, SERUM 107 MMOL/L (96-112); CO2 (CARBON DIOXIDE) 34 MMOL/L (24-34); CPK 31 U/L (0-200); CREATININE 0.96 MG/DL (0.70-1.30); GFR AFRICAN AMERICAN 85 ML/MIN (>=60); GFR NON AFRICAN AMERICAN 73 ML/MIN (>=60); GLOBULIN 3.8 G/DL (2.5-4.1); POTASSIUM, SERUM 4.1 MMOL/L (3.5-5.3); SGOT(AST) 16 U/L (5-40); SGPT(ALT) 8 U/L (5-65); SODIUM, SERUM 149 MMOL/L (135-148); TOTAL BILIRUBIN 0.5 MG/DL (0-1.2); TOTAL PROTEIN 6.2 G/DL (6.0-8.5)
[2016-07-21 12:19] LABS: CK-MB 1.2 NG/ML; GLUCOSE, SERUM 195 MG/DL (60-99)
[2016-07-21 12:20] LABS: TROPONIN I 0.22 NG/ML (<0.05)
[2016-07-21 12:42] LABS: ANISOCYTOSIS 1+ (5-10/OIF) (0-5/OIF); BAND NEUTROPHILS 1 %; LYMPHOCYTES 11 %; LYMPHOCYTES ABSOLUTE (CALC) 1.19 10/3/uL (0.67-4.30); MONOCYTES 4 %; MONOCYTES ABSOLUTE (CALC) 0.43 10/3/uL (0.21-1.20); NEUTROPHILS ABSOLUTE (CALC) 9.18 10/3/uL (2.02-8.40); SEGMENTED NEUTROPHIL (0) 84 %; TOTAL NUCLEATED CELLS 100
[2016-07-21 12:43] LABS: PLATELET ESTIMATE ADQ (ADEQUATE)
[2016-07-21 13:26] LABS: PROCALCITONIN 0.16 ng/mL (<0.5)
[2016-07-22 06:13] LABS: HEMOGLOBIN 9.9 g/dL (13.6-17.8); MANUAL DIFF YES %; MEAN CORPUSCULAR HEMOGLOB 28.9 pg (26.0-34.0); MEAN CORPUSCULAR VOLUME 96.2 fL (80-100); MEAN PLATELET VOLUME 9.8 fL (9.2-13.0); PLATELET COUNT 322 10/3/uL (150-400); RBC DISTRIBUTION WIDTH 18.8 % (12.0-16.0); RED CELL COUNT 3.43 10/6/uL (4.7-6.1); WHITE BLOOD CELLS 13.1 10/3/uL (4.5-10.5)
[2016-07-22 06:26] LABS: CALCIUM, SERUM 8.6 MG/DL (8.5-10.4); CHLORIDE, SERUM 108 MMOL/L (96-112); CO2 (CARBON DIOXIDE) 34 MMOL/L (24-34); GFR AFRICAN AMERICAN 81 ML/MIN (>=60); GFR NON AFRICAN AMERICAN 70 ML/MIN (>=60); POTASSIUM, SERUM 3.4 MMOL/L (3.5-5.3); SODIUM, SERUM 153 MMOL/L (135-148)
[2016-07-22 06:27] LABS: BUN (BLOOD UREA NITROGEN) 29 MG/DL (6-23); GLUCOSE, SERUM 150 MG/DL (60-99); TROPONIN I 0.24 NG/ML (<0.05)
[2016-07-22 06:49] LABS: ANISOCYTOSIS 1+ (5-10/OIF) (0-5/OIF); BAND NEUTROPHILS 1 %; LYMPHOCYTES 7 %; LYMPHOCYTES ABSOLUTE (CALC) 0.92 10/3/uL (0.67-4.30); MONOCYTES 7 %; MONOCYTES ABSOLUTE (CALC) 0.92 10/3/uL (0.21-1.20); NEUTROPHILS ABSOLUTE (CALC) 11.27 10/3/uL (2.02-8.40); PLATELET ESTIMATE ADQ (ADEQUATE); SEGMENTED NEUTROPHIL (0) 85 %; TOTAL NUCLEATED CELLS 100
[2016-07-22 07:17] LABS: PROCALCITONIN 0.06 ng/mL (<0.5)
[2016-07-23 05:01] LABS: HEMOGLOBIN 10.4 g/dL (13.6-17.8); MANUAL DIFF YES %; MEAN CORPUS HGB CONC 29.7 g/dL (32.0-36.0); MEAN CORPUSCULAR HEMOGLOB 28.8 pg (26.0-34.0); MEAN PLATELET VOLUME 9.7 fL (9.2-13.0); PLATELET COUNT 326 10/3/uL (150-400); RBC DISTRIBUTION WIDTH 18.8 % (12.0-16.0); RED CELL COUNT 3.61 10/6/uL (4.7-6.1); WHITE BLOOD CELLS 11.6 10/3/uL (4.5-10.5)
[2016-07-23 05:17] LABS: CALCIUM, SERUM 8.9 MG/DL (8.5-10.4); CHLORIDE, SERUM 112 MMOL/L (96-112); CO2 (CARBON DIOXIDE) 32 MMOL/L (24-34); CREATININE 1.14 MG/DL (0.70-1.30); GFR AFRICAN AMERICAN 69 ML/MIN (>=60); GFR NON AFRICAN AMERICAN 60 ML/MIN (>=60); SODIUM, SERUM 154 MMOL/L (135-148)
[2016-07-23 05:21] LABS: BUN (BLOOD UREA NITROGEN) 33 MG/DL (6-23); GLUCOSE, SERUM 188 MG/DL (60-99); POTASSIUM, SERUM 3.1 MMOL/L (3.5-5.3)
[2016-07-23 06:27] LABS: ANISOCYTOSIS 1+ (5-10/OIF) (0-5/OIF); BASOPHILS 1 %; BASOPHILS ABSOLUTE (CALC) 0.12 10/3/uL (0.0-0.16); LYMPHOCYTES 4 %; LYMPHOCYTES ABSOLUTE (CALC) 0.46 10/3/uL (0.67-4.30); MONOCYTES 7 %; MONOCYTES ABSOLUTE (CALC) 0.81 10/3/uL (0.21-1.20); NEUTROPHILS ABSOLUTE (CALC) 10.21 10/3/uL (2.02-8.40); SEGMENTED NEUTROPHIL (0) 88 %; TOTAL NUCLEATED CELLS 100
[2016-07-23 06:29] LABS: PLATELET ESTIMATE ADQ (ADEQUATE)
[2016-07-23 12:43] LABS: ASCORBIC ACID (UR NOT ORDER) NEG (NEG); BILIRUBIN, URINE NEGATIVE (NEG); KETONE, URINE NEGATIVE (NEG); LEUKOCYTE ESTERASE(NOT OR NEG (NEG); WBC (NOT ORDERED) (RFLEX) 1 (0-5)
[2016-07-23 14:38] LABS: INFLUENZA A SCREEN NEGATIVE (NEGATIVE); INFLUENZA B SCREEN NEGATIVE (NEGATIVE)
[2016-07-24 06:20] LABS: HEMATOCRIT 33.4 % (40.0-51.0); HEMOGLOBIN 9.9 g/dL (13.6-17.8); MEAN CORPUS HGB CONC 29.6 g/dL (32.0-36.0); MEAN CORPUSCULAR HEMOGLOB 29.2 pg (26.0-34.0); MEAN CORPUSCULAR VOLUME 98.5 fL (80-100); MEAN PLATELET VOLUME 9.9 fL (9.2-13.0); PLATELET COUNT 267 10/3/uL (150-400); RBC DISTRIBUTION WIDTH 18.5 % (12.0-16.0); RED CELL COUNT 3.39 10/6/uL (4.7-6.1); WHITE BLOOD CELLS 10.1 10/3/uL (4.5-10.5)
[2016-07-24 06:21] LABS: MANUAL DIFF YES %
[2016-07-24 06:37] LABS: BUN (BLOOD UREA NITROGEN) 31 MG/DL (6-23); CALCIUM, SERUM 8.4 MG/DL (8.5-10.4); CHLORIDE, SERUM 112 MMOL/L (96-112); CO2 (CARBON DIOXIDE) 35 MMOL/L (24-34); CREATININE 1.06 MG/DL (0.70-1.30); GFR AFRICAN AMERICAN 75 ML/MIN (>=60); GFR NON AFRICAN AMERICAN 65 ML/MIN (>=60); GLUCOSE, SERUM 172 MG/DL (60-99); POTASSIUM, SERUM 3.3 MMOL/L (3.5-5.3); SODIUM, SERUM 154 MMOL/L (135-148); VANCOMYCIN TROUGH 17.7 MCG/ML (10.0-20.0)
[2016-07-24 06:51] LABS: ANISOCYTOSIS 1+ (5-10/OIF) (0-5/OIF); BASOPHILS 1 %; EOSINOPHILS 2 %; LYMPHOCYTES 3 %; MONOCYTES 4 %; NEUTROPHILS ABSOLUTE (CALC) 9.09 10/3/uL (2.02-8.40); SEGMENTED NEUTROPHIL (0) 90 %; TOTAL NUCLEATED CELLS 100
[2016-07-24 06:53] LABS: PLATELET ESTIMATE ADQ (ADEQUATE)
[2016-07-24 07:07] LABS: PROCALCITONIN 0.21 ng/mL (<0.5)
[2016-07-24 13:14] LABS: C-REACTIVE PROTEIN 19.3 MG/L (<8.0)
[2016-07-25 07:15] LABS: HEMATOCRIT 31.1 % (40.0-51.0); HEMOGLOBIN 9.3 g/dL (13.6-17.8); MEAN CORPUS HGB CONC 29.9 g/dL (32.0-36.0); MEAN CORPUSCULAR HEMOGLOB 29.4 pg (26.0-34.0); MEAN CORPUSCULAR VOLUME 98.4 fL (80-100); PLATELET COUNT 236 10/3/uL (150-400); RBC DISTRIBUTION WIDTH 18.7 % (12.0-16.0); RED CELL COUNT 3.16 10/6/uL (4.7-6.1); WHITE BLOOD CELLS 11.2 10/3/uL (4.5-10.5)
[2016-07-25 07:22] LABS: MANUAL DIFF YES %
[2016-07-25 07:42] LABS: C-REACTIVE PROTEIN 14.2 MG/L (<8.0); CALCIUM, SERUM 8.5 MG/DL (8.5-10.4); CHLORIDE, SERUM 116 MMOL/L (96-112); CO2 (CARBON DIOXIDE) 31 MMOL/L (24-34); CREATININE 0.86 MG/DL (0.70-1.30); GFR AFRICAN AMERICAN 94 ML/MIN (>=60); GFR NON AFRICAN AMERICAN 81 ML/MIN (>=60); POTASSIUM, SERUM 3.6 MMOL/L (3.5-5.3); SODIUM, SERUM 155 MMOL/L (135-148)
[2016-07-25 07:43] LABS: BUN (BLOOD UREA NITROGEN) 26 MG/DL (6-23); GLUCOSE, SERUM 133 MG/DL (60-99)
[2016-07-25 08:10] LABS: EOSINOPHILS 2 %; EOSINOPHILS ABSOLUTE (CALC) 0.22 10/3/uL (0.0-0.53); LYMPHOCYTES 5 %; LYMPHOCYTES ABSOLUTE (CALC) 0.56 10/3/uL (0.67-4.30); MONOCYTES 5 %; MONOCYTES ABSOLUTE (CALC) 0.56 10/3/uL (0.21-1.20); NEUTROPHILS ABSOLUTE (CALC) 9.86 10/3/uL (2.02-8.40); SEGMENTED NEUTROPHIL (0) 88 %; TOTAL NUCLEATED CELLS 100
[2016-07-25 08:11] LABS: ANISOCYTOSIS 1+ (5-10/OIF) (0-5/OIF); PLATELET ESTIMATE ADQ (ADEQUATE)
[2016-07-26 05:23] LABS: HEMATOCRIT 29.9 % (40.0-51.0); MANUAL DIFF YES %; MEAN CORPUS HGB CONC 30.1 g/dL (32.0-36.0); MEAN CORPUSCULAR HEMOGLOB 28.8 pg (26.0-34.0); MEAN CORPUSCULAR VOLUME 95.5 fL (80-100); MEAN PLATELET VOLUME 9.8 fL (9.2-13.0); PLATELET COUNT 192 10/3/uL (150-400); RBC DISTRIBUTION WIDTH 18.8 % (12.0-16.0); RED CELL COUNT 3.13 10/6/uL (4.7-6.1); WHITE BLOOD CELLS 17.5 10/3/uL (4.5-10.5)
[2016-07-26 05:47] LABS: BUN (BLOOD UREA NITROGEN) 28 MG/DL (6-23); CALCIUM, SERUM 8.2 MG/DL (8.5-10.4); CHLORIDE, SERUM 110 MMOL/L (96-112); CO2 (CARBON DIOXIDE) 29 MMOL/L (24-34); CREATININE 0.78 MG/DL (0.70-1.30); GFR AFRICAN AMERICAN 97 ML/MIN (>=60); GFR NON AFRICAN AMERICAN 84 ML/MIN (>=60); GLUCOSE, SERUM 138 MG/DL (60-99); POTASSIUM, SERUM 3.4 MMOL/L (3.5-5.3); SODIUM, SERUM 150 MMOL/L (135-148)
[2016-07-26 06:36] LABS: ANISOCYTOSIS 1+ (5-10/OIF) (0-5/OIF); BAND NEUTROPHILS 3 %; EOSINOPHILS 2 %; EOSINOPHILS ABSOLUTE (CALC) 0.35 10/3/uL (0.0-0.53); LYMPHOCYTES 6 %; LYMPHOCYTES ABSOLUTE (CALC) 1.05 10/3/uL (0.67-4.30); MONOCYTES 3 %; MONOCYTES ABSOLUTE (CALC) 0.53 10/3/uL (0.21-1.20); NEUTROPHILS ABSOLUTE (CALC) 15.58 10/3/uL (2.02-8.40); PLATELET ESTIMATE ADQ (ADEQUATE); SEGMENTED NEUTROPHIL (0) 86 %; TOTAL NUCLEATED CELLS 100
[2016-07-26 06:37] LABS: TOXIC GRANULATION 1+
[2016-07-26 06:40] LABS: POLYCHROMASIA 1+ (2-5/OIF) (0-1/OIF)
[2016-07-27 05:08] LABS: HEMATOCRIT 31.3 % (40.0-51.0); HEMOGLOBIN 9.5 g/dL (13.6-17.8); MEAN CORPUS HGB CONC 30.4 g/dL (32.0-36.0); MEAN CORPUSCULAR HEMOGLOB 29.3 pg (26.0-34.0); MEAN CORPUSCULAR VOLUME 96.6 fL (80-100); MEAN PLATELET VOLUME 10.5 fL (9.2-13.0); PLATELET COUNT 205 10/3/uL (150-400); RBC DISTRIBUTION WIDTH 18.7 % (12.0-16.0); RED CELL COUNT 3.24 10/6/uL (4.7-6.1); WHITE BLOOD CELLS 12.8 10/3/uL (4.5-10.5)
[2016-07-27 05:12] LABS: MANUAL DIFF YES %
[2016-07-27 05:49] LABS: CALCIUM, SERUM 8.1 MG/DL (8.5-10.4); CHLORIDE, SERUM 111 MMOL/L (96-112); CO2 (CARBON DIOXIDE) 33 MMOL/L (24-34); CREATININE 0.92 MG/DL (0.70-1.30); GFR AFRICAN AMERICAN 89 ML/MIN (>=60); GFR NON AFRICAN AMERICAN 77 ML/MIN (>=60); GLUCOSE, SERUM 125 MG/DL (60-99); POTASSIUM, SERUM 3.6 MMOL/L (3.5-5.3); SODIUM, SERUM 150 MMOL/L (135-148); VANCOMYCIN TROUGH 19.6 MCG/ML (10.0-20.0)
[2016-07-27 05:58] LABS: BUN (BLOOD UREA NITROGEN) 23 MG/DL (6-23)
[2016-07-27 06:12] LABS: BAND NEUTROPHILS 2 %; LYMPHOCYTES 9 %; LYMPHOCYTES ABSOLUTE (CALC) 1.15 10/3/uL (0.67-4.30); MONOCYTES 4 %; MONOCYTES ABSOLUTE (CALC) 0.51 10/3/uL (0.21-1.20); NEUTROPHILS ABSOLUTE (CALC) 11.14 10/3/uL (2.02-8.40); SEGMENTED NEUTROPHIL (0) 85 %; TOTAL NUCLEATED CELLS 100
[2016-07-27 06:13] LABS: ANISOCYTOSIS 1+ (5-10/OIF) (0-5/OIF); PLATELET ESTIMATE ADQ (ADEQUATE)
[2016-07-28 05:22] LABS: HEMATOCRIT 30.5 % (40.0-51.0); HEMOGLOBIN 9.3 g/dL (13.6-17.8); MEAN CORPUS HGB CONC 30.5 g/dL (32.0-36.0); MEAN CORPUSCULAR HEMOGLOB 29.1 pg (26.0-34.0); MEAN CORPUSCULAR VOLUME 95.3 fL (80-100); MEAN PLATELET VOLUME 10.5 fL (9.2-13.0); PLATELET COUNT 204 10/3/uL (150-400); RBC DISTRIBUTION WIDTH 18.7 % (12.0-16.0); WHITE BLOOD CELLS 11.3 10/3/uL (4.5-10.5)
[2016-07-28 05:24] LABS: MANUAL DIFF YES %
[2016-07-28 05:27] LABS: BUN (BLOOD UREA NITROGEN) 22 MG/DL (6-23); C-REACTIVE PROTEIN 65.5 MG/L (<8.0); CHLORIDE, SERUM 107 MMOL/L (96-112); CO2 (CARBON DIOXIDE) 31 MMOL/L (24-34); CREATININE 0.77 MG/DL (0.70-1.30); GFR AFRICAN AMERICAN 98 ML/MIN (>=60); GFR NON AFRICAN AMERICAN 85 ML/MIN (>=60); GLUCOSE, SERUM 145 MG/DL (60-99); POTASSIUM, SERUM 3.6 MMOL/L (3.5-5.3); SODIUM, SERUM 145 MMOL/L (135-148)
[2016-07-28 05:54] LABS: BAND NEUTROPHILS 1 %; LYMPHOCYTES 15 %; MONOCYTES 1 %; MONOCYTES ABSOLUTE (CALC) 0.11 10/3/uL (0.21-1.20); NEUTROPHILS ABSOLUTE (CALC) 9.49 10/3/uL (2.02-8.40); PLATELET ESTIMATE ADQ (ADEQUATE); SEGMENTED NEUTROPHIL (0) 83 %; TOTAL NUCLEATED CELLS 100
[2016-07-28 05:56] LABS: ANISOCYTOSIS 1+ (5-10/OIF) (0-5/OIF)
[2016-07-29 06:56] LABS: BUN (BLOOD UREA NITROGEN) 21 MG/DL (6-23); CALCIUM, SERUM 8.2 MG/DL (8.5-10.4); CHLORIDE, SERUM 104 MMOL/L (96-112); CO2 (CARBON DIOXIDE) 31 MMOL/L (24-34); CREATININE 0.77 MG/DL (0.70-1.30); GFR AFRICAN AMERICAN 98 ML/MIN (>=60); GFR NON AFRICAN AMERICAN 85 ML/MIN (>=60); POTASSIUM, SERUM 3.4 MMOL/L (3.5-5.3); SODIUM, SERUM 142 MMOL/L (135-148)
[2016-07-29 06:57] LABS: GLUCOSE, SERUM 115 MG/DL (60-99); HEMATOCRIT 28.5 % (40.0-51.0); HEMOGLOBIN 8.9 g/dL (13.6-17.8); MEAN CORPUS HGB CONC 31.2 g/dL (32.0-36.0); MEAN CORPUSCULAR HEMOGLOB 29.4 pg (26.0-34.0); MEAN CORPUSCULAR VOLUME 94.1 fL (80-100); MEAN PLATELET VOLUME 10.6 fL (9.2-13.0); PLATELET COUNT 197 10/3/uL (150-400); RBC DISTRIBUTION WIDTH 18.5 % (12.0-16.0); RED CELL COUNT 3.03 10/6/uL (4.7-6.1); WHITE BLOOD CELLS 8.5 10/3/uL (4.5-10.5)
[2016-07-29 07:15] LABS: MANUAL DIFF YES %
[2016-07-29 09:12] LABS: SEGMENTED NEUTROPHIL (0) 75 %; TOTAL NUCLEATED CELLS 100
[2016-07-29 09:13] LABS: ANISOCYTOSIS 1+ (5-10/OIF) (0-5/OIF); BAND NEUTROPHILS 6 %; EOSINOPHILS 2 %; EOSINOPHILS ABSOLUTE (CALC) 0.17 10/3/uL (0.0-0.53); IMMATURE GRANS ABSOLUTE (CALC) 0.17 10/3/uL (0.0-0.11); LYMPHOCYTES 9 %; LYMPHOCYTES ABSOLUTE (CALC) 0.77 10/3/uL (0.67-4.30); MACROCYTES 1+ (5-10/OIF) (0-5/OIF); METAMYELOCYTES 1 %; MONOCYTES 6 %; MONOCYTES ABSOLUTE (CALC) 0.51 10/3/uL (0.21-1.20); MYELOCYTES 1 %; NEUTROPHILS ABSOLUTE (CALC) 6.89 10/3/uL (2.02-8.40); PLATELET ESTIMATE ADQ (ADEQUATE)
[2016-07-30 08:14] LABS: HEMATOCRIT 27.8 % (40.0-51.0); HEMOGLOBIN 8.7 g/dL (13.6-17.8); MEAN CORPUS HGB CONC 31.3 g/dL (32.0-36.0); MEAN CORPUSCULAR HEMOGLOB 29.3 pg (26.0-34.0); MEAN CORPUSCULAR VOLUME 93.6 fL (80-100); MEAN PLATELET VOLUME 10.5 fL (9.2-13.0); PLATELET COUNT 205 10/3/uL (150-400); RBC DISTRIBUTION WIDTH 18.5 % (12.0-16.0); RED CELL COUNT 2.97 10/6/uL (4.7-6.1); WHITE BLOOD CELLS 8.8 10/3/uL (4.5-10.5)
[2016-07-30 08:18] LABS: MANUAL DIFF YES %
[2016-07-30 08:24] LABS: C-REACTIVE PROTEIN 56.6 MG/L (<8.0); CALCIUM, SERUM 8.4 MG/DL (8.5-10.4); CHLORIDE, SERUM 105 MMOL/L (96-112); CO2 (CARBON DIOXIDE) 29 MMOL/L (24-34); CREATININE 0.68 MG/DL (0.70-1.30); GFR AFRICAN AMERICAN 103 ML/MIN (>=60); GFR NON AFRICAN AMERICAN 89 ML/MIN (>=60); POTASSIUM, SERUM 3.5 MMOL/L (3.5-5.3); SODIUM, SERUM 144 MMOL/L (135-148)
[2016-07-30 08:25] LABS: BUN (BLOOD UREA NITROGEN) 16 MG/DL (6-23); GLUCOSE, SERUM 82 MG/DL (60-99)
[2016-07-30 08:49] LABS: BAND NEUTROPHILS 10 %; EOSINOPHILS 2 %; EOSINOPHILS ABSOLUTE (CALC) 0.18 10/3/uL (0.0-0.53); IMMATURE GRANS ABSOLUTE (CALC) 0.18 10/3/uL (0.0-0.11); LYMPHOCYTES 12 %; LYMPHOCYTES ABSOLUTE (CALC) 1.06 10/3/uL (0.67-4.30); METAMYELOCYTES 2 %; MONOCYTES 6 %; MONOCYTES ABSOLUTE (CALC) 0.53 10/3/uL (0.21-1.20); NEUTROPHILS ABSOLUTE (CALC) 6.86 10/3/uL (2.02-8.40); PLATELET ESTIMATE ADQ (ADEQUATE); SEGMENTED NEUTROPHIL (0) 68 %; TOTAL NUCLEATED CELLS 100
[2016-07-30 08:50] LABS: ANISOCYTOSIS 1+ (5-10/OIF) (0-5/OIF); MACROCYTES 1+ (5-10/OIF) (0-5/OIF)
[2016-07-31 04:54] LABS: HEMATOCRIT 27.8 % (40.0-51.0); HEMOGLOBIN 8.7 g/dL (13.6-17.8); MEAN CORPUS HGB CONC 31.3 g/dL (32.0-36.0); MEAN CORPUSCULAR HEMOGLOB 29.2 pg (26.0-34.0); MEAN CORPUSCULAR VOLUME 93.3 fL (80-100); MEAN PLATELET VOLUME 10.5 fL (9.2-13.0); PLATELET COUNT 235 10/3/uL (150-400); RBC DISTRIBUTION WIDTH 18.9 % (12.0-16.0); RED CELL COUNT 2.98 10/6/uL (4.7-6.1); WHITE BLOOD CELLS 9.4 10/3/uL (4.5-10.5)
[2016-07-31 04:55] LABS: MANUAL DIFF YES %
[2016-07-31 05:57] LABS: ANISOCYTOSIS 1+ (5-10/OIF) (0-5/OIF); BAND NEUTROPHILS 13 %; IMMATURE GRANS ABSOLUTE (CALC) 0.19 10/3/uL (0.0-0.11); LYMPHOCYTES 8 %; LYMPHOCYTES ABSOLUTE (CALC) 0.75 10/3/uL (0.67-4.30); METAMYELOCYTES 2 %; MONOCYTES 10 %; MONOCYTES ABSOLUTE (CALC) 0.94 10/3/uL (0.21-1.20); NEUTROPHILS ABSOLUTE (CALC) 7.52 10/3/uL (2.02-8.40); PLATELET ESTIMATE ADQ (ADEQUATE); SEGMENTED NEUTROPHIL (0) 67 %; TOTAL NUCLEATED CELLS 100
[2016-07-31 06:25] LABS: POTASSIUM, SERUM 3.6 MMOL/L (3.5-5.3); SODIUM, SERUM 140 MMOL/L (135-148)
[2016-07-31 06:36] LABS: BUN (BLOOD UREA NITROGEN) 16 MG/DL (6-23); CALCIUM, SERUM 8.4 MG/DL (8.5-10.4); CHLORIDE, SERUM 100 MMOL/L (96-112); CO2 (CARBON DIOXIDE) 31 MMOL/L (24-34); CREATININE 0.79 MG/DL (0.70-1.30); GFR AFRICAN AMERICAN 97 ML/MIN (>=60); GFR NON AFRICAN AMERICAN 84 ML/MIN (>=60)
[2016-07-31 06:41] LABS: GLUCOSE, SERUM 142 MG/DL (60-99)
[2016-08-01 04:59] LABS: HEMATOCRIT 27.2 % (40.0-51.0); HEMOGLOBIN 8.6 g/dL (13.6-17.8); MEAN CORPUS HGB CONC 31.6 g/dL (32.0-36.0); MEAN CORPUSCULAR HEMOGLOB 29.3 pg (26.0-34.0); MEAN CORPUSCULAR VOLUME 92.5 fL (80-100); MEAN PLATELET VOLUME 10.2 fL (9.2-13.0); PLATELET COUNT 246 10/3/uL (150-400); RBC DISTRIBUTION WIDTH 18.8 % (12.0-16.0); RED CELL COUNT 2.94 10/6/uL (4.7-6.1); WHITE BLOOD CELLS 8.9 10/3/uL (4.5-10.5)
[2016-08-01 05:04] LABS: MANUAL DIFF YES %
[2016-08-01 05:10] LABS: BUN (BLOOD UREA NITROGEN) 14 MG/DL (6-23); CALCIUM, SERUM 8.8 MG/DL (8.5-10.4); CHLORIDE, SERUM 99 MMOL/L (96-112); CO2 (CARBON DIOXIDE) 32 MMOL/L (24-34); GFR AFRICAN AMERICAN 96 ML/MIN (>=60); GFR NON AFRICAN AMERICAN 83 ML/MIN (>=60); POTASSIUM, SERUM 3.4 MMOL/L (3.5-5.3); SODIUM, SERUM 138 MMOL/L (135-148)
[2016-08-01 05:20] LABS: GLUCOSE, SERUM 109 MG/DL (60-99)
[2016-08-01 05:37] LABS: ANISOCYTOSIS 1+ (5-10/OIF) (0-5/OIF); BAND NEUTROPHILS 3 %; IMMATURE GRANS ABSOLUTE (CALC) 0.09 10/3/uL (0.0-0.11); LYMPHOCYTES 6 %; LYMPHOCYTES ABSOLUTE (CALC) 0.53 10/3/uL (0.67-4.30); METAMYELOCYTES 1 %; MONOCYTES 7 %; MONOCYTES ABSOLUTE (CALC) 0.62 10/3/uL (0.21-1.20); NEUTROPHILS ABSOLUTE (CALC) 7.65 10/3/uL (2.02-8.40); PLATELET ESTIMATE ADQ (ADEQUATE); SEGMENTED NEUTROPHIL (0) 83 %; TOTAL NUCLEATED CELLS 100
[2016-08-01 06:56] LABS: PROCALCITONIN 0.15 ng/mL (<0.5)
[2016-11-13] MEDS ORDERED: SIN25 PO (20:08)
[2016-11-13] MEDS ORDERED: LIPITOR20 PO (20:08)
[2016-11-13] MEDS ORDERED: BROVANA15 MCG INH (20:08)
[2016-11-13] MEDS ORDERED: ARICEPT10 PO (20:09)
[2016-11-13] MEDS ORDERED: ARICEPT5 PO (20:10)
[2016-11-13] MEDS ORDERED: EXELON9.5T TOP (20:10)
[2016-11-13] MEDS ORDERED: FLORASTOR250 MG PO (20:11)
[2016-11-13] MEDS ORDERED: DUONEB INH (20:13)
[2016-11-13] MEDS ORDERED: LEVOTHYROXIN75 MCG PO (20:13)
[2016-11-13] MEDS ORDERED: NAMENDA5 PEG (20:14)
[2016-11-13] MEDS ORDERED: ZYPREXA10 MG PO (20:15)
[2016-11-13] MEDS ORDERED: LOP25 PEG (20:15)
[2016-11-13] MEDS ORDERED: PACERONE100 MG PO (20:17)
[2016-11-13] MEDS ORDERED: FLOMAX4 PO (20:18)
[2016-11-13] MEDS ORDERED: EFFEX75 PO (20:18)
[2016-11-13] MEDS ORDERED: RESTASIS OPH (20:18)
[2016-11-13] MEDS ORDERED: K-TABS10 MEQ PO (20:18)
[2016-11-13] MEDS ORDERED: XARELTO20 MG PO (20:19)
[2016-12-31] MEDS ORDERED: LOP25 PEG (08:57)
[2016-12-31] MEDS ORDERED: FLOMAX4 PEG (08:57)
[2016-12-31] MEDS ORDERED: PACERONE100 MG PEG (08:57)
[2016-12-31] MEDS ORDERED: NAMENDA5 PEG (08:58)
[2016-12-31] MEDS ORDERED: ARICEPT10 PEG (08:58)
[2016-12-31] MEDS ORDERED: LIPITOR20 PEG (08:58)
[2016-12-31] MEDS ORDERED: SYN075 PEG (08:59)
[2016-12-31] MEDS ORDERED: XARELTO20 MG PEG (08:59)
[2016-12-31] MEDS ORDERED: ZYPREXA10 MG PEG (08:59)
[2016-12-31] MEDS ORDERED: RESTASIS OPH (09:00)
[2016-12-31] MEDS ORDERED: SIN25 PEG (09:00)
[2016-12-31] MEDS ORDERED: EFFEXOR XR150 MG PEG (09:00)
[2016-12-31] MEDS ORDERED: EXELON9.5T TOP (09:01)
[2016-12-31] MEDS ORDERED: FLORASTOR250 MG PEG (09:01)
[2016-12-31] MEDS ORDERED: KCL20UDL PEG (09:01)
[2016-12-31] MEDS ORDERED: ARICEPT5 PEG (09:01)
[2016-12-31] MEDS ORDERED: XANAX1 MG PEG (09:02)
[2016-12-31] MEDS ORDERED: HUMALOGPEN SC (09:02)
[2016-12-31] MEDS ORDERED: X5 PEG (09:02)
[2016-12-31] MEDS ORDERED: BROVANA15 MCG INH (09:02)
[2016-12-31] MEDS ORDERED: DUONEB INH (09:03)
[2016-12-31] MEDS ORDERED: OCEAN NAS (09:03)
[2016-12-31] MEDS ORDERED: CLEOCIN300 MG PO (09:03)
== END 2016-08-01 17:19 | DRG 871 ==
LOC: ER 23:11 → 6NO 07-21 02:50
PROVIDERS: Hospitalist; Internal Medicine; Specialist
DX: A41.9 Sepsis, unspecified organism (principal); J69.0 Pneumonitis due to inhalation of food and vomit; J96.21 Acute and chronic respiratory failure with hypoxia; I50.43 Acute on chronic combined systolic (congestive) and diastolic (congestive) heart failure; E87.0 Hyperosmolality and hypernatremia; R13.12 Dysphagia, oropharyngeal phase; G20 Parkinson's disease; G30.9 Alzheimer's disease, unspecified; F02.80 Dementia in other diseases classified elsewhere, unspecified severity, without behavioral disturbance, psychotic disturbance, mood disturbance, and anxiety; R33.9 Retention of urine, unspecified; E11.65 Type 2 diabetes mellitus with hyperglycemia; I25.10 Atherosclerotic heart disease of native coronary artery without angina pectoris; N40.0 Benign prostatic hyperplasia without lower urinary tract symptoms; E89.0 Postprocedural hypothyroidism; Z86.73 Personal history of transient ischemic attack (TIA), and cerebral infarction without residual deficits; Z86.14 Personal history of Methicillin resistant Staphylococcus aureus infection; Z93.1 Gastrostomy status; Z95.1 Presence of aortocoronary bypass graft; Z90.49 Acquired absence of other specified parts of digestive tract; Z85.820 Personal history of malignant melanoma of skin; Z83.3 Family history of diabetes mellitus; Z66 Do not resuscitate; Z79.4 Long term (current) use of insulin; Z79.02 Long term (current) use of antithrombotics/antiplatelets
CPT/HCPCS: 36600; 71010; 71250; 74000; 80048; 80053; 80202; 81001; 82330; 82550; 82553; 82803; 82947; 82962; 83605; 83735; 83880; 84132; 84145; 84295; 84443; 84484; 85014; 85025; 85610; 85730; 86140; 87040; 87804; 93005; 94640; 97110-GP; 97163-GP; 99285; A9270-GY; J0692; J1956; J3370; J3486

== ENCOUNTER 2016-08-11 11:42 | Inpatient (IN) | payer BC ==
--- NOTE | ~2016-08-11 | DS ---
Discharge Summary [facility] [address] [facility] [place]. [address] NAME: TEODOROEMILIEGILBERTO SR, MD : 33 STATUS : DIS IN PAT#: [id number] AGE: 80 ADM/REG DATE : 08/11/16 MR#: [id number] REPORT SERV DATE: 08/17/16 DICTATED BY: JARRED GUZMAN DATE: 08/16/16 REPORT STATUS : Draft TRANSCRIBED BY: MODL DATE: 08/16/16 ADMISSION DATE: 08/11/2016 DISCHARGE DATE: 08/16/2016 DISCHARGE DIAGNOSES: 1. Parotitis with sepsis. 2. Hypernatremia. 3. Contraction alkalosis. 4. Elevated liver enzymes. 5. Chronic hypoxic respiratory failure, requiring 3 L of oxygen per nasal cannula. 6. Severe oropharyngeal dysphagia, on tube feeds per PEG. Patient is PEG tube dependent. 7. Insulin-dependent diabetes type 2. 8. Chronic diastolic congestive heart failure. 9. Paroxysmal atrial fibrillation, on Xarelto. 10.Iron deficiency anemia. 11.Previous cerebrovascular accident. 12.Parkinson disease. 13.Dementia. 14.The patient is quite debilitated at baseline. CONSULTS: None. PROCEDURES: None. HOSPITAL COURSE: This is an 80-year-old gentleman who was admitted to the hospital with a sepsis. For details, please refer to excellent H and P by Dr. Noyola. In summary, the patient was admitted and was empirically treated with broad-spectrum antibiotics. Later, it was found that the patient was actually suffering from parotitis. Also, for his hypernatremia, which the patient is known to get, the patient was given lots of free water which improved his sodium levels back to normal. A lot of his frequent readmissions were attributed to poor communication between the correction facility and our hospital and thus, extensive communication was made with the liaison at [facility] for a continuity of care of this patient upon discharge. The main things are, the patient needs to have a lots of free water as ordered to prevent hypernatremia as well as keeping the patient strictly n.p.o. to prevent further aspiration episodes with the understanding that the patient will continue to aspirate his own saliva even if nothing is given by mouth. The patient did show progressive improvement throughout the hospital stay without needing any further workup. Antibiotics were discontinued by yesterday after patient's white blood cell count had normalized. All of his cultures have come back negative. The patient is now being discharged back to [facility] to continue rehab. The patient's overall prognosis however, still remains poor. DISPOSITION: Back to [facility]. MEDICATIONS: No changes. Discharge Summary [place] [address] [place]. [address] NAME: GILBERTO DURAND SR, MD : 33 STATUS : DIS IN PAT#: [id number] AGE: 80 ADM/REG DATE : 08/11/16 MR#: [id number] REPORT SERV DATE: 08/17/16 DICTATED BY: JARRED GUZMAN DATE: 08/16/16 REPORT STATUS : Draft TRANSCRIBED BY: JEMMA DATE: 08/16/16 FOLLOWUP: Please follow up with PCP in the next one to two weeks. A total of 40 minutes spent in coordinating this patient's discharge today. ROGELIO/JEMMA Jarred Guzman MD / [id number] CC: MD Trevor Cotto M.D.
--- NOTE | ~2016-08-11 | HP ---
History And Physical [place] [id number] [facility] [place]. [address] NAME: TEODOROEMILIEGILBERTO SR, MD : 33 STATUS : ADM IN [facility]#: [id number] AGE: 80 ADM/REG DATE : 08/11/16 MR#: [id number] REPORT SERV DATE: 08/12/16 DICTATED BY: REYNA NOYOLA DATE: 08/11/16 REPORT STATUS : Draft TRANSCRIBED BY: MODL DATE: 08/11/16 DATE OF ADMISSION: 08/11/2016 IDENTIFYING DATA: An 80-year-old white male whose PCP is now at the [facility] Dr. Carr. CHIEF COMPLAINT: Fever. HISTORY OF PRESENT ILLNESS: This history of present illness is obtained by discussion with the patient which is quite limited. I also called and spoke to his on her cell phone [phone]. Also reviewed the notes that came with him from the [facility] and spoke with the ER physician, Dr. Ruby, and reviewed [employer] and [employer]. This unfortunate gentleman has had multiple recent hospitalizations. He was here 03/10/2016 through 03/16/2016 with aspiration. Then, 05/26/2016 through 06/15/2016 with aspiration, and he was on the ventilator twice then. He was back here 07/10/2016 through 07/18/2016 with aspiration, then back again 07/21/2016 through 08/01/2016 with aspiration again. The patient was just released back to the [facility] and reportedly was noted to have fever. Their facility did a chest x-ray on him yesterday with no significant abnormalities reported. They also did a CBC yesterday and the white count was 15.2 and the sodium was 152. Today, he had fever and was sent to the emergency room here. On arrival here, temp 101, pulse 102, respirations 28, blood pressure 154/70, and O2 saturation 94% on 4 L. The ER physician felt like the gentleman had UTI and possible aspiration and possible cellulitis on his neck and asked us to admit him to the hospital. Currently, his is out of town but available by phone as mentioned above. The patient is awake. He does not offer any spontaneous conversation. He will answer a few simple yes and no questions but multiple of them he just answered I do not know. This is not very different from when I was involved in his care at the end of 06/2016. On review of systems, he denied chest pain, shortness of breath abdominal pain, nausea, or vomiting. He admitted to cough. The rest of the review of systems, he mostly just said I do not know. PAST MEDICAL HISTORY: He has a list of allergies to penicillin, shellfish, and Benadryl. He has a history of atrial fibrillation and atrial flutter. He has had chronic aspiration for which he has a PEG tube placed 12/2012. He has dementia and multiple strokes in the past, and when I saw him in 06/2016, I thought he had Parkinson disease based on his tremor at rest, his slowness of movement, his rigidity in his arms, his masklike face, and I initiated a very low-dose Sinemet trial. He has had a right brachial DVT in 06/2016. He had coronary bypass in 2008. He was noted to have moderate aortic stenosis on echocardiogram 05/2016, and at that time, Cardiology indicated they did not feel he was a surgical or a TAVR candidate. He has had recurrent hypernatremia. He has had prostate cancer. He has a history of diabetes but his A1cs have History And Physical [address] [address] NAME: GILBERTO DURAND SR, MD : 33 STATUS : ADM IN [facility]#: [id number] AGE: 80 ADM/REG DATE : 08/11/16 MR#: [id number] REPORT SERV DATE: 08/12/16 DICTATED BY: REYNA NOYOLA DATE: 08/11/16 REPORT STATUS : Draft TRANSCRIBED BY: MODL DATE: 08/11/16 been in the normal range recently. He has had a history of benign prostatic hypertrophy. He has also had major depression, previous history of alcohol excess. He has had previous cellulitis on his legs. He also had previous hyperthyroidism which was reportedly treated with radioactive iodine and then subsequently he has had hypothyroidism on replacement with his last TSH being normal at 1.36 on 07/21/2016. MEDICATIONS: At the [facility] Tylenol 650 q.4 hours p.r.n.; amiodarone 100 mg daily, hold if systolic less than 110 or heart rate less than 60; Brovana 15 mcg inhaled twice a day; Pulmicort 1 mg inhaled twice a day; Lipitor 20 mg at bedtime; Bumex 2 mg daily; Sinemet 25/100 half tablet t.i.d.; Restasis one drop both eyes twice a day; Levemir 5 units at bedtime; Humalog sliding scale; Synthroid 75 mcg daily; melatonin 3 mg at bedtime; Namenda 5 mg b.i.d.; metoprolol 25 mg b.i.d.; Zofran ODT given through his PEG every four hours p.r.n. nausea; Xarelto 20 mg at bedtime; Exelon 9.5 mg daily as a patch; Florastor 250 mg daily; Flomax 0.4 mg daily; and Effexor 75 mg through the PEG twice a day. PAST SURGICAL HISTORY: He has had the PEG in 2012. He has had coronary bypass in 2008. He has had a previous TURP. He has had a melanoma removed. He has had a cholecystectomy and he has had basal cell removed from the foot in the past. SOCIAL HISTORY: He is a retired surgeon. He is currently at [facility]. His was available by phone. He reportedly is a [place] . He has a history of alcohol excess in the past. FAMILY HISTORY: Mother reportedly of old age. Dad had heart disease. DIAGNOSTIC DATA: Chest x-ray done as a portable today shows evidence of previous sternotomy and shows a shallow inspiratory size, and he has atelectasis in the bases, possibly more so on the left side where it is difficult to see his left hemidiaphragm, this is per my interpretation. EKG done today at 1137 hours interpreted by me at this time reveals sinus tachycardia of 101 beats per minute. The patient has Q-waves. There are small II, III, aVF, has very poor R-wave progression suggesting the possibility of a previous anterior lateral IL per my interpretation. Sodium 152, potassium 3.6, chloride 109, CO2 is 40, and by comparison, his CO2's previously were in the low 30s or upper 20s. BUN is 33, and when he left here on 08/01/2016, it was 14. Creatinine 0.85, glucose 162, calcium is 8.9, albumin is 2.4, globulin 4.4, ALT is 74, which is elevated and it has not been in the past as far as I can see. His AST is elevated at 56 today, alkaline phosphatase was low at 44. His white count 15, hemoglobin 9.9, platelets 270,000. Protime 15.8, INR 1.3, PTT is 31.4. Urinalysis hazy, protein 30, urobilinogen 2, large amount of leukocyte esterase, 14 red blood cells, and 32 white blood cells, rare bacteria. PHYSICAL EXAMINATION: VITAL SIGNS: Temperature is 101, pulse 106, respirations 28, blood pressure 150/60, and O2 saturation is currently still at 94% on 4 L. GENERAL: A well-developed, older male, who appears chronically ill, but in no acute distress. HEENT: Head is atraumatic. Pupils are equal, round, and reactive to light. Extraocular motions are intact. No scleral icterus noted. Ear canal on the right side unremarkable. History And Physical [address] [address] NAME: GILBERTO DURAND SR, MD : 33 STATUS : ADM IN [facility]#: [id number] AGE: 80 ADM/REG DATE : 08/11/16 MR#: [id number] REPORT SERV DATE: 08/12/16 DICTATED BY: REYNA NOYOLA DATE: 08/11/16 REPORT STATUS : Draft TRANSCRIBED BY: JEMMA DATE: 08/11/16 He has a hearing aid on the left side. Nose, noninflamed externally. Septum midline. Nares patent. Mouth is very dry. He has a poor gag. No redness of the lips. The patient's right side of his neck is mildly erythematous but his right parotid gland is very red, it is quite swollen, it is hard, it is tender to palpation. Left parotid gland is soft, nonerythematous and nontender. NECK: Supple. No lymph node or thyroid enlargement. The carotids have good pulses. No bruits. LUNGS: Shallow inspiratory size with 1 to 2+ expiratory rhonchi, increased respiratory rate. HEART: Tachycardic with a grade 1 systolic ejection murmur at the right second intercostal space. ABDOMEN: The PEG tube in the left upper quadrant is noninflamed and nontender. There are bowel sounds throughout. It is soft nondistended. No masses. No organomegaly. EXTREMITIES: He has some abrasions that appeared fairly recent as possible. Skin tears on the right upper anterolateral calf, has a lot of old bruises. He has tremendous amount of muscle atrophy in his legs. Neurologic: The patient appears awake. He will answer simply yes and no questions. He does not initiate any other conversation. His motor strength motor strength is 1/5 in his hands. His toes he barely moves them. His leg he can hardly move them. He has masklike face. He does not have any tremor that I noticed today. He does have rigidity. No clonus and no Babinski. ASSESSMENT: 1. Sepsis with fever, leukocytosis, heart rate 102, respirations 28. As for where this might be coming from he has a swollen and tender and red right parotid glands, I think he probably has an acute parotitis. He also has had a Sanz catheter since he was in the hospital here apparently last time according to his . On urinalysis today, he had 32 white cells, so catheter associated urinary tract infection is possible, and he certainly is at high risk for recurrent aspiration pneumonitis and aspiration pneumonia. 2. Hypernatremia, recurrent, and due to free water depletion (this also puts him at higher risk for acute parotitis). 3. Contraction alkalosis, most likely related to Bumex. 4. Elevated liver enzymes, which could come from medication, could come from sepsis, could come from biliary disease or primary liver problems. 5. See past medical history. PLAN: Admit the patient to the hospital on a cardiac telemetry bed. I have talked with the by phone. She is very clear at this point in time. She does not want any intervention for him if he has a cardiac or pulmonary arrest other than she does want CPR and she is quite clear about that in discussion with me and with the ER physician, Dr. Ruby, which she talked to him earlier. Blood cultures have been drawn and sent to the lab, same with urine cultures. I am going to initiate antibiotic coverage with cefepime, vancomycin, and Flagyl because of the suspicion of this being acute parotitis, pharmacy to follow the vancomycin. We are going to hold his Bumex. I am going to give him some free water intravenously. I am also going to get him back on to his tube feedings, make sure he gets more water flush, then remove the Sanz catheter, have Wound Care team take a look at his skin, and we will follow up his liver enzymes. History And Physical [address] [place] [place]. [address] NAME: GILBERTO DURAND SR, MD : 33 STATUS : ADM IN [facility]#: [id number] AGE: 80 ADM/REG DATE : 08/11/16 MR#: [id number] REPORT SERV DATE: 08/12/16 DICTATED BY: REYNA NOYOLA DATE: 08/11/16 REPORT STATUS : Draft TRANSCRIBED BY: JEMMA DATE: 08/11/16 Overall prognosis is very poor given his age and the combination of his acute problems and his chronic problems that continued to reoccur. I believe his is aware of this. The ER physician also told me that he updated the patient's son who is reportedly a gastrointestinal physician in the [place], [place] area. MACKENZIE/JEMMA Reyna Noyola M.D. / [id number] CC: Keith Johnson M.D.
[~2016-08-11 11:42] MED LIST changes: +BROVANA15 MCG INH; +BUM2 PEG; +EFFEX75 PEG; +HUMALOGPEN SC; +LEVAQUIN750 MG PEG; +LIPITOR20 PEG; +LOP25 PEG; +MELA3 PEG; +NAMENDA5 PEG; +PULRESP1 INH; +SIN25 PEG; +T PEG; +XARELTO20 MG PEG; +ZOFRAN4 PEG
[2016-08-11 12:51] LABS: BASOPHILS 0.1 %; BASOPHILS ABSOLUTE 0.02 10/3/uL (0.0-0.16); EOSINOPHILS 1.2 %; EOSINOPHILS ABSOLUTE 0.18 10/3/uL (0.0-0.53); HEMOGLOBIN 9.9 g/dL (13.6-17.8); IMMATURE GRANULOCYTES 0.5 %; LYMPHOCYTES 6.8 %; LYMPHOCYTES ABSOLUTE 1.02 10/3/uL (0.67-4.30); MEAN CORPUSCULAR HEMOGLOB 28.4 pg (26.0-34.0); MEAN PLATELET VOLUME 9.7 fL (9.2-13.0); MONOCYTES 4.8 %; MONOCYTES ABSOLUTE 0.72 10/3/uL (0.21-1.20); NEUTROPHILS 86.6 %; NEUTROPHILS ABSOLUTE 12.96 10/3/uL (2.02-8.40); PLATELET COUNT 270 10/3/uL (150-400); RBC DISTRIBUTION WIDTH 18.7 % (12.0-16.0); RED CELL COUNT 3.49 10/6/uL (4.7-6.1)
[2016-08-11] MEDS ORDERED: SYN075 PEG (12:53)
[2016-08-11] MEDS ORDERED: RESTASIS OPH (12:53)
[2016-08-11] MEDS ORDERED: PACERONE100 MG PEG (12:53)
[2016-08-11 12:54] LABS: ER CBC TAT 0 Hrs 02 Mins; HEMATOCRIT 33.6 % (40.0-51.0); MEAN CORPUS HGB CONC 29.5 g/dL (32.0-36.0); MEAN CORPUSCULAR VOLUME 96.3 fL (80-100)
[2016-08-11] MEDS ORDERED: XARELTO20 MG PEG (12:54)
[2016-08-11] MEDS ORDERED: NAMENDA5 PEG (12:54)
[2016-08-11] MEDS ORDERED: EFFEXXR75 PEG (12:54)
[2016-08-11 12:55] LABS: IMMATURE GRANULOCYTES ABSOLUTE 0.07 10/3/uL (0.0-0.11); MANUAL DIFF NO %
[2016-08-11] MEDS ORDERED: EXELON9.5T TOP (12:56)
[2016-08-11] MEDS ORDERED: HUMALOG SC (12:56)
[2016-08-11] MEDS ORDERED: ZOFRAN ODT4 MG PEG (12:57)
[2016-08-11] MEDS ORDERED: LEVEMIR SC (12:57)
[2016-08-11] MEDS ORDERED: 8 HOUR650 MG PEG (12:58)
[2016-08-11 12:59] LABS: INTERNATIONAL NORMAL RATI 1.3 UNITS (-); PROTIME (NOT ORD) 15.8 SEC (12.0-14.5)
[2016-08-11] MEDS ORDERED: LOP25 PEG (12:59)
[2016-08-11 13:00] LABS: PARTIAL THROMBO TIME 31.4 SEC (22.5-37.2)
[2016-08-11] MEDS ORDERED: PULRESP1 INH (13:01)
[2016-08-11] MEDS ORDERED: LIPITOR20 PEG (13:01)
[2016-08-11] MEDS ORDERED: BUM2 PEG (13:02)
[2016-08-11] MEDS ORDERED: MELA3 PEG (13:02)
[2016-08-11] MEDS ORDERED: FLOMAX4 PEG (13:03)
[2016-08-11] MEDS ORDERED: FLORASTOR250 MG PEG (13:03)
[2016-08-11] MEDS ORDERED: SIN25 PEG (13:03)
[2016-08-11] MEDS ORDERED: BROVANA15 MCG INH (13:04)
[2016-08-11 13:11] LABS: A/G RATIO 0.5 (0.7-1.9); ALBUMIN 2.4 G/DL (3.5-5.0); ALKALINE PHOSPHATASE 44 U/L (45-117); ANISOCYTOSIS 1+ (5-10/OIF) (0-5/OIF); BAND NEUTROPHILS 4 %; BASOPHILS 1 %; BASOPHILS ABSOLUTE (CALC) 0.15 10/3/uL (0.0-0.16); CALCIUM, SERUM 8.9 MG/DL (8.5-10.4); CHLORIDE, SERUM 109 MMOL/L (96-112); CREATININE 0.85 MG/DL (0.70-1.30); EOSINOPHILS 1 %; EOSINOPHILS ABSOLUTE (CALC) 0.15 10/3/uL (0.0-0.53); ER DIFF TAT 0 Hrs 19 Mins; GFR AFRICAN AMERICAN 94 ML/MIN (>=60); GFR NON AFRICAN AMERICAN 81 ML/MIN (>=60); GLOBULIN 4.4 G/DL (2.5-4.1); LYMPHOCYTES 2 %; MONOCYTES 2 %; PLATELET ESTIMATE ADQ (ADEQUATE); POTASSIUM, SERUM 3.6 MMOL/L (3.5-5.3); SEGMENTED NEUTROPHIL (0) 90 %; SGOT(AST) 56 U/L (5-40); SGPT(ALT) 74 U/L (5-65); TOTAL BILIRUBIN 0.4 MG/DL (0-1.2); TOTAL NUCLEATED CELLS 100; TOTAL PROTEIN 6.8 G/DL (6.0-8.5); TOXIC GRANULATION 1+
[2016-08-11 13:12] LABS: BUN (BLOOD UREA NITROGEN) 33 MG/DL (6-23); CO2 (CARBON DIOXIDE) 40 MMOL/L (24-34); GLUCOSE, SERUM 162 MG/DL (60-99); LACTATE 1.3 MMOL/L (0.3-2.4); SODIUM, SERUM 152 MMOL/L (135-148)
[2016-08-11 14:09] LABS: ASCORBIC ACID (UR NOT ORDER) 40 (NEG); BILIRUBIN, URINE NEGATIVE (NEG); KETONE, URINE NEGATIVE (NEG); LEUKOCYTE ESTERASE(NOT OR LARGE (NEG); NITRITE (URINE) NEG (NEG); WBC (NOT ORDERED) (RFLEX) 32 (0-5)
[2016-08-11 14:34] LABS: PROCALCITONIN 0.29 ng/mL (<0.5)
[2016-08-11 20:20] LABS: TROPONIN I 0.19 NG/ML (<0.05)
[2016-08-12 05:11] LABS: HEMATOCRIT 31.2 % (40.0-51.0); HEMOGLOBIN 9.2 g/dL (13.6-17.8); MEAN CORPUS HGB CONC 29.5 g/dL (32.0-36.0); MEAN CORPUSCULAR HEMOGLOB 28.8 pg (26.0-34.0); MEAN CORPUSCULAR VOLUME 97.5 fL (80-100); MEAN PLATELET VOLUME 10.2 fL (9.2-13.0); PLATELET COUNT 267 10/3/uL (150-400); RBC DISTRIBUTION WIDTH 18.6 % (12.0-16.0); WHITE BLOOD CELLS 14.7 10/3/uL (4.5-10.5)
[2016-08-12 05:14] LABS: MANUAL DIFF YES %
[2016-08-12 05:29] LABS: A/G RATIO 0.5 (0.7-1.9); ALBUMIN 2.1 G/DL (3.5-5.0); ALKALINE PHOSPHATASE 50 U/L (45-117); BUN (BLOOD UREA NITROGEN) 35 MG/DL (6-23); CALCIUM, SERUM 8.4 MG/DL (8.5-10.4); CHLORIDE, SERUM 110 MMOL/L (96-112); CREATININE 0.98 MG/DL (0.70-1.30); GFR AFRICAN AMERICAN 83 ML/MIN (>=60); GFR NON AFRICAN AMERICAN 72 ML/MIN (>=60); GLOBULIN 4.2 G/DL (2.5-4.1); POTASSIUM, SERUM 3.3 MMOL/L (3.5-5.3); SGOT(AST) 70 U/L (5-40); SGPT(ALT) 78 U/L (5-65); SODIUM, SERUM 150 MMOL/L (135-148); TOTAL BILIRUBIN 0.5 MG/DL (0-1.2); TOTAL PROTEIN 6.3 G/DL (6.0-8.5)
[2016-08-12 05:34] LABS: CO2 (CARBON DIOXIDE) 33 MMOL/L (24-34); GLUCOSE, SERUM 223 MG/DL (60-99); TROPONIN I 0.26 NG/ML (<0.05)
[2016-08-12 05:48] LABS: ANISOCYTOSIS 1+ (5-10/OIF) (0-5/OIF); BAND NEUTROPHILS 8 %; EOSINOPHILS 1 %; EOSINOPHILS ABSOLUTE (CALC) 0.15 10/3/uL (0.0-0.53); HYPOCHROMIA 1+ (3-10/OIF) (0-2/OIF); LYMPHOCYTES 7 %; LYMPHOCYTES ABSOLUTE (CALC) 1.03 10/3/uL (0.67-4.30); MACROCYTES 1+ (5-10/OIF) (0-5/OIF); MONOCYTES 5 %; MONOCYTES ABSOLUTE (CALC) 0.74 10/3/uL (0.21-1.20); NEUTROPHILS ABSOLUTE (CALC) 12.79 10/3/uL (2.02-8.40); PLATELET ESTIMATE ADQ (ADEQUATE); POLYCHROMASIA 1+ (2-5/OIF) (0-1/OIF); SEGMENTED NEUTROPHIL (0) 79 %; TOTAL NUCLEATED CELLS 100
[2016-08-12 08:01] LABS: ASCORBIC ACID (UR NOT ORDER) 40 (NEG); BILIRUBIN, URINE NEGATIVE (NEG); KETONE, URINE TRACE MG/DL (NEG); LEUKOCYTE ESTERASE(NOT OR MOD (NEG); WBC (NOT ORDERED) (RFLEX) 19 (0-5)
[2016-08-13 06:16] LABS: HEMOGLOBIN 8.2 g/dL (13.6-17.8); MEAN CORPUS HGB CONC 29.7 g/dL (32.0-36.0); MEAN CORPUSCULAR HEMOGLOB 28.7 pg (26.0-34.0); MEAN CORPUSCULAR VOLUME 96.5 fL (80-100); MEAN PLATELET VOLUME 10.5 fL (9.2-13.0); PLATELET COUNT 223 10/3/uL (150-400); RBC DISTRIBUTION WIDTH 18.4 % (12.0-16.0); RED CELL COUNT 2.86 10/6/uL (4.7-6.1); WHITE BLOOD CELLS 10.4 10/3/uL (4.5-10.5)
[2016-08-13 06:18] LABS: HEMATOCRIT 27.6 % (40.0-51.0); MANUAL DIFF YES %
[2016-08-13 06:27] LABS: BUN (BLOOD UREA NITROGEN) 28 MG/DL (6-23); CALCIUM, SERUM 8.4 MG/DL (8.5-10.4); CHLORIDE, SERUM 110 MMOL/L (96-112); CO2 (CARBON DIOXIDE) 30 MMOL/L (24-34); CREATININE 0.78 MG/DL (0.70-1.30); GFR AFRICAN AMERICAN 97 ML/MIN (>=60); GFR NON AFRICAN AMERICAN 84 ML/MIN (>=60); GLUCOSE, SERUM 167 MG/DL (60-99); POTASSIUM, SERUM 3.7 MMOL/L (3.5-5.3); SODIUM, SERUM 146 MMOL/L (135-148); TROPONIN I 0.16 NG/ML (<0.05)
[2016-08-13 06:34] LABS: ANISOCYTOSIS 1+ (5-10/OIF) (0-5/OIF); BASOPHILS 1 %; EOSINOPHILS 4 %; EOSINOPHILS ABSOLUTE (CALC) 0.42 10/3/uL (0.0-0.53); LYMPHOCYTES 6 %; LYMPHOCYTES ABSOLUTE (CALC) 0.62 10/3/uL (0.67-4.30); MONOCYTES 3 %; MONOCYTES ABSOLUTE (CALC) 0.31 10/3/uL (0.21-1.20); NEUTROPHILS ABSOLUTE (CALC) 8.94 10/3/uL (2.02-8.40); PLATELET ESTIMATE ADQ (ADEQUATE); SEGMENTED NEUTROPHIL (0) 86 %; TOTAL NUCLEATED CELLS 100
[2016-08-14 05:22] LABS: HEMOGLOBIN 8.5 g/dL (13.6-17.8); MEAN CORPUS HGB CONC 30.4 g/dL (32.0-36.0); MEAN CORPUSCULAR HEMOGLOB 28.8 pg (26.0-34.0); MEAN CORPUSCULAR VOLUME 94.9 fL (80-100); MEAN PLATELET VOLUME 10.4 fL (9.2-13.0); PLATELET COUNT 224 10/3/uL (150-400); RBC DISTRIBUTION WIDTH 18.2 % (12.0-16.0); RED CELL COUNT 2.95 10/6/uL (4.7-6.1); WHITE BLOOD CELLS 10.1 10/3/uL (4.5-10.5)
[2016-08-14 05:26] LABS: BUN (BLOOD UREA NITROGEN) 25 MG/DL (6-23); CALCIUM, SERUM 8.6 MG/DL (8.5-10.4); CHLORIDE, SERUM 109 MMOL/L (96-112); CO2 (CARBON DIOXIDE) 29 MMOL/L (24-34); CREATININE 0.65 MG/DL (0.70-1.30); GFR AFRICAN AMERICAN 105 ML/MIN (>=60); GFR NON AFRICAN AMERICAN 91 ML/MIN (>=60); POTASSIUM, SERUM 3.4 MMOL/L (3.5-5.3); SODIUM, SERUM 147 MMOL/L (135-148)
[2016-08-14 05:28] LABS: GLUCOSE, SERUM 110 MG/DL (60-99)
[2016-08-14 05:36] LABS: MANUAL DIFF YES %
[2016-08-14 07:08] LABS: ANISOCYTOSIS 1+ (5-10/OIF) (0-5/OIF); BAND NEUTROPHILS 2 %; BASOPHILS 1 %; EOSINOPHILS 5 %; EOSINOPHILS ABSOLUTE (CALC) 0.51 10/3/uL (0.0-0.53); LYMPHOCYTES 4 %; MONOCYTES 1 %; NEUTROPHILS ABSOLUTE (CALC) 8.99 10/3/uL (2.02-8.40); PLATELET ESTIMATE ADQ (ADEQUATE); POLYCHROMASIA 1+ (2-5/OIF) (0-1/OIF); SEGMENTED NEUTROPHIL (0) 87 %; TOTAL NUCLEATED CELLS 100; TOXIC GRANULATION 1+
[2016-08-14 19:06] LABS: VANCOMYCIN TROUGH 15.6 MCG/ML (10.0-20.0)
[2016-08-14 19:07] LABS: POTASSIUM, SERUM 4.2 MMOL/L (3.5-5.3)
[2016-08-15 05:29] LABS: HEMOGLOBIN 7.7 g/dL (13.6-17.8); MEAN CORPUS HGB CONC 30.7 g/dL (32.0-36.0); MEAN CORPUSCULAR HEMOGLOB 28.5 pg (26.0-34.0); MEAN PLATELET VOLUME 10.6 fL (9.2-13.0); PLATELET COUNT 235 10/3/uL (150-400); RBC DISTRIBUTION WIDTH 18.2 % (12.0-16.0); WHITE BLOOD CELLS 7.9 10/3/uL (4.5-10.5)
[2016-08-15 05:30] LABS: HEMATOCRIT 25.1 % (40.0-51.0); MANUAL DIFF YES %
[2016-08-15 05:48] LABS: C-REACTIVE PROTEIN 64.9 MG/L (<8.0); CALCIUM, SERUM 8.4 MG/DL (8.5-10.4); CHLORIDE, SERUM 108 MMOL/L (96-112); CO2 (CARBON DIOXIDE) 27 MMOL/L (24-34); CREATININE 0.57 MG/DL (0.70-1.30); GFR AFRICAN AMERICAN 111 ML/MIN (>=60); GFR NON AFRICAN AMERICAN 96 ML/MIN (>=60); GLUCOSE, SERUM 106 MG/DL (60-99); POTASSIUM, SERUM 3.7 MMOL/L (3.5-5.3); SODIUM, SERUM 144 MMOL/L (135-148)
[2016-08-15 05:52] LABS: BUN (BLOOD UREA NITROGEN) 19 MG/DL (6-23)
[2016-08-15 06:15] LABS: BAND NEUTROPHILS 3 %; EOSINOPHILS 5 %; IMMATURE GRANS ABSOLUTE (CALC) 0.08 10/3/uL (0.0-0.11); LYMPHOCYTES 2 %; LYMPHOCYTES ABSOLUTE (CALC) 0.16 10/3/uL (0.67-4.30); METAMYELOCYTES 1 %; MONOCYTES 3 %; MONOCYTES ABSOLUTE (CALC) 0.24 10/3/uL (0.21-1.20); NEUTROPHILS ABSOLUTE (CALC) 7.03 10/3/uL (2.02-8.40); PLATELET ESTIMATE ADQ (ADEQUATE); SEGMENTED NEUTROPHIL (0) 86 %; TOTAL NUCLEATED CELLS 100
[2016-08-15 06:16] LABS: ELLIPTOCYTES 1+ (3-10/OIF) (0-2/OIF); SPHEROCYTES OCC (0-2/OIF)
[2016-08-16 05:49] LABS: HEMOGLOBIN 9.2 g/dL (13.6-17.8); MEAN CORPUS HGB CONC 31.8 g/dL (32.0-36.0); MEAN CORPUSCULAR HEMOGLOB 29.1 pg (26.0-34.0); MEAN CORPUSCULAR VOLUME 91.5 fL (80-100); MEAN PLATELET VOLUME 10.6 fL (9.2-13.0); PLATELET COUNT 254 10/3/uL (150-400); RBC DISTRIBUTION WIDTH 18.2 % (12.0-16.0); RED CELL COUNT 3.16 10/6/uL (4.7-6.1); WHITE BLOOD CELLS 7.8 10/3/uL (4.5-10.5)
[2016-08-16 06:01] LABS: HEMATOCRIT 28.9 % (40.0-51.0); MANUAL DIFF YES %
[2016-08-16 06:08] LABS: CALCIUM, SERUM 8.5 MG/DL (8.5-10.4); CHLORIDE, SERUM 109 MMOL/L (96-112); CO2 (CARBON DIOXIDE) 27 MMOL/L (24-34); CREATININE 0.54 MG/DL (0.70-1.30); GFR AFRICAN AMERICAN 113 ML/MIN (>=60); GFR NON AFRICAN AMERICAN 98 ML/MIN (>=60); GLUCOSE, SERUM 100 MG/DL (60-99); POTASSIUM, SERUM 3.4 MMOL/L (3.5-5.3); SODIUM, SERUM 144 MMOL/L (135-148)
[2016-08-16 06:11] LABS: BUN (BLOOD UREA NITROGEN) 13 MG/DL (6-23)
[2016-08-16 06:29] LABS: ANISOCYTOSIS 1+ (5-10/OIF) (0-5/OIF); BAND NEUTROPHILS 2 %; BASOPHILS 1 %; BASOPHILS ABSOLUTE (CALC) 0.08 10/3/uL (0.0-0.16); EOSINOPHILS 2 %; EOSINOPHILS ABSOLUTE (CALC) 0.16 10/3/uL (0.0-0.53); LYMPHOCYTES 9 %; MONOCYTES 6 %; MONOCYTES ABSOLUTE (CALC) 0.47 10/3/uL (0.21-1.20); PLATELET ESTIMATE ADQ (ADEQUATE); POLYCHROMASIA 1+ (2-5/OIF) (0-1/OIF); SEGMENTED NEUTROPHIL (0) 80 %; TOTAL NUCLEATED CELLS 100
[2016-08-16 13:40] LABS: ASCORBIC ACID (UR NOT ORDER) 20 (NEG); BILIRUBIN, URINE NEGATIVE (NEG); KETONE, URINE NEGATIVE (NEG); LEUKOCYTE ESTERASE(NOT OR SMALL (NEG); WBC (NOT ORDERED) (RFLEX) 4 (0-5)
[2016-08-16 14:13] LABS: POTASSIUM, SERUM 4.3 MMOL/L (3.5-5.3)
[2016-11-13] MEDS ORDERED: BROVANA15 MCG INH (20:08)
[2016-11-13] MEDS ORDERED: LIPITOR20 PO (20:08)
[2016-11-13] MEDS ORDERED: SIN25 PO (20:08)
[2016-11-13] MEDS ORDERED: ARICEPT10 PO (20:09)
[2016-11-13] MEDS ORDERED: ARICEPT5 PO (20:10)
[2016-11-13] MEDS ORDERED: EXELON9.5T TOP (20:10)
[2016-11-13] MEDS ORDERED: FLORASTOR250 MG PO (20:11)
[2016-11-13] MEDS ORDERED: DUONEB INH (20:13)
[2016-11-13] MEDS ORDERED: LEVOTHYROXIN75 MCG PO (20:13)
[2016-11-13] MEDS ORDERED: NAMENDA5 PEG (20:14)
[2016-11-13] MEDS ORDERED: LOP25 PEG (20:15)
[2016-11-13] MEDS ORDERED: ZYPREXA10 MG PO (20:15)
[2016-11-13] MEDS ORDERED: PACERONE100 MG PO (20:17)
[2016-11-13] MEDS ORDERED: EFFEX75 PO (20:18)
[2016-11-13] MEDS ORDERED: FLOMAX4 PO (20:18)
[2016-11-13] MEDS ORDERED: K-TABS10 MEQ PO (20:18)
[2016-11-13] MEDS ORDERED: RESTASIS OPH (20:18)
[2016-11-13] MEDS ORDERED: XARELTO20 MG PO (20:19)
[2016-12-31] MEDS ORDERED: PACERONE100 MG PEG (08:57)
[2016-12-31] MEDS ORDERED: FLOMAX4 PEG (08:57)
[2016-12-31] MEDS ORDERED: LOP25 PEG (08:57)
[2016-12-31] MEDS ORDERED: LIPITOR20 PEG (08:58)
[2016-12-31] MEDS ORDERED: ARICEPT10 PEG (08:58)
[2016-12-31] MEDS ORDERED: NAMENDA5 PEG (08:58)
[2016-12-31] MEDS ORDERED: ZYPREXA10 MG PEG (08:59)
[2016-12-31] MEDS ORDERED: XARELTO20 MG PEG (08:59)
[2016-12-31] MEDS ORDERED: SYN075 PEG (08:59)
[2016-12-31] MEDS ORDERED: SIN25 PEG (09:00)
[2016-12-31] MEDS ORDERED: EFFEXOR XR150 MG PEG (09:00)
[2016-12-31] MEDS ORDERED: RESTASIS OPH (09:00)
[2016-12-31] MEDS ORDERED: FLORASTOR250 MG PEG (09:01)
[2016-12-31] MEDS ORDERED: KCL20UDL PEG (09:01)
[2016-12-31] MEDS ORDERED: EXELON9.5T TOP (09:01)
[2016-12-31] MEDS ORDERED: ARICEPT5 PEG (09:01)
[2016-12-31] MEDS ORDERED: XANAX1 MG PEG (09:02)
[2016-12-31] MEDS ORDERED: X5 PEG (09:02)
[2016-12-31] MEDS ORDERED: HUMALOGPEN SC (09:02)
[2016-12-31] MEDS ORDERED: BROVANA15 MCG INH (09:02)
[2016-12-31] MEDS ORDERED: DUONEB INH (09:03)
[2016-12-31] MEDS ORDERED: OCEAN NAS (09:03)
[2016-12-31] MEDS ORDERED: CLEOCIN300 MG PO (09:03)
== END 2016-08-16 17:58 | DRG 698 ==
LOC: ER 11:42 → 6NO 18:06
PROVIDERS: Emergency Medicine; Hospitalist; Internal Medicine
DX: T83.511A Infection and inflammatory reaction due to indwelling urethral catheter, initial encounter (principal); A41.9 Sepsis, unspecified organism; E87.3 Alkalosis; J96.11 Chronic respiratory failure with hypoxia; I24.8 Other forms of acute ischemic heart disease; E87.0 Hyperosmolality and hypernatremia; I50.32 Chronic diastolic (congestive) heart failure; E86.0 Dehydration; I48.92 Unspecified atrial flutter; I48.0 Paroxysmal atrial fibrillation; R13.12 Dysphagia, oropharyngeal phase; E11.65 Type 2 diabetes mellitus with hyperglycemia; G20 Parkinson's disease; N39.0 Urinary tract infection, site not specified; K11.21 Acute sialoadenitis; Z93.1 Gastrostomy status; I25.10 Atherosclerotic heart disease of native coronary artery without angina pectoris; Z99.81 Dependence on supplemental oxygen; I35.0 Nonrheumatic aortic (valve) stenosis; D50.9 Iron deficiency anemia, unspecified; F32.9 Major depressive disorder, single episode, unspecified; E89.0 Postprocedural hypothyroidism; F02.80 Dementia in other diseases classified elsewhere, unspecified severity, without behavioral disturbance, psychotic disturbance, mood disturbance, and anxiety; R00.0 Tachycardia, unspecified; Z86.73 Personal history of transient ischemic attack (TIA), and cerebral infarction without residual deficits; Z79.4 Long term (current) use of insulin; Z86.718 Personal history of other venous thrombosis and embolism; Z85.46 Personal history of malignant neoplasm of prostate; Z95.1 Presence of aortocoronary bypass graft; Z87.01 Personal history of pneumonia (recurrent)
CPT/HCPCS: 36415; 71010; 80048; 80053; 80202; 81001; 82272; 82962; 83605; 83735; 83880; 84132; 84145; 84484; 85025; 85610; 85730; 86140; 86850; 86900; 86901; 86920; 87040; 87077; 87086; 87186; 87493; 87493-59; 93005; 94640; 96365; 96375; 97110-GP; 97162-GP; 99285; A9270-GY; G0463; J0692; J3370; P9016

== ENCOUNTER 2016-08-26 18:09 | Inpatient (IN) | payer BC ==
--- NOTE | ~2016-08-26 | IDS ---
Interim Discharge Summary [facility] [address] [place]. [address] NAME: GILBERTO DURAND SR, MD : 33 STATUS : ADM IN [facility]#: [id number] AGE: 80 ADM/REG DATE : 08/26/16 MR#: [id number] REPORT SERV DATE: 09/03/16 DICTATED BY: YAMILE GORDON DATE: 09/03/16 REPORT STATUS : Draft TRANSCRIBED BY: MODL DATE: 09/03/16 ADMISSION DATE: 08/26/2016 DISCHARGE DATE: Date of transferring this patient to my partner is 09/03/2016. DIAGNOSES: So far is 1. Acute on chronic respiratory failure-hypoxic respiratory failure probably secondary to a combination of healthcare associated pneumonia and aspiration pneumonia. For this, the patient has been on IV cefepime and vancomycin. The antibiotics were interrupted for just one day with IV Levaquin and the patient could not tolerate it and started breaking out in fevers, hence after the antibiotics were switched back to IV cefepime and vancomycin, his fevers have broke and he is doing a little better. 2. Catheter associated urinary tract infection-the patient however cannot tolerate being without Sanz, so Sanz has been reinserted as the patient has significant urinary retention. Without the Sanz. 3. Sepsis and lactic acidosis-resolved. 4. Acute kidney injury-resolved. 5. Chronic Parkinson's disease. 6. Chronic advanced dementia. 7. Nonverbal status. 8. Chronic PEG-dependent status. CODE STATUS: This patient is a DNR. However the patient does not want any hospice consulted at this time. The patient does want to continue artificial feeding via the PEG tube and does want to continue IV fluids and/or antibiotics if necessary and if it needs to treat the patient. BRIEF HOSPITAL COURSE: This patient is an unfortunate 80-year-old gentleman with history of chronic Parkinson's, chronic advanced dementia, bed-bound status, pretty much nonverbal, and PEG-dependent who lives at [facility] and in a DNR status, however, came in to the hospital as he was running temperature and in respiratory distress. The patient was started on antibiotics as his lactic acid levels were high and he was diagnosed with sepsis. The patient's acute respiratory failure resolved and he seemed to be doing well after just five days of intravenous antibiotics. I changed his antibiotics to Levaquin via his PEG tube on day #6. However within 24 to 48 hours, the patient started breaking out in a fever again and his leukocytosis worsened. Hence, I had to switch him back to IV cefepime and vancomycin. The plan is to complete a total of 14 day course of IV cefepime and vancomycin at this time as this patient does have healthcare associated pneumonia along with aspiration pneumonia. As of now, the patient has been doing well and his fevers have resolved. His WBC count is normal. His acute kidney injury has resolved. His overall status however remains poor, deconditioned and his code status continues to be DNR at this time. Plan on this patient would be to transfer him to [facility] back again once he finishes his IV antibiotics or this could be finished or completed at [facility] if necessary. I believe the patient has 6 more days of IV cefepime and vancomycin to complete Interim Discharge Summary [address] [address] NAME: GILBERTO DURAND SR, MD : 33 STATUS : ADM IN [facility]#: [id number] AGE: 80 ADM/REG DATE : 08/26/16 MR#: [id number] REPORT SERV DATE: 09/03/16 DICTATED BY: YAMILE GORDON DATE: 09/03/16 REPORT STATUS : Draft TRANSCRIBED BY: JEMMA DATE: 09/03/16 his 14 day course for the HCAP. This is my interim discharge summary and this patient will be taken over by my colleague on 09/04/2016. KRYSTYNA/JEMMA Yamile Gordon M.D. / [id number] CC: Yamile Gordon M.D.
--- NOTE | ~2016-08-26 | HP ---
History And Physical [place] [id number] [facility] [place]. [address] NAME: GILBERTO PIERRE Leeann ADAN MD : 33 STATUS : REG ER PAT#: [id number] AGE: 80 ADM/REG DATE : 08/26/16 MR#: [id number] REPORT SERV DATE: 08/26/16 DICTATED BY: ANAHI MEDINA DATE: 08/26/16 REPORT STATUS : Draft TRANSCRIBED BY: MODClifford DATE: 08/26/16 DATE OF ADMISSION: 08/26/2016 PRIMARY CARE PHYSICIAN: [facility]. CHIEF COMPLAINT: Fevers, concern for infection. 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 The patient was recently admitted to the Hospitalist Service earlier this month with sepsis secondary to parotitis. The patient also had dehydration with hypernatremia. , who is at bedside states that upon his discharge he was doing well. However, he did have some upper extremity swelling which she and the medical staff at [facility] attributed to the aggressive free water resuscitation he received here for his hypernatremia. He also developed what appears to be a right upper extremity cellulitis and has been placed on Keflex. states that she suspects he aspirated on Saturday of this week as someone left a glass of water in his room and within reach, and a nurse walked by his room and saw him visibly coughing and choking with some concern that the glass of water was either in his hand or she actually directly visualized him trying to drink from the glass. The patient developed worsening productive cough over the past week. The and staff at [facility] kept a close eye on him and he remained afebrile up until today when she came to the nursing facility and found him to be warm, listless, altered, as well as with worsening cough, and sputum production. Fever reportedly this morning was 103 degrees Fahrenheit. Initial evaluation in the emergency department notable for a white count of 25,400. He was febrile at 102.7, as well as tachycardia 124. Urinalysis is positive for urinary tract infection. Chest x-ray concerning for right lower lobe atelectasis versus infiltrate. The patient was started on cefepime and vancomycin and admitted to the Hospitalist Service. REVIEW OF SYSTEMS: A comprehensive system otherwise negative unless listed in history of present illness. PREVIOUS MEDICAL HISTORY: 1. Parkinson disease. 2. Advanced dementia. 3. Atrial fibrillation, on anticoagulation. 4. History of dysphagia and recurrent episodes of aspiration requiring PEG tube insertion and strict nothing by mouth status. 5. History of prior cerebrovascular accident. 6. History of parotitis. 7. Coronary artery disease with prior coronary artery bypass grafting. History And Physical [address] [address] NAME: GILBERTO PIERRE SR, MD : 33 STATUS : REG ER PAT#: [id number] AGE: 80 ADM/REG DATE : 08/26/16 MR#: [id number] REPORT SERV DATE: 08/26/16 DICTATED BY: ANAHI MEDINA DATE: 08/26/16 REPORT STATUS : Draft TRANSCRIBED BY: JEMMA DATE: 08/26/16 8. History of DVT. 9. Insulin-dependent diabetes mellitus type 2. 10.Iron deficiency. 11.Moderate aortic stenosis. 12.BPH. 13.Hypothyroidism. SURGICAL HISTORY: 1. Coronary artery bypass grafting. 2. Cholecystectomy. 3. TURP. 4. PEG insertion. ALLERGIES: 1. PENICILLIN. 2. SHELLFISH. 3. BENADRYL. HOME MEDICATIONS: 1. Tylenol 600 mg q.4 hours p.r.n. 2. Albuterol one inhalation b.i.d. 3. Amiodarone 100 mg daily. 4. Brovana 15 mcg b.i.d. 5. Lipitor 20 mg q.h.s. 6. Pulmicort one inhalation b.i.d. 7. Bumex 2 mg daily. 8. Carbidopa and levodopa half tab t.i.d. 9. Keflex 500 mg b.i.d. 10.Peridex rinse 15 mL q.4 hours. 11.Restasis eyedrops one b.i.d. 12.Levemir 5 units daily. 13.Insulin sliding scale. 14.Levothyroxine 75 mcg daily. 15.Melatonin 3 mg q.h.s. 16.Namenda 5 mg b.i.d. 17.Lopressor 25 mg b.i.d. 18.Zofran 4 mg q.4 hours p.r.n. 19.Xarelto 20 mg q.h.s. 20.1daily. 21.Florastor one tab daily. 22.Flomax 0.4 mg daily. 23.Effexor XR 75 mg daily. SOCIAL HISTORY: He is a former heavy alcohol user. Denies the tobacco or illicits. Resident of [facility]. FAMILY MEDICAL HISTORY: Father with heart disease. Mother of old age. Family History And Physical [address] [address] NAME: GILBERTO PIERRE SR, MD : 33 STATUS : REG ER PAT#: [id number] AGE: 80 ADM/REG DATE : 08/26/16 MR#: [id number] REPORT SERV DATE: 08/26/16 DICTATED BY: ANAHI MEDINA DATE: 08/26/16 REPORT STATUS : Draft TRANSCRIBED BY: JEMMA DATE: 08/26/16 history of diabetes. LABS AND IMAGIN. White count is 25.4, hemoglobin is 12.1, hematocrit is 39.6, platelet count of 289, 5% bands with a left shift. INR 1.3. 2. Sodium 146, potassium 3.4, chloride 103, carbon dioxide 36, BUN 41, creatinine 1.21, glucose is 199, calcium is 9.2. Protein 8.0, bilirubin is 1.0, albumin is 3.0, ALT is 24, AST 17, alkaline phosphatase is 54. 3. Troponin is 0.13. 4. Lactic acid 2.4. 5. Urinalysis: Spec gravity was 1.017, cloudy with large blood, large leukocyte esterase, negative nitrites, 64 red bloods, and greater than 182 white blood cells per high power field with many bacteria. 6. ABG; pH is 7.52, pCO2 is 42, pO2 is 77, bicarb is 34, saturating 96% on 4 L per nasal cannula. 7. Chest x-ray per my review shows some right lower lobe infiltrate versus atelectasis, largely unchanged from prior chest x-ray. EKG per my review shows sinus tachycardia with heart rates in the 120s. No evidence of any acute ischemia or infarction. PHYSICAL EXAMINATION: VITAL SIGNS: Temperature is 102.7 degrees Fahrenheit, pulse is 124, respirations 16, saturating 94% on 4 L per nasal cannula, blood pressure 139/81. On recheck, blood pressure is now 136/53, pulse of 99. GENERAL: The patient is a chronically ill-appearing, elderly male. at bedside. He is somewhat sedated and lethargic, but will awaken to verbal stimuli and answer some questions. HEENT: Atraumatic and normocephalic. Very dry mucous membranes. Pupils are equal, round, reactive. NECK: No jugular venous distention. No carotid bruits. CARDIAC: Irregularly irregular rate and rhythm. A 2/6 systolic murmur heard best over the left lower sternal border. LUNGS: On oxygen, but no respiratory distress. Does have some decreased breath sounds at bases as well as some possible right lower lobe crackles versus rhonchi. ABDOMEN: PEG tube is in place. No rebound, guarding, or rigidity. Soft, nontender. LOWER EXTREMITIES: Warm, perfused. No cyanosis, clubbing, or edema. SKIN: Warm and dry. PSYCH: Sedated and lethargic. NEURO: Limited, given the patient's altered mental status as well as dementia, but will awaken to verbal stimuli. Answers some questions. ASSESSMENT: Mr. Pierre is an 80-year-old gentleman, who presents with fevers at [facility] with a concern for aspiration event earlier in the week. He is now found to have evidence of sepsis as well as acute kidney injury, catheter-associated urinary tract infection, and possible aspiration pneumonia. Problem list: 1. Possible aspiration pneumonia. History And Physical [address] [address] NAME: GILBERTO PIERRE SR CUNHA : 33 STATUS : REG ER PAT#: [id number] AGE: 80 ADM/REG DATE : 08/26/16 MR#: [id number] REPORT SERV DATE: 08/26/16 DICTATED BY: ANAHI MEDINA DATE: 08/26/16 REPORT STATUS : Draft TRANSCRIBED BY: MODL DATE: 08/26/16 2. Catheter-associated urinary tract infection. 3. Sepsis. 4. Acute kidney injury. 5. Elevated troponin level. 6. Hypokalemia. 7. History of dysphagia with recurrent aspiration events. PLAN: 1. Possible aspiration pneumonia. We will treat for possible aspiration with vancomycin, cefepime, and IV Flagyl. Follow up blood and sputum cultures. Obtain a CT of the chest to confirm source of sepsis. 2. Catheter-associated urinary tract infection. We will remove Sanz catheter. Treat with IV antibiotics. Follow up urine culture. 3. Sepsis. The patient meets criteria with tachycardia, leukocytosis, as well as fevers. His lactic acid is 2.4. We will recheck in three hours. Aggressive IV fluid hydration as well as antibiotics. Follow up urine, blood, and sputum cultures. 4. Acute kidney injury. On aggressive IV fluid hydration. Holding Bumex as well as an other nephrotoxic medications for elevated troponin level. The patient is unable to tell me if he is having any chest pain, changed altered mental status. EKG is nonischemic. It appears the patient always has some mild elevated troponin elevation when he comes in with underlying infection. I will trend these out. 5. Aspiration with dysphagia. Strict nothing by mouth status. Nutrition consultation for assistance with free water flushes as well as tube feed administration. 6. DVT prophylaxis. Already on anticoagulation. CODE STATUS: Per discussion with , he is to be a DO NOT RESUSCITATE. We will consult Palliative Care for further end of life discussions as it appears the patient has had multiple recent admissions to our service over the last six months. EUSEBIO/JEMMA Anahi Medina MD / [id number]
--- NOTE | ~2016-08-26 | DS ---
Discharge Summary [place] [address] [place]. [address] NAME: GILBERTO PIERRE SR CUNHA : 33 STATUS : DIS IN PAT#: [id number] AGE: 80 ADM/REG DATE : 08/26/16 MR#: [id number] REPORT SERV DATE: 09/12/16 DICTATED BY: THERESA REED DATE: 09/11/16 REPORT STATUS : Draft TRANSCRIBED BY: MODClifford DATE: 09/11/16 ADMISSION DATE: 08/26/2016 DISCHARGE DATE: 09/10/2016 CONSULTATION: None. DISCHARGE DIAGNOSES: 1. Acute on chronic hypoxic respiratory failure secondary to healthcare-associated pneumonia. 2. Catheter-associated urinary tract infection. 3. Severe sepsis with lactic acidosis. 4. History of Parkinson disease. 5. History of advanced dementia. 6. 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 7. Acute kidney injury. 8. Elevated troponin secondary to demand ischemia. 9. History of recurrent aspiration due to oropharyngeal dysphagia. DISCHARGE CONDITION: Stable. INVASIVE PROCEDURE: None. HISTORY OF PRESENT ILLNESS: For detailed HPI, please make reference to Dr. Gilberto Hammer's dictation on 08/26/2016. 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 It was subsequently dictated at the [facility]. Of note, the patient was noted to have multiple choking episodes at the care home facility. Also noted to have cough, shortness of breath. On the day of presentation, he was noted to have a temperature of 103 degrees Fahrenheit, hence was brought to the emergency room for further evaluation. In the emergency room, vital signs: Temperature 102.7, pulse 124 beats per minute, respiratory rate 16, saturating 94% on 4 L of oxygen, blood pressure was 139/81. LABORATORY DATA: Significant for WBC of 25.4, hemoglobin of 12.1, hematocrit 36.9, platelets of 289. INR 1.3. Sodium was 146, creatinine 1.2, lactic acid 2.4. Urinalysis showed large leukocyte esterase, wbc 182 per high powered field and many bacteria present. Chest x-ray showed right lower lobe infiltrate concerning for pneumonia. An assessment of severe sepsis secondary to catheter-associated urinary tract infection and pneumonia was made in the ER. The patient was admitted to the Hospitalist Service for further management. HOSPITAL COURSE: 1. Severe sepsis secondary to CAUTI and HCAP. Blood cultures were taken. Urine cultures obtained. Sputum cultures also obtained. The patient was started on broad-spectrum antibiotics. Blood culture yielded Enterococcus faecalis group D in one of two bottles Discharge Summary [address] [address] NAME: GILBERTO PIERRE SR, MD : 33 STATUS : DIS IN PAT#: [id number] AGE: 80 ADM/REG DATE : 08/26/16 MR#: [id number] REPORT SERV DATE: 09/12/16 DICTATED BY: THERESA REED DATE: 09/11/16 REPORT STATUS : Draft TRANSCRIBED BY: JEMMA DATE: 09/11/16 likely due to contaminant. Urine culture grew Nanntete tropicalis and CAUTI as a definitive source of UTI was less likely. Sputum culture yielded no definitive growth. A CT of the chest was obtained that confirmed the presence of dense infiltrate in both lower lung consistent with pneumonia, hence definitive source of infection during this admission was HCAP versus recurrent aspiration pneumonia. The patient was continued on broad-spectrum antibiotics to cover for HCAP. The patient's oxygen requirement continued to improve. The patient's white blood cell count trended down to within normal limits. The patient consistently remained afebrile. Prior to discharge, the patient had completed approximately 10 days of IV antibiotics. 2. Recurrent aspiration due to oropharyngeal dysphagia. An extensive discussion was held with the family as regard to the recurrent aspiration risk and needing recurrent hospitalization during multiple discussions about initiation of hospice given ongoing risks for recurrent hospitalization and pneumonia. Family declined hospice at this point, hence the patient was discharged to SNF. 3. PEG tube feeding. The patient continued to tolerate enteric alimentation throughout the course of this admission. No residue was noted. The patient was advised to continue enteric feeding at residential. Elevated troponin secondary to demand ischemia. The patient's elevated troponin likely related to severe sepsis. No chest pain. No EKG of ST changes during the course of this admission. The patient's troponin gradually trended down without any episode of chest pain. The patient was advised to continue follow up with primary director of neighborhood service center as an outpatient. DISCHARGE ACTIVITY: As tolerated. DISCHARGED DIET: PEG tube feeds. DISCHARGE DISPOSITION: SNF. Greater than 35 minutes was used to prepare this patient's discharge, reconcile medication, and advised the patient on discharge plans and followup. DICTATED BY: Theresa Reed MD IOO/MODL Theresa Reed MD / [id number] CC: Theresa Reed MD
[2016-08-26 17:41] LABS: BASOPHILS 0.2 %; BASOPHILS ABSOLUTE 0.04 10/3/uL (0.0-0.16); EOSINOPHILS 0 %; IMMATURE GRANULOCYTES 0.4 %; LYMPHOCYTES 3.9 %; LYMPHOCYTES ABSOLUTE 0.99 10/3/uL (0.67-4.30); MEAN CORPUS HGB CONC 30.6 g/dL (32.0-36.0); MEAN CORPUSCULAR HEMOGLOB 28.7 pg (26.0-34.0); MEAN CORPUSCULAR VOLUME 94.1 fL (80-100); MEAN PLATELET VOLUME 10.5 fL (9.2-13.0); MONOCYTES 2.2 %; MONOCYTES ABSOLUTE 0.55 10/3/uL (0.21-1.20); NEUTROPHILS 93.3 %; NEUTROPHILS ABSOLUTE 23.69 10/3/uL (2.02-8.40); PLATELET COUNT 299 10/3/uL (150-400); RBC DISTRIBUTION WIDTH 18.6 % (12.0-16.0)
[2016-08-26 17:43] LABS: ER CBC TAT 0 Hrs 08 Mins; HEMATOCRIT 39.6 % (40.0-51.0); HEMOGLOBIN 12.1 g/dL (13.6-17.8); RED CELL COUNT 4.21 10/6/uL (4.7-6.1); WHITE BLOOD CELLS 25.4 10/3/uL (4.5-10.5)
[2016-08-26 17:44] LABS: IMMATURE GRANULOCYTES ABSOLUTE 0.09 10/3/uL (0.0-0.11); MANUAL DIFF NO %
[2016-08-26 17:48] LABS: INTERNATIONAL NORMAL RATI 1.3 UNITS (-); PARTIAL THROMBO TIME 25.7 SEC (22.5-37.2); PROTIME (NOT ORD) 16.5 SEC (12.0-14.5)
[2016-08-26 17:57] LABS: ALKALINE PHOSPHATASE 54 U/L (45-117); CALCIUM, SERUM 9.2 MG/DL (8.5-10.4); CHLORIDE, SERUM 103 MMOL/L (96-112); LACTATE 2.4 MMOL/L (0.3-2.4); SGOT(AST) 17 U/L (5-40); SGPT(ALT) 24 U/L (5-65); SODIUM, SERUM 146 MMOL/L (135-148)
[2016-08-26 18:07] LABS: A/G RATIO 0.6 (0.7-1.9); BAND NEUTROPHILS 5 %; BUN (BLOOD UREA NITROGEN) 41 MG/DL (6-23); CO2 (CARBON DIOXIDE) 36 MMOL/L (24-34); CREATININE 1.21 MG/DL (0.70-1.30); ER DIFF TAT 0 Hrs 32 Mins; GFR AFRICAN AMERICAN 64 ML/MIN (>=60); GFR NON AFRICAN AMERICAN 55 ML/MIN (>=60); GLUCOSE, SERUM 199 MG/DL (60-99); LYMPHOCYTES 2 %; LYMPHOCYTES ABSOLUTE (CALC) 0.51 10/3/uL (0.67-4.30); MONOCYTES 3 %; MONOCYTES ABSOLUTE (CALC) 0.76 10/3/uL (0.21-1.20); NEUTROPHILS ABSOLUTE (CALC) 24.13 10/3/uL (2.02-8.40); PLATELET ESTIMATE ADQ (ADEQUATE); POTASSIUM, SERUM 3.4 MMOL/L (3.5-5.3); SEGMENTED NEUTROPHIL (0) 90 %; TOTAL NUCLEATED CELLS 100; TROPONIN I 0.13 NG/ML (<0.05)
[2016-08-26 18:08] LABS: RBC MORPHOLOGY NORM (NORMAL)
[~2016-08-26 18:09] MED LIST changes: +8 HOUR650 MG PEG; +EFFEXXR75 PEG; +FLOMAX4 PEG; +ZOFRAN ODT4 MG PEG
[2016-08-26] MEDS ORDERED: PACERONE100 MG PEG (18:24)
[2016-08-26] MEDS ORDERED: SIN25 PEG (18:24)
[2016-08-26] MEDS ORDERED: HUMALOG SC (18:25)
[2016-08-26] MEDS ORDERED: FLORASTOR250 MG PEG (18:25)
[2016-08-26] MEDS ORDERED: 8 HOUR650 MG PEG (18:26)
[2016-08-26] MEDS ORDERED: EFFEXXR75 PEG (18:27)
[2016-08-26] MEDS ORDERED: XARELTO20 MG PEG (18:27)
[2016-08-26] MEDS ORDERED: RESTASIS OPH (18:28)
[2016-08-26] MEDS ORDERED: NAMENDA5 PEG (18:28)
[2016-08-26] MEDS ORDERED: LEVEMIR SC (18:28)
[2016-08-26] MEDS ORDERED: EXELON9.5T TOP (18:29)
[2016-08-26] MEDS ORDERED: LOP25 PEG (18:30)
[2016-08-26] MEDS ORDERED: LIPITOR20 PEG (18:33)
[2016-08-26] MEDS ORDERED: MELA3 PEG (18:33)
[2016-08-26] MEDS ORDERED: FLOMAX4 PEG (18:34)
[2016-08-26] MEDS ORDERED: BUM2 PEG (18:34)
[2016-08-26] MEDS ORDERED: PERIDEX MT (18:35)
[2016-08-26] MEDS ORDERED: BROVANA15 MCG INH (18:35)
[2016-08-26] MEDS ORDERED: PULRESP1 INH (18:35)
[2016-08-26] MEDS ORDERED: LEVOTHYROXIN75 MCG PEG (18:36)
[2016-08-26] MEDS ORDERED: ZOFRAN ODT4 MG PO (18:36)
[2016-08-26] MEDS ORDERED: K500 PEG (18:37)
[2016-08-26] MEDS ORDERED: ALBUTEROL0.083 % INH (18:38)
[2016-08-26 19:21] LABS: CARBOXYHEMOGLOBIN 1.3 % (0-3); DEVICE NRB; HCO3 (ACTUAL BICARBONATE) 33.8 MEQ/L (23-27); HEMOBLOGIN CONTENT 11.8 G/DL (14-18); INSTRUMENT SERIAL # 8087; METHEMOGLOBIN 0.4 % (0-3); O2 CONTENT 15.7 VOL% (18-24); PCO2 (CO2 TENSION) 42 MMHG (35-45); PO2 (O2 TENSION) 78 MMHG (79-93); SAMPLE Arterial; pH 7.52 (7.37-7.43)
[2016-08-26 19:25] LABS: ASCORBIC ACID (UR NOT ORDER) 40 (NEG); BILIRUBIN, URINE NEGATIVE (NEG); ER URINALYSIS TAT 0 Hrs 13 Mins; KETONE, URINE NEGATIVE (NEG); LEUKOCYTE ESTERASE(NOT OR LARGE (NEG); NITRITE (URINE) NEG (NEG)
[2016-08-26 19:26] LABS: WBC (NOT ORDERED) (RFLEX) > 182 (0-5)
[2016-08-27 02:00] LABS: CPK 27 U/L (0-200)
[2016-08-27 02:01] LABS: CK-MB 0.5 NG/ML; TROPONIN I 0.16 NG/ML (<0.05)
[2016-08-27 02:44] LABS: CREATININE, URINE 96.8 MG/DL
[2016-08-27 08:42] LABS: HEMOGLOBIN 9.8 g/dL (13.6-17.8); MEAN CORPUS HGB CONC 29.6 g/dL (32.0-36.0); MEAN CORPUSCULAR HEMOGLOB 28.4 pg (26.0-34.0); MEAN CORPUSCULAR VOLUME 95.9 fL (80-100); MEAN PLATELET VOLUME 10.2 fL (9.2-13.0); PLATELET COUNT 228 10/3/uL (150-400); RBC DISTRIBUTION WIDTH 18.6 % (12.0-16.0); RED CELL COUNT 3.45 10/6/uL (4.7-6.1); WHITE BLOOD CELLS 17.4 10/3/uL (4.5-10.5)
[2016-08-27 08:44] LABS: HEMATOCRIT 33.1 % (40.0-51.0); MANUAL DIFF YES %
[2016-08-27 09:22] LABS: ANISOCYTOSIS 1+ (5-10/OIF) (0-5/OIF); BAND NEUTROPHILS 11 %; HYPOCHROMIA 1+ (3-10/OIF) (0-2/OIF); LYMPHOCYTES 9 %; LYMPHOCYTES ABSOLUTE (CALC) 1.57 10/3/uL (0.67-4.30); MONOCYTES 4 %; NEUTROPHILS ABSOLUTE (CALC) 15.14 10/3/uL (2.02-8.40); PLATELET ESTIMATE ADQ (ADEQUATE); SEGMENTED NEUTROPHIL (0) 76 %; TOTAL NUCLEATED CELLS 100
[2016-08-27 09:42] LABS: CALCIUM, SERUM 8.5 MG/DL (8.5-10.4); CHLORIDE, SERUM 110 MMOL/L (96-112); CO2 (CARBON DIOXIDE) 35 MMOL/L (24-34); CPK 29 U/L (0-200); CREATININE 0.72 MG/DL (0.70-1.30); GFR AFRICAN AMERICAN 101 ML/MIN (>=60); GFR NON AFRICAN AMERICAN 87 ML/MIN (>=60); POTASSIUM, SERUM 3.2 MMOL/L (3.5-5.3); SODIUM, SERUM 147 MMOL/L (135-148)
[2016-08-27 09:43] LABS: ALBUMIN 2.3 G/DL (3.5-5.0); BUN (BLOOD UREA NITROGEN) 36 MG/DL (6-23); CK-MB 0.7 NG/ML; GLUCOSE, SERUM 148 MG/DL (60-99); PHOSPHORUS, SERUM 2.2 MG/DL (2.5-4.5); TROPONIN I 0.14 NG/ML (<0.05)
[2016-08-28 05:38] LABS: BASOPHILS 0.3 %; BASOPHILS ABSOLUTE 0.03 10/3/uL (0.0-0.16); EOSINOPHILS 0 %; HEMOGLOBIN 8.9 g/dL (13.6-17.8); IMMATURE GRANULOCYTES 0.2 %; IMMATURE GRANULOCYTES ABSOLUTE 0.02 10/3/uL (0.0-0.11); LYMPHOCYTES 5.4 %; LYMPHOCYTES ABSOLUTE 0.64 10/3/uL (0.67-4.30); MEAN CORPUSCULAR HEMOGLOB 28.7 pg (26.0-34.0); MEAN CORPUSCULAR VOLUME 95.8 fL (80-100); MEAN PLATELET VOLUME 10.5 fL (9.2-13.0); MONOCYTES 5.3 %; MONOCYTES ABSOLUTE 0.63 10/3/uL (0.21-1.20); NEUTROPHILS 88.8 %; NEUTROPHILS ABSOLUTE 10.59 10/3/uL (2.02-8.40); PLATELET COUNT 179 10/3/uL (150-400); RBC DISTRIBUTION WIDTH 18.1 % (12.0-16.0); WHITE BLOOD CELLS 11.9 10/3/uL (4.5-10.5)
[2016-08-28 05:39] LABS: HEMATOCRIT 29.7 % (40.0-51.0); MANUAL DIFF NO %
[2016-08-28 05:43] LABS: CALCIUM, SERUM 8.7 MG/DL (8.5-10.4); CHLORIDE, SERUM 109 MMOL/L (96-112); CO2 (CARBON DIOXIDE) 34 MMOL/L (24-34); CREATININE 0.73 MG/DL (0.70-1.30); GFR AFRICAN AMERICAN 100 ML/MIN (>=60); GFR NON AFRICAN AMERICAN 86 ML/MIN (>=60); GLUCOSE, SERUM 161 MG/DL (60-99); SODIUM, SERUM 149 MMOL/L (135-148)
[2016-08-28 05:46] LABS: POTASSIUM, SERUM 2.9 MMOL/L (3.5-5.3)
[2016-08-28 05:47] LABS: BUN (BLOOD UREA NITROGEN) 31 MG/DL (6-23)
[2016-08-29 07:09] LABS: BASOPHILS 0.2 %; BASOPHILS ABSOLUTE 0.02 10/3/uL (0.0-0.16); EOSINOPHILS 0.6 %; EOSINOPHILS ABSOLUTE 0.06 10/3/uL (0.0-0.53); HEMATOCRIT 28.7 % (40.0-51.0); HEMOGLOBIN 8.8 g/dL (13.6-17.8); IMMATURE GRANULOCYTES 0.3 %; IMMATURE GRANULOCYTES ABSOLUTE 0.03 10/3/uL (0.0-0.11); LYMPHOCYTES 6.8 %; LYMPHOCYTES ABSOLUTE 0.65 10/3/uL (0.67-4.30); MEAN CORPUS HGB CONC 30.7 g/dL (32.0-36.0); MEAN CORPUSCULAR HEMOGLOB 29.1 pg (26.0-34.0); MEAN PLATELET VOLUME 10.8 fL (9.2-13.0); MONOCYTES 6.2 %; MONOCYTES ABSOLUTE 0.59 10/3/uL (0.21-1.20); NEUTROPHILS 85.9 %; NEUTROPHILS ABSOLUTE 8.22 10/3/uL (2.02-8.40); PLATELET COUNT 168 10/3/uL (150-400); RED CELL COUNT 3.02 10/6/uL (4.7-6.1); WHITE BLOOD CELLS 9.6 10/3/uL (4.5-10.5)
[2016-08-29 07:11] LABS: MANUAL DIFF NO %
[2016-08-29 07:24] LABS: CALCIUM, SERUM 8.4 MG/DL (8.5-10.4); CHLORIDE, SERUM 112 MMOL/L (96-112); CO2 (CARBON DIOXIDE) 34 MMOL/L (24-34); CREATININE 0.69 MG/DL (0.70-1.30); GFR AFRICAN AMERICAN 102 ML/MIN (>=60); GFR NON AFRICAN AMERICAN 88 ML/MIN (>=60); SODIUM, SERUM 150 MMOL/L (135-148)
[2016-08-29 07:26] LABS: BUN (BLOOD UREA NITROGEN) 23 MG/DL (6-23); GLUCOSE, SERUM 125 MG/DL (60-99); POTASSIUM, SERUM 2.9 MMOL/L (3.5-5.3)
[2016-08-30 07:08] LABS: BASOPHILS 0.3 %; BASOPHILS ABSOLUTE 0.02 10/3/uL (0.0-0.16); EOSINOPHILS ABSOLUTE 0.08 10/3/uL (0.0-0.53); HEMATOCRIT 28.2 % (40.0-51.0); HEMOGLOBIN 8.5 g/dL (13.6-17.8); IMMATURE GRANULOCYTES 0.5 %; IMMATURE GRANULOCYTES ABSOLUTE 0.04 10/3/uL (0.0-0.11); LYMPHOCYTES 12.1 %; LYMPHOCYTES ABSOLUTE 0.96 10/3/uL (0.67-4.30); MANUAL DIFF NO %; MEAN CORPUS HGB CONC 30.1 g/dL (32.0-36.0); MEAN CORPUSCULAR HEMOGLOB 28.9 pg (26.0-34.0); MEAN CORPUSCULAR VOLUME 95.9 fL (80-100); MEAN PLATELET VOLUME 10.7 fL (9.2-13.0); MONOCYTES 6.2 %; MONOCYTES ABSOLUTE 0.49 10/3/uL (0.21-1.20); NEUTROPHILS 79.9 %; NEUTROPHILS ABSOLUTE 6.33 10/3/uL (2.02-8.40); PLATELET COUNT 165 10/3/uL (150-400); RBC DISTRIBUTION WIDTH 17.8 % (12.0-16.0); RED CELL COUNT 2.94 10/6/uL (4.7-6.1); WHITE BLOOD CELLS 7.9 10/3/uL (4.5-10.5)
[2016-08-30 07:23] LABS: BUN (BLOOD UREA NITROGEN) 20 MG/DL (6-23); CALCIUM, SERUM 8.2 MG/DL (8.5-10.4); CHLORIDE, SERUM 116 MMOL/L (96-112); CO2 (CARBON DIOXIDE) 32 MMOL/L (24-34); CREATININE 0.67 MG/DL (0.70-1.30); GFR AFRICAN AMERICAN 104 ML/MIN (>=60); GFR NON AFRICAN AMERICAN 89 ML/MIN (>=60); GLUCOSE, SERUM 142 MG/DL (60-99); POTASSIUM, SERUM 3.4 MMOL/L (3.5-5.3); SODIUM, SERUM 150 MMOL/L (135-148)
[2016-08-31 05:18] LABS: BASOPHILS 0.2 %; BASOPHILS ABSOLUTE 0.02 10/3/uL (0.0-0.16); EOSINOPHILS 0.7 %; EOSINOPHILS ABSOLUTE 0.07 10/3/uL (0.0-0.53); HEMATOCRIT 30.4 % (40.0-51.0); HEMOGLOBIN 8.9 g/dL (13.6-17.8); IMMATURE GRANULOCYTES 0.5 %; IMMATURE GRANULOCYTES ABSOLUTE 0.05 10/3/uL (0.0-0.11); LYMPHOCYTES 7.5 %; MEAN CORPUS HGB CONC 29.3 g/dL (32.0-36.0); MEAN CORPUSCULAR HEMOGLOB 28.4 pg (26.0-34.0); MEAN CORPUSCULAR VOLUME 97.1 fL (80-100); MEAN PLATELET VOLUME 10.8 fL (9.2-13.0); MONOCYTES 5.6 %; NEUTROPHILS 85.5 %; NEUTROPHILS ABSOLUTE 9.11 10/3/uL (2.02-8.40); PLATELET COUNT 179 10/3/uL (150-400); RED CELL COUNT 3.13 10/6/uL (4.7-6.1); WHITE BLOOD CELLS 10.7 10/3/uL (4.5-10.5)
[2016-08-31 05:21] LABS: MANUAL DIFF NO %
[2016-08-31 05:28] LABS: BUN (BLOOD UREA NITROGEN) 22 MG/DL (6-23); CALCIUM, SERUM 8.7 MG/DL (8.5-10.4); CHLORIDE, SERUM 117 MMOL/L (96-112); CO2 (CARBON DIOXIDE) 30 MMOL/L (24-34); CREATININE 0.67 MG/DL (0.70-1.30); GFR AFRICAN AMERICAN 104 ML/MIN (>=60); GFR NON AFRICAN AMERICAN 89 ML/MIN (>=60); GLUCOSE, SERUM 151 MG/DL (60-99); POTASSIUM, SERUM 3.6 MMOL/L (3.5-5.3); SODIUM, SERUM 151 MMOL/L (135-148)
[2016-09-01 05:01] LABS: BASOPHILS 0.2 %; BASOPHILS ABSOLUTE 0.02 10/3/uL (0.0-0.16); EOSINOPHILS 0.8 %; EOSINOPHILS ABSOLUTE 0.08 10/3/uL (0.0-0.53); HEMATOCRIT 30.3 % (40.0-51.0); IMMATURE GRANULOCYTES 0.5 %; IMMATURE GRANULOCYTES ABSOLUTE 0.05 10/3/uL (0.0-0.11); LYMPHOCYTES 10.9 %; LYMPHOCYTES ABSOLUTE 1.09 10/3/uL (0.67-4.30); MEAN CORPUS HGB CONC 29.7 g/dL (32.0-36.0); MEAN CORPUSCULAR HEMOGLOB 28.8 pg (26.0-34.0); MEAN CORPUSCULAR VOLUME 97.1 fL (80-100); MEAN PLATELET VOLUME 10.8 fL (9.2-13.0); MONOCYTES 5.5 %; MONOCYTES ABSOLUTE 0.55 10/3/uL (0.21-1.20); NEUTROPHILS 82.1 %; NEUTROPHILS ABSOLUTE 8.25 10/3/uL (2.02-8.40); PLATELET COUNT 177 10/3/uL (150-400); RBC DISTRIBUTION WIDTH 18.2 % (12.0-16.0); RED CELL COUNT 3.12 10/6/uL (4.7-6.1)
[2016-09-01 05:08] LABS: MANUAL DIFF NO %
[2016-09-01 05:19] LABS: BUN (BLOOD UREA NITROGEN) 22 MG/DL (6-23); CALCIUM, SERUM 8.5 MG/DL (8.5-10.4); CHLORIDE, SERUM 117 MMOL/L (96-112); CO2 (CARBON DIOXIDE) 31 MMOL/L (24-34); CREATININE 0.65 MG/DL (0.70-1.30); GFR AFRICAN AMERICAN 105 ML/MIN (>=60); GFR NON AFRICAN AMERICAN 91 ML/MIN (>=60); GLUCOSE, SERUM 135 MG/DL (60-99); POTASSIUM, SERUM 3.4 MMOL/L (3.5-5.3); SODIUM, SERUM 153 MMOL/L (135-148)
[2016-09-02 06:32] LABS: BASOPHILS 0.3 %; BASOPHILS ABSOLUTE 0.03 10/3/uL (0.0-0.16); EOSINOPHILS 0.1 %; EOSINOPHILS ABSOLUTE 0.01 10/3/uL (0.0-0.53); HEMATOCRIT 32.9 % (40.0-51.0); HEMOGLOBIN 9.7 g/dL (13.6-17.8); IMMATURE GRANULOCYTES 0.4 %; IMMATURE GRANULOCYTES ABSOLUTE 0.05 10/3/uL (0.0-0.11); LYMPHOCYTES 8.8 %; LYMPHOCYTES ABSOLUTE 0.98 10/3/uL (0.67-4.30); MANUAL DIFF NO %; MEAN CORPUS HGB CONC 29.5 g/dL (32.0-36.0); MEAN CORPUSCULAR HEMOGLOB 28.4 pg (26.0-34.0); MEAN CORPUSCULAR VOLUME 96.5 fL (80-100); MONOCYTES 7.1 %; MONOCYTES ABSOLUTE 0.79 10/3/uL (0.21-1.20); NEUTROPHILS 83.3 %; NEUTROPHILS ABSOLUTE 9.33 10/3/uL (2.02-8.40); PLATELET COUNT 240 10/3/uL (150-400); RBC DISTRIBUTION WIDTH 18.5 % (12.0-16.0); RED CELL COUNT 3.41 10/6/uL (4.7-6.1); WHITE BLOOD CELLS 11.2 10/3/uL (4.5-10.5)
[2016-09-02 06:43] LABS: BUN (BLOOD UREA NITROGEN) 21 MG/DL (6-23); CALCIUM, SERUM 8.8 MG/DL (8.5-10.4); CHLORIDE, SERUM 115 MMOL/L (96-112); CO2 (CARBON DIOXIDE) 32 MMOL/L (24-34); CREATININE 0.87 MG/DL (0.70-1.30); GFR AFRICAN AMERICAN 93 ML/MIN (>=60); GFR NON AFRICAN AMERICAN 80 ML/MIN (>=60); GLUCOSE, SERUM 167 MG/DL (60-99); SODIUM, SERUM 151 MMOL/L (135-148)
[2016-09-02 16:20] LABS: ASCORBIC ACID (UR NOT ORDER) 40 (NEG); BILIRUBIN, URINE NEGATIVE (NEG); KETONE, URINE NEGATIVE (NEG); LEUKOCYTE ESTERASE(NOT OR LARGE (NEG)
[2016-09-02 16:21] LABS: WBC (NOT ORDERED) (RFLEX) > 182 (0-5)
[2016-09-03 06:04] LABS: HEMOGLOBIN 8.7 g/dL (13.6-17.8); MEAN CORPUS HGB CONC 29.5 g/dL (32.0-36.0); MEAN CORPUSCULAR HEMOGLOB 28.6 pg (26.0-34.0); MEAN PLATELET VOLUME 10.5 fL (9.2-13.0); PLATELET COUNT 190 10/3/uL (150-400); RBC DISTRIBUTION WIDTH 18.5 % (12.0-16.0); RED CELL COUNT 3.04 10/6/uL (4.7-6.1); WHITE BLOOD CELLS 9.6 10/3/uL (4.5-10.5)
[2016-09-03 06:13] LABS: HEMATOCRIT 29.5 % (40.0-51.0); MANUAL DIFF YES %
[2016-09-03 06:17] LABS: BUN (BLOOD UREA NITROGEN) 20 MG/DL (6-23); CALCIUM, SERUM 8.7 MG/DL (8.5-10.4); CHLORIDE, SERUM 114 MMOL/L (96-112); CO2 (CARBON DIOXIDE) 31 MMOL/L (24-34); CREATININE 0.75 MG/DL (0.70-1.30); GFR AFRICAN AMERICAN 99 ML/MIN (>=60); GFR NON AFRICAN AMERICAN 85 ML/MIN (>=60); GLUCOSE, SERUM 154 MG/DL (60-99); POTASSIUM, SERUM 3.9 MMOL/L (3.5-5.3); SODIUM, SERUM 150 MMOL/L (135-148)
[2016-09-03 06:39] LABS: ANISOCYTOSIS 1+ (5-10/OIF) (0-5/OIF); BAND NEUTROPHILS 3 %; LYMPHOCYTES 8 %; LYMPHOCYTES ABSOLUTE (CALC) 0.77 10/3/uL (0.67-4.30); MONOCYTES 5 %; MONOCYTES ABSOLUTE (CALC) 0.48 10/3/uL (0.21-1.20); NEUTROPHILS ABSOLUTE (CALC) 8.35 10/3/uL (2.02-8.40); PLATELET ESTIMATE ADQ (ADEQUATE); SEGMENTED NEUTROPHIL (0) 84 %; TOTAL NUCLEATED CELLS 100
[2016-09-04 04:59] LABS: HEMATOCRIT 28.4 % (40.0-51.0); HEMOGLOBIN 8.4 g/dL (13.6-17.8); MANUAL DIFF YES %; MEAN CORPUS HGB CONC 29.6 g/dL (32.0-36.0); MEAN CORPUSCULAR HEMOGLOB 28.5 pg (26.0-34.0); MEAN CORPUSCULAR VOLUME 96.3 fL (80-100); MEAN PLATELET VOLUME 10.7 fL (9.2-13.0); PLATELET COUNT 193 10/3/uL (150-400); RBC DISTRIBUTION WIDTH 18.5 % (12.0-16.0); RED CELL COUNT 2.95 10/6/uL (4.7-6.1); WHITE BLOOD CELLS 10.2 10/3/uL (4.5-10.5)
[2016-09-04 05:08] LABS: BUN (BLOOD UREA NITROGEN) 21 MG/DL (6-23); CALCIUM, SERUM 8.4 MG/DL (8.5-10.4); CHLORIDE, SERUM 113 MMOL/L (96-112); CO2 (CARBON DIOXIDE) 30 MMOL/L (24-34); CREATININE 0.71 MG/DL (0.70-1.30); GFR AFRICAN AMERICAN 101 ML/MIN (>=60); GFR NON AFRICAN AMERICAN 87 ML/MIN (>=60); GLUCOSE, SERUM 129 MG/DL (60-99); POTASSIUM, SERUM 3.9 MMOL/L (3.5-5.3); SODIUM, SERUM 149 MMOL/L (135-148)
[2016-09-04 05:35] LABS: ANISOCYTOSIS 1+ (5-10/OIF) (0-5/OIF); BAND NEUTROPHILS 1 %; EOSINOPHILS 1 %; LYMPHOCYTES 3 %; LYMPHOCYTES ABSOLUTE (CALC) 0.31 10/3/uL (0.67-4.30); MONOCYTES 4 %; MONOCYTES ABSOLUTE (CALC) 0.41 10/3/uL (0.21-1.20); NEUTROPHILS ABSOLUTE (CALC) 9.38 10/3/uL (2.02-8.40); PLATELET ESTIMATE ADQ (ADEQUATE); SEGMENTED NEUTROPHIL (0) 91 %; TOTAL NUCLEATED CELLS 100
[2016-09-05 07:02] LABS: BASOPHILS 0.3 %; BASOPHILS ABSOLUTE 0.03 10/3/uL (0.0-0.16); EOSINOPHILS 2.5 %; EOSINOPHILS ABSOLUTE 0.23 10/3/uL (0.0-0.53); HEMATOCRIT 28.4 % (40.0-51.0); HEMOGLOBIN 8.5 g/dL (13.6-17.8); IMMATURE GRANULOCYTES 0.4 %; IMMATURE GRANULOCYTES ABSOLUTE 0.04 10/3/uL (0.0-0.11); LYMPHOCYTES 7.7 %; MEAN CORPUS HGB CONC 29.9 g/dL (32.0-36.0); MEAN CORPUSCULAR HEMOGLOB 28.2 pg (26.0-34.0); MEAN CORPUSCULAR VOLUME 94.4 fL (80-100); MONOCYTES 5.3 %; MONOCYTES ABSOLUTE 0.48 10/3/uL (0.21-1.20); NEUTROPHILS 83.8 %; NEUTROPHILS ABSOLUTE 7.65 10/3/uL (2.02-8.40); PLATELET COUNT 208 10/3/uL (150-400); RBC DISTRIBUTION WIDTH 18.2 % (12.0-16.0); RED CELL COUNT 3.01 10/6/uL (4.7-6.1); WHITE BLOOD CELLS 9.1 10/3/uL (4.5-10.5)
[2016-09-05 07:04] LABS: MANUAL DIFF NO %
[2016-09-05 07:04] LABS: BUN (BLOOD UREA NITROGEN) 19 MG/DL (6-23); CALCIUM, SERUM 8.2 MG/DL (8.5-10.4); CHLORIDE, SERUM 110 MMOL/L (96-112); CO2 (CARBON DIOXIDE) 33 MMOL/L (24-34); CREATININE 0.58 MG/DL (0.70-1.30); GFR AFRICAN AMERICAN 110 ML/MIN (>=60); GFR NON AFRICAN AMERICAN 95 ML/MIN (>=60); GLUCOSE, SERUM 124 MG/DL (60-99); POTASSIUM, SERUM 3.2 MMOL/L (3.5-5.3); SODIUM, SERUM 147 MMOL/L (135-148)
[2016-09-06 06:49] LABS: HEMATOCRIT 27.5 % (40.0-51.0); HEMOGLOBIN 8.5 g/dL (13.6-17.8); MEAN CORPUS HGB CONC 30.9 g/dL (32.0-36.0); MEAN CORPUSCULAR HEMOGLOB 28.7 pg (26.0-34.0); MEAN CORPUSCULAR VOLUME 92.9 fL (80-100); MEAN PLATELET VOLUME 10.7 fL (9.2-13.0); PLATELET COUNT 218 10/3/uL (150-400); RED CELL COUNT 2.96 10/6/uL (4.7-6.1); WHITE BLOOD CELLS 9.7 10/3/uL (4.5-10.5)
[2016-09-06 06:50] LABS: MANUAL DIFF YES %
[2016-09-06 07:04] LABS: BUN (BLOOD UREA NITROGEN) 16 MG/DL (6-23); CALCIUM, SERUM 8.4 MG/DL (8.5-10.4); CHLORIDE, SERUM 103 MMOL/L (96-112); CO2 (CARBON DIOXIDE) 33 MMOL/L (24-34); CREATININE 0.59 MG/DL (0.70-1.30); GFR AFRICAN AMERICAN 109 ML/MIN (>=60); GFR NON AFRICAN AMERICAN 94 ML/MIN (>=60); GLUCOSE, SERUM 123 MG/DL (60-99); POTASSIUM, SERUM 3.4 MMOL/L (3.5-5.3); SODIUM, SERUM 142 MMOL/L (135-148)
[2016-09-06 07:19] LABS: ANISOCYTOSIS 1+ (5-10/OIF) (0-5/OIF); EOSINOPHILS 2 %; EOSINOPHILS ABSOLUTE (CALC) 0.19 10/3/uL (0.0-0.53); HYPOCHROMIA 1+ (3-10/OIF) (0-2/OIF); LYMPHOCYTES 10 %; LYMPHOCYTES ABSOLUTE (CALC) 0.97 10/3/uL (0.67-4.30); MONOCYTES 10 %; MONOCYTES ABSOLUTE (CALC) 0.97 10/3/uL (0.21-1.20); NEUTROPHILS ABSOLUTE (CALC) 7.57 10/3/uL (2.02-8.40); PLATELET ESTIMATE ADQ (ADEQUATE); SEGMENTED NEUTROPHIL (0) 78 %; TOTAL NUCLEATED CELLS 100
[2016-09-06 07:34] LABS: PROCALCITONIN 0.27 ng/mL (<0.5)
[2016-09-07 06:16] LABS: BUN (BLOOD UREA NITROGEN) 14 MG/DL (6-23); CALCIUM, SERUM 8.6 MG/DL (8.5-10.4); CHLORIDE, SERUM 101 MMOL/L (96-112); CO2 (CARBON DIOXIDE) 31 MMOL/L (24-34); CREATININE 0.64 MG/DL (0.70-1.30); GFR AFRICAN AMERICAN 106 ML/MIN (>=60); GFR NON AFRICAN AMERICAN 91 ML/MIN (>=60); GLUCOSE, SERUM 105 MG/DL (60-99); POTASSIUM, SERUM 3.1 MMOL/L (3.5-5.3); SODIUM, SERUM 139 MMOL/L (135-148)
[2016-09-07 06:27] LABS: HEMATOCRIT 28.9 % (40.0-51.0); HEMOGLOBIN 9.1 g/dL (13.6-17.8); MANUAL DIFF YES %; MEAN CORPUS HGB CONC 31.5 g/dL (32.0-36.0); MEAN CORPUSCULAR HEMOGLOB 28.5 pg (26.0-34.0); MEAN CORPUSCULAR VOLUME 90.6 fL (80-100); MEAN PLATELET VOLUME 10.3 fL (9.2-13.0); PLATELET COUNT 266 10/3/uL (150-400); RBC DISTRIBUTION WIDTH 17.8 % (12.0-16.0); RED CELL COUNT 3.19 10/6/uL (4.7-6.1); WHITE BLOOD CELLS 10.2 10/3/uL (4.5-10.5)
[2016-09-07 07:22] LABS: ANISOCYTOSIS 1+ (5-10/OIF) (0-5/OIF); BAND NEUTROPHILS 4 %; EOSINOPHILS 2 %; HYPOCHROMIA 1+ (3-10/OIF) (0-2/OIF); LYMPHOCYTES 10 %; LYMPHOCYTES ABSOLUTE (CALC) 1.02 10/3/uL (0.67-4.30); METAMYELOCYTES 1 %; MONOCYTES 6 %; MONOCYTES ABSOLUTE (CALC) 0.61 10/3/uL (0.21-1.20); NEUTROPHILS ABSOLUTE (CALC) 8.26 10/3/uL (2.02-8.40); PLATELET ESTIMATE ADQ (ADEQUATE); SEGMENTED NEUTROPHIL (0) 77 %; TOTAL NUCLEATED CELLS 100
[2016-09-08 07:27] LABS: HEMATOCRIT 30.9 % (40.0-51.0); HEMOGLOBIN 9.6 g/dL (13.6-17.8); MEAN CORPUS HGB CONC 31.1 g/dL (32.0-36.0); MEAN CORPUSCULAR HEMOGLOB 28.3 pg (26.0-34.0); MEAN CORPUSCULAR VOLUME 91.2 fL (80-100); MEAN PLATELET VOLUME 10.3 fL (9.2-13.0); PLATELET COUNT 303 10/3/uL (150-400); RBC DISTRIBUTION WIDTH 18.1 % (12.0-16.0); RED CELL COUNT 3.39 10/6/uL (4.7-6.1)
[2016-09-08 07:29] LABS: MANUAL DIFF YES %
[2016-09-08 07:41] LABS: BUN (BLOOD UREA NITROGEN) 15 MG/DL (6-23); CALCIUM, SERUM 8.8 MG/DL (8.5-10.4); CHLORIDE, SERUM 102 MMOL/L (96-112); CO2 (CARBON DIOXIDE) 31 MMOL/L (24-34); CREATININE 0.63 MG/DL (0.70-1.30); GFR AFRICAN AMERICAN 106 ML/MIN (>=60); GFR NON AFRICAN AMERICAN 92 ML/MIN (>=60); GLUCOSE, SERUM 109 MG/DL (60-99); PHOSPHORUS, SERUM 3.1 MG/DL (2.5-4.5); POTASSIUM, SERUM 3.4 MMOL/L (3.5-5.3); SODIUM, SERUM 142 MMOL/L (135-148)
[2016-09-08 08:32] LABS: ANISOCYTOSIS 1+ (5-10/OIF) (0-5/OIF); BAND NEUTROPHILS 3 %; EOSINOPHILS 3 %; EOSINOPHILS ABSOLUTE (CALC) 0.27 10/3/uL (0.0-0.53); HELMET CELLS OCC (0-2/OIF); IMMATURE GRANS ABSOLUTE (CALC) 0.09 10/3/uL (0.0-0.11); LYMPHOCYTES 12 %; LYMPHOCYTES ABSOLUTE (CALC) 1.08 10/3/uL (0.67-4.30); MACROCYTES 1+ (5-10/OIF) (0-5/OIF); METAMYELOCYTES 1 %; MONOCYTES 7 %; MONOCYTES ABSOLUTE (CALC) 0.63 10/3/uL (0.21-1.20); NEUTROPHILS ABSOLUTE (CALC) 6.93 10/3/uL (2.02-8.40); PLATELET ESTIMATE ADQ (ADEQUATE); POLYCHROMASIA 1+ (2-5/OIF) (0-1/OIF); SEGMENTED NEUTROPHIL (0) 74 %; TOTAL NUCLEATED CELLS 100
[2016-09-09 06:35] LABS: HEMATOCRIT 28.9 % (40.0-51.0); MEAN CORPUS HGB CONC 31.1 g/dL (32.0-36.0); MEAN CORPUSCULAR HEMOGLOB 28.6 pg (26.0-34.0); MEAN CORPUSCULAR VOLUME 91.7 fL (80-100); MEAN PLATELET VOLUME 10.2 fL (9.2-13.0); PLATELET COUNT 325 10/3/uL (150-400); RBC DISTRIBUTION WIDTH 18.3 % (12.0-16.0); RED CELL COUNT 3.15 10/6/uL (4.7-6.1); WHITE BLOOD CELLS 8.6 10/3/uL (4.5-10.5)
[2016-09-09 06:39] LABS: MANUAL DIFF YES %
[2016-09-09 06:43] LABS: BUN (BLOOD UREA NITROGEN) 15 MG/DL (6-23); CALCIUM, SERUM 8.6 MG/DL (8.5-10.4); CHLORIDE, SERUM 101 MMOL/L (96-112); CO2 (CARBON DIOXIDE) 32 MMOL/L (24-34); CREATININE 0.61 MG/DL (0.70-1.30); GFR AFRICAN AMERICAN 108 ML/MIN (>=60); GFR NON AFRICAN AMERICAN 93 ML/MIN (>=60); GLUCOSE, SERUM 103 MG/DL (60-99); POTASSIUM, SERUM 3.4 MMOL/L (3.5-5.3); SODIUM, SERUM 139 MMOL/L (135-148)
[2016-09-09 07:10] LABS: ANISOCYTOSIS 1+ (5-10/OIF) (0-5/OIF); BAND NEUTROPHILS 7 %; BASOPHILS 1 %; BASOPHILS ABSOLUTE (CALC) 0.09 10/3/uL (0.0-0.16); EOSINOPHILS 2 %; EOSINOPHILS ABSOLUTE (CALC) 0.17 10/3/uL (0.0-0.53); IMMATURE GRANS ABSOLUTE (CALC) 0.17 10/3/uL (0.0-0.11); LYMPHOCYTES 16 %; LYMPHOCYTES ABSOLUTE (CALC) 1.38 10/3/uL (0.67-4.30); MACROCYTES 1+ (5-10/OIF) (0-5/OIF); METAMYELOCYTES 1 %; MONOCYTES 9 %; MONOCYTES ABSOLUTE (CALC) 0.77 10/3/uL (0.21-1.20); MYELOCYTES 1 %; NEUTROPHILS ABSOLUTE (CALC) 6.02 10/3/uL (2.02-8.40); PLATELET ESTIMATE ADQ (ADEQUATE); POLYCHROMASIA 1+ (2-5/OIF) (0-1/OIF); SEGMENTED NEUTROPHIL (0) 63 %; TOTAL NUCLEATED CELLS 100
[2016-09-09 07:11] LABS: HYPOCHROMIA 1+ (3-10/OIF) (0-2/OIF); TEARDROP SHAPED RBCS OCC (0-2/OIF)
[2016-09-10 06:34] LABS: HEMATOCRIT 28.9 % (40.0-51.0); HEMOGLOBIN 9.2 g/dL (13.6-17.8); MEAN CORPUS HGB CONC 31.8 g/dL (32.0-36.0); MEAN CORPUSCULAR HEMOGLOB 28.7 pg (26.0-34.0); MEAN PLATELET VOLUME 10.1 fL (9.2-13.0); PLATELET COUNT 355 10/3/uL (150-400); RBC DISTRIBUTION WIDTH 18.1 % (12.0-16.0); RED CELL COUNT 3.21 10/6/uL (4.7-6.1); WHITE BLOOD CELLS 7.9 10/3/uL (4.5-10.5)
[2016-09-10 06:35] LABS: MANUAL DIFF YES %
[2016-09-10 06:42] LABS: BUN (BLOOD UREA NITROGEN) 16 MG/DL (6-23); CALCIUM, SERUM 8.9 MG/DL (8.5-10.4); CHLORIDE, SERUM 100 MMOL/L (96-112); CO2 (CARBON DIOXIDE) 31 MMOL/L (24-34); CREATININE 0.65 MG/DL (0.70-1.30); GFR AFRICAN AMERICAN 105 ML/MIN (>=60); GFR NON AFRICAN AMERICAN 91 ML/MIN (>=60); GLUCOSE, SERUM 109 MG/DL (60-99); PHOSPHORUS, SERUM 3.2 MG/DL (2.5-4.5); POTASSIUM, SERUM 3.5 MMOL/L (3.5-5.3); SODIUM, SERUM 138 MMOL/L (135-148)
[2016-09-10 07:05] LABS: BAND NEUTROPHILS 1 %; EOSINOPHILS 2 %; EOSINOPHILS ABSOLUTE (CALC) 0.16 10/3/uL (0.0-0.53); LYMPHOCYTES 18 %; LYMPHOCYTES ABSOLUTE (CALC) 1.42 10/3/uL (0.67-4.30); MONOCYTES 2 %; MONOCYTES ABSOLUTE (CALC) 0.16 10/3/uL (0.21-1.20); NEUTROPHILS ABSOLUTE (CALC) 6.16 10/3/uL (2.02-8.40); SEGMENTED NEUTROPHIL (0) 77 %; TOTAL NUCLEATED CELLS 100
[2016-09-10 07:06] LABS: ANISOCYTOSIS 1+ (5-10/OIF) (0-5/OIF); PLATELET ESTIMATE ADQ (ADEQUATE)
[2016-09-10 07:07] LABS: POLYCHROMASIA 1+ (2-5/OIF) (0-1/OIF)
[2016-11-13] MEDS ORDERED: BROVANA15 MCG INH (20:08)
[2016-11-13] MEDS ORDERED: LIPITOR20 PO (20:08)
[2016-11-13] MEDS ORDERED: SIN25 PO (20:08)
[2016-11-13] MEDS ORDERED: ARICEPT10 PO (20:09)
[2016-11-13] MEDS ORDERED: ARICEPT5 PO (20:10)
[2016-11-13] MEDS ORDERED: EXELON9.5T TOP (20:10)
[2016-11-13] MEDS ORDERED: FLORASTOR250 MG PO (20:11)
[2016-11-13] MEDS ORDERED: LEVOTHYROXIN75 MCG PO (20:13)
[2016-11-13] MEDS ORDERED: DUONEB INH (20:13)
[2016-11-13] MEDS ORDERED: NAMENDA5 PEG (20:14)
[2016-11-13] MEDS ORDERED: ZYPREXA10 MG PO (20:15)
[2016-11-13] MEDS ORDERED: LOP25 PEG (20:15)
[2016-11-13] MEDS ORDERED: PACERONE100 MG PO (20:17)
[2016-11-13] MEDS ORDERED: FLOMAX4 PO (20:18)
[2016-11-13] MEDS ORDERED: RESTASIS OPH (20:18)
[2016-11-13] MEDS ORDERED: EFFEX75 PO (20:18)
[2016-11-13] MEDS ORDERED: K-TABS10 MEQ PO (20:18)
[2016-11-13] MEDS ORDERED: XARELTO20 MG PO (20:19)
[2016-12-31] MEDS ORDERED: FLOMAX4 PEG (08:57)
[2016-12-31] MEDS ORDERED: PACERONE100 MG PEG (08:57)
[2016-12-31] MEDS ORDERED: LOP25 PEG (08:57)
[2016-12-31] MEDS ORDERED: NAMENDA5 PEG (08:58)
[2016-12-31] MEDS ORDERED: ARICEPT10 PEG (08:58)
[2016-12-31] MEDS ORDERED: LIPITOR20 PEG (08:58)
[2016-12-31] MEDS ORDERED: ZYPREXA10 MG PEG (08:59)
[2016-12-31] MEDS ORDERED: SYN075 PEG (08:59)
[2016-12-31] MEDS ORDERED: XARELTO20 MG PEG (08:59)
[2016-12-31] MEDS ORDERED: SIN25 PEG (09:00)
[2016-12-31] MEDS ORDERED: EFFEXOR XR150 MG PEG (09:00)
[2016-12-31] MEDS ORDERED: RESTASIS OPH (09:00)
[2016-12-31] MEDS ORDERED: EXELON9.5T TOP (09:01)
[2016-12-31] MEDS ORDERED: FLORASTOR250 MG PEG (09:01)
[2016-12-31] MEDS ORDERED: ARICEPT5 PEG (09:01)
[2016-12-31] MEDS ORDERED: KCL20UDL PEG (09:01)
[2016-12-31] MEDS ORDERED: X5 PEG (09:02)
[2016-12-31] MEDS ORDERED: XANAX1 MG PEG (09:02)
[2016-12-31] MEDS ORDERED: BROVANA15 MCG INH (09:02)
[2016-12-31] MEDS ORDERED: HUMALOGPEN SC (09:02)
[2016-12-31] MEDS ORDERED: CLEOCIN300 MG PO (09:03)
[2016-12-31] MEDS ORDERED: OCEAN NAS (09:03)
[2016-12-31] MEDS ORDERED: DUONEB INH (09:03)
== END 2016-09-10 19:58 | DRG 698 ==
LOC: ER 18:09 → 7NO 21:45
PROVIDERS: Emergency Medicine; Hospitalist; Internal Medicine
DX: T83.518A Infection and inflammatory reaction due to other urinary catheter, initial encounter (principal); A41.81 Sepsis due to Enterococcus; J69.0 Pneumonitis due to inhalation of food and vomit; J96.21 Acute and chronic respiratory failure with hypoxia; J18.9 Pneumonia, unspecified organism; N17.9 Acute kidney failure, unspecified; E87.0 Hyperosmolality and hypernatremia; I24.8 Other forms of acute ischemic heart disease; R13.12 Dysphagia, oropharyngeal phase; I48.2 Chronic atrial fibrillation; R65.20 Severe sepsis without septic shock; N39.0 Urinary tract infection, site not specified; F03.90 Unspecified dementia, unspecified severity, without behavioral disturbance, psychotic disturbance, mood disturbance, and anxiety; G20 Parkinson's disease; E87.6 Hypokalemia; Z66 Do not resuscitate; Z79.02 Long term (current) use of antithrombotics/antiplatelets; Z74.01 Bed confinement status; Z51.5 Encounter for palliative care
CPT/HCPCS: 36600; 71010; 71250; 74176; 80048; 80053; 80069; 80202; 81001; 82550; 82553; 82570; 82805; 82962; 83605; 83735; 83880; 83935; 84100; 84132; 84145; 84300; 84484; 85025; 85610; 85730; 87040; 87077; 87086; 87150; 87186; 87449; 87493; 87493-59; 93005; 94640; 94668; 96374; 96375; 97110-GO; 97110-GP; 97162-GP; 97163-GP; 97165-GO; 97168-GO; 97530-GP; 97535-GO; 99285; A9270-GY; C8929; J0692; J2405; J3370; Q9957

== ENCOUNTER 2016-09-14 15:48 | Inpatient (IN) | payer BC ==
--- NOTE | ~2016-09-14 | HP ---
History And Physical [place] [id number] [facility] [place]. [address] NAME: TEODOROEMILIEGILBERTO SR, MD : 33 STATUS : ADM IN [facility]#: [id number] AGE: 80 ADM/REG DATE : 09/14/16 MR#: [id number] REPORT SERV DATE: 09/15/16 DICTATED BY: THERESA REED DATE: 09/14/16 REPORT STATUS : Draft TRANSCRIBED BY: MODL DATE: 09/14/16 DATE OF ADMISSION: 09/14/2016 CHIEF COMPLAINT: Fever and respiratory distress. HISTORY OF PRESENT ILLNESS: This is an 80-year-old male with medical history of Parkinson disease, advanced dementia with severe dysphagia, and multiple admissions for recurrent aspiration pneumonia at least I can count seven admissions within one year. The patient was brought to the emergency room from long-term with complaints of respiratory distress and epistaxis. Of note, the patient was recently discharged from the hospital four days ago for aspiration pneumonia, where the patient had an extensive hospital stay from 08/29/2016 to 09/12/2016. During that admission, there was discussion for initiation of hospice care, but family declined. Family opted for the patient to be discharged to SNF to continue rehab. The patient was discharged from the hospital in stable condition. At the time of this interview, the patient was unresponsive to verbal commands and in respiratory distress. The rest of H and P was obtained from the , who was sitting at the patient's bedside. It was noted that two days after discharge, the patient developed an episode of epistaxis, initially it was noted to be small which subsided spontaneously. On the day of presentation, it was noted that the patient developed worsening epistaxis, was noted to have crust of blood, which extended into the oropharynx. It was also noted that the patient developed worsening cough, shortness of breath, and low oxygen desaturation. The patient's reported that the patient also developed a low-grade fever 24 hours prior to the day of presentation. T-max was 101, hence family requested the patient to be transferred to the emergency room for further evaluation. In the emergency room, the patient was noted to be tachycardic, tachypneic, requiring nonrebreather face mask to maintain saturation above 90. Chest x-ray was done that confirms the presence of mild interstitial edema with minimal pleural effusion that caused blunting of the costophrenic angle. Also noted was bibasilar atelectasis and consolidation. [place] [address]. An assessment of sepsis secondary to aspiration pneumonia was made in the ER. Blood cultures were obtained. The patient was started on broad-spectrum IV antibiotics with vancomycin and cefepime. The Hospitalist Service was consulted to admit the patient for further treatment. PAST MEDICAL HISTORY: 1. Parkinson disease. 2. Advanced dementia. 3. Atrial fibrillation, on chronic anticoagulation on Xarelto. 4. History of dysphagia and recurrent episodes of aspiration requiring PEG tube insertion and strict n.p.o. History And Physical [address] [address] NAME: GILBERTO DURAND SR, MD : 33 STATUS : ADM IN [facility]#: [id number] AGE: 80 ADM/REG DATE : 09/14/16 MR#: [id number] REPORT SERV DATE: 09/15/16 DICTATED BY: THERESA REED DATE: 09/14/16 REPORT STATUS : Draft TRANSCRIBED BY: JEMMA DATE: 09/14/16 5. History of prior cerebrovascular accident. 6. History of parotitis. 7. History of coronary artery disease with prior coronary artery bypass, history of DVT. 8. Insulin-dependent diabetes mellitus type 2. 9. Iron deficiency anemia. 10.Moderate aortic stenosis. 11.BPH. 12.Hypothyroidism. PAST SURGICAL HISTORY: 1. Coronary artery bypass grafting. 2. Cholecystectomy. 3. TURP. 4. PEG insertion. ALLERGIES: 1. PENICILLIN. 2. SHELLFISH. 3. BENADRYL. HOME MEDICATIONS: 1. Tylenol 600 mg p.o. q.4 hours. 2. Albuterol one inhaler b.i.d. 3. Amiodarone 100 mg p.o. daily. 4. Brovana 15 mcg b.i.d. 5. Lipitor 20 mg p.o. b.i.d. 6. Lipitor 20 mg q.h.s. 7. Pulmicort one inhalation b.i.d. 8. Bumex 2 mg daily. 9. Carbidopa and levodopa half tab t.i.d. 10.Restasis eyedrops one b.i.d. 11.Levemir 5 units daily. 12.Insulin sliding scale. 13.Levothyroxine 75 mcg daily. 14.Melatonin 3 mg q.h.s. 15.Namenda 5 mg b.i.d. 16.Lopressor 25 mg b.i.d. 17.Zofran 4 mg q.4 hours. 18.Xarelto 20 mg q.h.s. 19.Florastor one tab daily. 20.Flomax 0.4 mg daily. 21.Effexor XR 75 mg p.o. daily. SOCIAL HISTORY: Unable to obtain from the patient at this time, but the patient was unresponsive to verbal command. Per chart review, the patient does not smoke cigarettes and does not drink alcohol. Currently lives at a long-term. The patient is currently . is at bedside. Son is also a physician, who comes regularly to visit the History And Physical [address] [address] NAME: LADARIUSGILBERTO SR, MD : 33 STATUS : ADM IN [facility]#: [id number] AGE: 80 ADM/REG DATE : 09/14/16 MR#: [id number] REPORT SERV DATE: 09/15/16 DICTATED BY: THERESA REED DATE: 09/14/16 REPORT STATUS : Draft TRANSCRIBED BY: JEMMA DATE: 09/14/16 patient in the hospital. FAMILY HISTORY: Coronary artery disease. Mother of complications of old age. REVIEW OF SYSTEMS: Unable to obtain, as the patient is currently not responding to verbal command. PHYSICAL EXAMINATION: VITAL SIGNS: Blood pressure 141/67, temperature 97.8, pulse 117, saturating 93% on nonrebreather. GENERAL: In respiratory distress, nonresponsive to verbal command, but responds to pain. HEENT: Pupils equal, round, and reactive. Extraocular muscles intact. Oral mucosa filled with crusted old blood, also noted crusted old blood in the nasopharynx. NECK: No JVD. LUNGS: Diffuse rhonchi in all lung jimenez. No wheezes, no crackles. CARDIOVASCULAR: S1, S2. No rubs, no murmurs, and no gallops. ABDOMEN: Bowel sounds normoactive. Soft, nontender. No organomegaly. LOWER EXTREMITIES: No pedal edema. LABORATORY DATA: 1. WBC 21.3, hemoglobin 10.6, hematocrit 35.9, platelets 402. 2. Chemistry; sodium 143, potassium 4.1, chloride 100, bicarb 37, BUN 33, creatinine 1.22, GFR 64, glucose 209, troponin 0.10, magnesium 2.5. 3. Chest x-ray, impression:. a. Mild interstitial edema with minimal pleural effusion that caused blunting of the costophrenic angle. b. Bibasilar atelectasis and consolidation. ASSESSMENT: 1. Severe sepsis. 2. Aspiration pneumonia. 3. Epistaxis. 4. Chronic atrial fibrillation, on chronic anticoagulation with Xarelto. 5. Coronary artery disease, status post CABG. 6. Elevated troponin secondary to demand ischemia. 7. Oropharyngeal dysphagia. 8. Advanced dementia. 9. Parkinson disease. PLAN: 1. Severe sepsis secondary to recurrent aspiration pneumonia. Extensive discussion was had with the patient's at the bedside in the ER for initiation of hospice. However, the patient's declined. The patient's wants to continue medical therapy with IV broad-spectrum antibiotics and supportive care. Blood cultures have been obtained in the ER. We will continue vancomycin and cefepime at this time. We will repeat the patient's lactic acid and procalcitonin level. We will add DuoNebs to the patient's respiratory treatments. History And Physical [address] [address] NAME: GILBERTO DURAND SR, MD : 33 STATUS : ADM IN [facility]#: [id number] AGE: 80 ADM/REG DATE : 09/14/16 MR#: [id number] REPORT SERV DATE: 09/15/16 DICTATED BY: THERESA REED DATE: 09/14/16 REPORT STATUS : Draft TRANSCRIBED BY: MODL DATE: 09/14/16 2. Epistaxis. At this point, we will hold Xarelto, as this may be contributing to the patient's epistaxis. I will continue to monitor the patient's H and H and transfuse if hemoglobin less than 7. 3. Chronic atrial fibrillation. The patient is tachycardic in the ER with a heart rate of 117. The patient's metoprolol is currently on hold in the ER. When the patient returns to the floor and remains hemodynamically stable, metoprolol will be recommenced. I will also order for an EKG at this time. 4. Coronary demand ischemia. The patient's troponin on presentation is 0.10. The patient has a chronic elevated troponin level. We will obtain an EKG. We will perform serial troponin and continue to monitor. Etiology is likely related to severe sepsis. 5. Coronary artery disease, status post CABG. No evidence of chest pain. No EKG ST-T wave changes at this time. We will continue to monitor. 6. Advanced dementia with oropharyngeal dysphagia with recurrent aspiration status post PEG tube placement. The patient will continue PEG tube feeding. The patient will be placed on aspiration precautions. 7. Code status, DNR, DNI. 8. DVT prophylaxis contraindicated due to active bleeding and use of chronic anticoagulation. DISPOSITION: . ADMISSION STATUS: Inpatient. MIGUELO/MODL Theresa Reed MD / [id number] CC: Theresa Reed MD
--- NOTE | ~2016-09-14 | DS ---
Discharge Summary [place] [address] [facility] [place]. [address] NAME: LADARIUSGILBERTO Bradshaw SR, MD : 33 STATUS : DIS IN PAT#: [id number] AGE: 80 ADM/REG DATE : 09/14/16 MR#: [id number] REPORT SERV DATE: 09/22/16 DICTATED BY: DATE: REPORT STATUS : Draft TRANSCRIBED BY: MODL DATE: 09/21/16 ADMISSION DATE: 09/14/2016 DISCHARGE DATE: 09/21/2016 DISCHARGE DIAGNOSES: 1. Aspiration pneumonia, recurrent. 2. Acute on chronic respiratory failure. 3. Acute on chronic iron deficient anemia. 4. Acute bacteremia. 5. Paroxysmal atrial fibrillation. 6. Severe oropharyngeal dysphagia. 7. Parkinson disease with dementia. 8. History of coronary artery disease. 9. History of deep venous thrombosis. CONSULTATIONS: Nutrition on 09/15/2016. PERTINENT TESTS AND PROCEDURES: 1. Chest x-ray on 09/14/2016. Impression: Mild interstitial edema with minimal pleural effusion that caused blunting of the costophrenic angle. Bibasilar atelectasis and consolidation. 2. Echocardiogram on 09/18/2016. Summary: Overall quality of study was poor. Contrast used to enhance endocardial border definition. Left ventricle systolic function reduced to 40%, unchanged from 09/05/2016. Mild left ventricular hypertrophy unchanged. Moderate left atrial dilatation unchanged. Right ventricular systolic function intact. Aortic sclerosis with moderate severe stenosis. 3. KUB on 09/20/2016. Impression: Decreased fecal material within colon compared to 07/21/2016. No evidence of acute abnormality within the abdomen. 4. Blood cultures x2 sites collected on 09/17/2016. Preliminary result: No growth at one day. 5. Blood cultures x2 sites collected on 09/14/2016. Final result: Two positive blood cultures of two collected growth of Staphylococcus hominis. 6. Occult blood stool specimen collected on 09/20/2016. Final result: Occult blood positive. 7. Urine culture on 09/15/2016. Final result: Greater than 100,000 colonies of Nannette tropicalis. HOSPITAL COURSE: Please refer to history and physical dated 09/15/[address] Smith for complete details pertaining to the patient's initial presentation upon admission and health history. Briefly, the patient is an 80-year-old male with a complex medical history to include Parkinson disease with dementia, atrial fibrillation, history of dysphagia and recurrent episodes of aspiration pneumonia requiring PEG tube feedings and strict nothing by mouth status, CVA, and coronary artery disease with prior coronary artery bypass grafting. Discharge Summary [place] [address] [place]. [address] NAME: GILBERTO DURAND Leeann ADAN MD : 33 STATUS : DIS IN PAT#: [id number] AGE: 80 ADM/REG DATE : 09/14/16 MR#: [id number] REPORT SERV DATE: 09/22/16 DICTATED BY: DATE: REPORT STATUS : Draft TRANSCRIBED BY: MODL DATE: 09/21/16 It is noteworthy to mention that the patient has had multiple admissions for recurrent aspiration pneumonia within the past year. The patient was brought to the emergency room from the assisted on 09/14/2016 with complaints of respiratory distress and epistaxis. Prior to this admission the patient was recently discharged from the hospital from an extensive stay occurring between the dates of 08/29/2016 and 09/12/2016. At that time, discussion for initiation of hospice occurred, but family declined. Family goal is to return to alf facility to continue rehab and then eventually home. Initial diagnostic workup included diagnosis of severe sepsis secondary to recurrent aspiration pneumonia. Vancomycin and cefepime were initiated and the patient was admitted for further evaluation and treatment. 1. Recurrent aspiration pneumonia. This is secondary to severe oropharyngeal dysphagia. The patient is strict n.p.o. status and is PEG tube dependent. The patient responded well to IV antibiotics and was transitioned to Levaquin per PEG tube for a total of 10- day therapy which will continue once transferred to alf facility. Presumed sepsis reported upon admission, has since resolved. 2. Acute bacteremia. On 09/14/2016 the patient had two positive of two blood cultures collected, coag-negative staph. The patient has no history of prosthetic devices to contribute to his source of infection likely contaminant. TTE was negative for endocarditis. 3. Acute blood loss anemia on chronic anemia. Since admission, the patient's hemoglobin has trended down slowly from 10.6 upon admission to 6.9 yesterday. The patient received one unit of packed red blood cells and hemoglobin was reported to be 8.1 today. The patient has history of chronic anticoagulation on Xarelto for atrial fibrillation and history of DVT. Xarelto has been on hold since admission. No clear source of bleeding was identified. The patient did have positive Hemoccult that may be related to recent significant nose bleed during first part of admission. Continue to hold Xarelto for now and restart when hemoglobin is stable. 4. Acute on chronic respiratory failure. The patient has baseline supplemental O2 dependency at 3 L. Since starting IV antibiotics the patient's O2 requirements have decreased and he has now returned to baseline, and is saturating 97% on 3 L. 5. History of atrial fibrillation with RVR. Continue amiodarone and beta marcelino. Continue to hold Xarelto until hemoglobin and hematocrit are stable. 6. Severe oropharyngeal dysphagia resulting in chronic PEG tube feeding dependency. The patient is to remain strict n.p.o. status with aspiration precautions to include head of bed elevation at 45 degrees or higher at all times. Tube feed formula was changed during this admission to TwoCal HN to assist in reduction of volume to assist in reducing aspiration risk. The patient's goal rate has been achieved at 40 mL/h. 7. Parkinson disease with dementia. Continue home medications. 8. Coronary artery disease history. The patient is status post coronary artery bypass grafting and has a history of severe low gradient aortic stenosis. The patient is not a candidate for AVR secondary to multiple comorbidities and fragile health state. 9. History of DVT, right brachial vein associated with PICC line. Restart Xarelto when appropriate. Discharge Summary [address] [address] NAME: GILBERTO DURAND SR, MD : 33 STATUS : DIS IN PAT#: [id number] AGE: 80 ADM/REG DATE : 09/14/16 MR#: [id number] REPORT SERV DATE: 09/22/16 DICTATED BY: DATE: REPORT STATUS : Draft TRANSCRIBED BY: MODL DATE: 09/21/16 10.Type 2 diabetes. The patient's A1c is 5.6, blood glucose is currently controlled on 5 units of Levemir subcu every h.s., and sliding scale insulin q.6 hours as the patient is n.p.o. DISCHARGE CONDITION: At the time of discharge, the patient is hemodynamically stable. DISCHARGE DIET: Strict n.p.o. status. PEG tube feeding dependent TwoCal High Nutrition at 40 mL/h x22 hours daily. Free H2O PEG flushes 240 mL five times daily. DISCHARGE MEDICATIONS: 1. Lipitor 20 mg tablet p.o. per PEG at bedtime. 2. Amiodarone 100 mg tablet per PEG daily, hold for systolic blood pressure less than 110 or heart rate less than 60. 3. Bumex 2 mg per PEG daily. 4. Sinemet 25/100 mg tablet, take one-half tablet per PEG three times daily. 5. Ceftin 500 mg tablet per PEG p.o. twice daily. Stop date 09/29/2016 at midnight. 6. Peridex rinse 50 mL every 4 hours, do not swallow. 7. Restasis instill one drop in both eyes twice daily. 8. Levemir 5 units subcu daily every h.s. 9. Sliding scale insulin level 2 every 6 hours. 10.Levothyroxine 75 mcg per PEG daily. 11.Namenda 5 mg tablet per PEG twice daily. 12.Lopressor 25 mg per PEG twice daily. 13.MiraLAX 17 g per PEG daily, hold for diarrhea. 14.Exelon 9.5 mg patch topical daily. 15.Flomax 0.4 mg capsule per PEG daily. 16.Effexor XR 75 mg per PEG daily. 17.Brovana 15 mcg per 2 mL inhale twice daily. 18.Pulmicort 1 mg inhale twice daily. 19.DuoNeb every 4 hours as needed. 20.Tylenol 325 mg tablet, take two tabs per PEG every 4 hours as needed. 21.Tylenol 650 mg suppository per rectum every 4 hours as needed. 22.Colace 100 mg tablet per PEG daily as needed. 23.Senokot two tablets p.o. at bedtime per PEG as needed. 24.Xarelto 20 mg tablet per PEG at bedtime. This medicine is currently on hold due to acute blood loss anemia on chronic anemia. Restart this medication as soon as hemoglobin and hematocrit are stable. DISCHARGE INSTRUCTIONS: The patient will be transferred to [facility]. All further plans of care will be directed per MD at [facility]. DICTATED BY: MOISES Leal/JEMMA Discharge Summary [address] [place]. [address] NAME: GILBERTO DURAND SR, MD : 33 STATUS : DIS IN PAT#: [id number] AGE: 80 ADM/REG DATE : 09/14/16 MR#: [id number] REPORT SERV DATE: 09/22/16 DICTATED BY: DATE: REPORT STATUS : Draft TRANSCRIBED BY: JEMMA DATE: 09/21/16 Maryanne Grier [employer] / [id number] CC: MD Trevor Peng II, M.D.
[2016-09-14 15:22] LABS: BASOPHILS 0.1 %; BASOPHILS ABSOLUTE 0.03 10/3/uL (0.0-0.16); EOSINOPHILS 0 %; EOSINOPHILS ABSOLUTE 0.01 10/3/uL (0.0-0.53); HEMOGLOBIN 10.6 g/dL (13.6-17.8); IMMATURE GRANULOCYTES 0.6 %; IMMATURE GRANULOCYTES ABSOLUTE 0.13 10/3/uL (0.0-0.11); LYMPHOCYTES 6.5 %; LYMPHOCYTES ABSOLUTE 1.38 10/3/uL (0.67-4.30); MEAN PLATELET VOLUME 9.7 fL (9.2-13.0); MONOCYTES 5.9 %; MONOCYTES ABSOLUTE 1.25 10/3/uL (0.21-1.20); NEUTROPHILS 86.9 %; NEUTROPHILS ABSOLUTE 18.46 10/3/uL (2.02-8.40); PLATELET COUNT 402 10/3/uL (150-400); RBC DISTRIBUTION WIDTH 19.1 % (12.0-16.0); RED CELL COUNT 3.78 10/6/uL (4.7-6.1)
[2016-09-14 15:23] LABS: ER CBC TAT 0 Hrs 07 Mins; HEMATOCRIT 35.9 % (40.0-51.0); MANUAL DIFF NO %; MEAN CORPUS HGB CONC 29.5 g/dL (32.0-36.0); WHITE BLOOD CELLS 21.3 10/3/uL (4.5-10.5)
[2016-09-14 15:27] LABS: PARTIAL THROMBO TIME 27.4 SEC (22.5-37.2)
[2016-09-14 15:28] LABS: INTERNATIONAL NORMAL RATI 1.4 UNITS (-); PROTIME (NOT ORD) 17.4 SEC (12.0-14.5)
[2016-09-14 15:37] LABS: CALCIUM, SERUM 9.7 MG/DL (8.5-10.4); CHLORIDE, SERUM 100 MMOL/L (96-112); POTASSIUM, SERUM 4.1 MMOL/L (3.5-5.3); SODIUM, SERUM 143 MMOL/L (135-148)
[2016-09-14 15:38] LABS: BUN (BLOOD UREA NITROGEN) 33 MG/DL (6-23); CHEST PAIN PROFILE TAT 0 Hrs 22 Mins; CO2 (CARBON DIOXIDE) 37 MMOL/L (24-34); CREATININE 1.22 MG/DL (0.70-1.30); GFR AFRICAN AMERICAN 64 ML/MIN (>=60); GFR NON AFRICAN AMERICAN 55 ML/MIN (>=60); GLUCOSE, SERUM 209 MG/DL (60-99)
[~2016-09-14 15:48] MED LIST changes: +K500 PEG; +PERIDEX MT
[2016-09-14 15:50] LABS: ANISOCYTOSIS 1+ (5-10/OIF) (0-5/OIF); BASOPHILS 1 %; BASOPHILS ABSOLUTE (CALC) 0.21 10/3/uL (0.0-0.16); ER DIFF TAT 0 Hrs 34 Mins; LYMPHOCYTES 4 %; LYMPHOCYTES ABSOLUTE (CALC) 0.85 10/3/uL (0.67-4.30); MONOCYTES 2 %; MONOCYTES ABSOLUTE (CALC) 0.43 10/3/uL (0.21-1.20); NEUTROPHILS ABSOLUTE (CALC) 19.81 10/3/uL (2.02-8.40); PLATELET ESTIMATE ADQ (ADEQUATE); SEGMENTED NEUTROPHIL (0) 93 %; TOTAL NUCLEATED CELLS 100
[2016-09-14 20:11] LABS: PHOSPHORUS, SERUM 3.9 MG/DL (2.5-4.5)
[2016-09-14 21:04] LABS: ALLENS TEST Pos; BE (BASE EXCESS) 6.3 MEQ/L (0 +/- 2.5); CARBOXYHEMOGLOBIN 0.3 % (0-3); DEVICE NRB; HCO3 (ACTUAL BICARBONATE) 29.6 MEQ/L (23-27); INSTRUMENT SERIAL # 35151; METHEMOGLOBIN 0.8 % (0-3); O2 CONTENT 15.2 VOL% (18-24); OPERATOR ID 33214; PCO2 (CO2 TENSION) 38 MMHG (35-45); PO2 (O2 TENSION) 116 MMHG (79-93); SAMPLE Arterial; pH 7.52 (7.37-7.43)
[2016-09-14 21:14] LABS: PROCALCITONIN 0.28 ng/mL (<0.5)
[2016-09-15 00:52] LABS: ASCORBIC ACID (UR NOT ORDER) 40 (NEG); BILIRUBIN, URINE NEGATIVE (NEG); KETONE, URINE TRACE MG/DL (NEG); LEUKOCYTE ESTERASE(NOT OR MOD (NEG); WBC (NOT ORDERED) (RFLEX) 44 (0-5)
[2016-09-15 05:30] LABS: MEAN CORPUS HGB CONC 30.3 g/dL (32.0-36.0); MEAN CORPUSCULAR HEMOGLOB 28.1 pg (26.0-34.0); MEAN CORPUSCULAR VOLUME 92.8 fL (80-100); MEAN PLATELET VOLUME 9.4 fL (9.2-13.0); RBC DISTRIBUTION WIDTH 18.9 % (12.0-16.0); WHITE BLOOD CELLS 20.8 10/3/uL (4.5-10.5)
[2016-09-15 05:42] LABS: ALBUMIN 2.4 G/DL (3.5-5.0); CHLORIDE, SERUM 107 MMOL/L (96-112); CREATININE 1.22 MG/DL (0.70-1.30); GFR AFRICAN AMERICAN 64 ML/MIN (>=60); GFR NON AFRICAN AMERICAN 55 ML/MIN (>=60); PHOSPHORUS, SERUM 3.3 MG/DL (2.5-4.5); SODIUM, SERUM 147 MMOL/L (135-148)
[2016-09-15 05:44] LABS: BUN (BLOOD UREA NITROGEN) 39 MG/DL (6-23); CALCIUM, SERUM 8.5 MG/DL (8.5-10.4); CO2 (CARBON DIOXIDE) 32 MMOL/L (24-34); GLUCOSE, SERUM 255 MG/DL (60-99)
[2016-09-15 05:48] LABS: HEMATOCRIT 29.7 % (40.0-51.0)
[2016-09-15 05:49] LABS: MANUAL DIFF YES %; PLATELET COUNT 237 10/3/uL (150-400)
[2016-09-15 07:23] LABS: ANISOCYTOSIS 1+ (5-10/OIF) (0-5/OIF); BAND NEUTROPHILS 5 %; LYMPHOCYTES 4 %; LYMPHOCYTES ABSOLUTE (CALC) 0.83 10/3/uL (0.67-4.30); MONOCYTES 2 %; MONOCYTES ABSOLUTE (CALC) 0.42 10/3/uL (0.21-1.20); NEUTROPHILS ABSOLUTE (CALC) 19.55 10/3/uL (2.02-8.40); PLATELET ESTIMATE ADQ (ADEQUATE); SEGMENTED NEUTROPHIL (0) 89 %; TOTAL NUCLEATED CELLS 100
[2016-09-16 06:17] LABS: HEMATOCRIT 27.6 % (40.0-51.0); HEMOGLOBIN 8.3 g/dL (13.6-17.8); MEAN CORPUS HGB CONC 30.1 g/dL (32.0-36.0); MEAN CORPUSCULAR HEMOGLOB 28.4 pg (26.0-34.0); MEAN CORPUSCULAR VOLUME 94.5 fL (80-100); MEAN PLATELET VOLUME 9.8 fL (9.2-13.0); PLATELET COUNT 192 10/3/uL (150-400); RBC DISTRIBUTION WIDTH 18.7 % (12.0-16.0); RED CELL COUNT 2.92 10/6/uL (4.7-6.1); WHITE BLOOD CELLS 16.6 10/3/uL (4.5-10.5)
[2016-09-16 06:18] LABS: MANUAL DIFF YES %
[2016-09-16 06:31] LABS: A/G RATIO 0.5 (0.7-1.9); ALBUMIN 2.2 G/DL (3.5-5.0); BUN (BLOOD UREA NITROGEN) 38 MG/DL (6-23); CALCIUM, SERUM 8.8 MG/DL (8.5-10.4); CHLORIDE, SERUM 109 MMOL/L (96-112); CO2 (CARBON DIOXIDE) 33 MMOL/L (24-34); CREATININE 0.97 MG/DL (0.70-1.30); GFR AFRICAN AMERICAN 84 ML/MIN (>=60); GFR NON AFRICAN AMERICAN 72 ML/MIN (>=60); GLOBULIN 4.2 G/DL (2.5-4.1); POTASSIUM, SERUM 3.6 MMOL/L (3.5-5.3); SGOT(AST) 23 U/L (5-40); SGPT(ALT) 16 U/L (5-65); SODIUM, SERUM 145 MMOL/L (135-148); TOTAL PROTEIN 6.4 G/DL (6.0-8.5)
[2016-09-16 06:32] LABS: ALKALINE PHOSPHATASE 37 U/L (45-117); GLUCOSE, SERUM 150 MG/DL (60-99); TOTAL BILIRUBIN 0.4 MG/DL (0-1.2)
[2016-09-16 06:41] LABS: ANISOCYTOSIS 1+ (5-10/OIF) (0-5/OIF); BAND NEUTROPHILS 1 %; LYMPHOCYTES 3 %; MONOCYTES 3 %; PLATELET ESTIMATE ADQ (ADEQUATE); SEGMENTED NEUTROPHIL (0) 93 %; TOTAL NUCLEATED CELLS 100
[2016-09-16 12:23] LABS: HEMATOCRIT 27.2 % (40.0-51.0); HEMOGLOBIN 8.2 g/dL (13.6-17.8)
[2016-09-16 19:11] LABS: HEMATOCRIT 28.5 % (40.0-51.0); HEMOGLOBIN 8.5 g/dL (13.6-17.8)
[2016-09-17 04:39] LABS: BASOPHILS 0.1 %; BASOPHILS ABSOLUTE 0.01 10/3/uL (0.0-0.16); EOSINOPHILS 0.3 %; EOSINOPHILS ABSOLUTE 0.04 10/3/uL (0.0-0.53); HEMATOCRIT 27.6 % (40.0-51.0); IMMATURE GRANULOCYTES 0.4 %; IMMATURE GRANULOCYTES ABSOLUTE 0.05 10/3/uL (0.0-0.11); LYMPHOCYTES 4.6 %; LYMPHOCYTES ABSOLUTE 0.58 10/3/uL (0.67-4.30); MEAN CORPUSCULAR VOLUME 96.5 fL (80-100); MEAN PLATELET VOLUME 9.8 fL (9.2-13.0); MONOCYTES 4.8 %; NEUTROPHILS 89.8 %; NEUTROPHILS ABSOLUTE 11.31 10/3/uL (2.02-8.40); PLATELET COUNT 172 10/3/uL (150-400); RBC DISTRIBUTION WIDTH 18.6 % (12.0-16.0); RED CELL COUNT 2.86 10/6/uL (4.7-6.1); WHITE BLOOD CELLS 12.6 10/3/uL (4.5-10.5)
[2016-09-17 04:54] LABS: MANUAL DIFF NO %
[2016-09-17 05:07] LABS: ALBUMIN 2.1 G/DL (3.5-5.0); BUN (BLOOD UREA NITROGEN) 33 MG/DL (6-23); CALCIUM, SERUM 8.9 MG/DL (8.5-10.4); CHLORIDE, SERUM 110 MMOL/L (96-112); CO2 (CARBON DIOXIDE) 33 MMOL/L (24-34); GFR AFRICAN AMERICAN 92 ML/MIN (>=60); GFR NON AFRICAN AMERICAN 79 ML/MIN (>=60); GLUCOSE, SERUM 124 MG/DL (60-99); PHOSPHORUS, SERUM 1.9 MG/DL (2.5-4.5); POTASSIUM, SERUM 3.4 MMOL/L (3.5-5.3); SODIUM, SERUM 147 MMOL/L (135-148)
[2016-09-18 06:04] LABS: BASOPHILS 0.1 %; BASOPHILS ABSOLUTE 0.01 10/3/uL (0.0-0.16); EOSINOPHILS 0.9 %; HEMATOCRIT 25.1 % (40.0-51.0); HEMOGLOBIN 7.6 g/dL (13.6-17.8); IMMATURE GRANULOCYTES 0.4 %; IMMATURE GRANULOCYTES ABSOLUTE 0.04 10/3/uL (0.0-0.11); LYMPHOCYTES 4.6 %; LYMPHOCYTES ABSOLUTE 0.49 10/3/uL (0.67-4.30); MEAN CORPUS HGB CONC 30.3 g/dL (32.0-36.0); MEAN CORPUSCULAR HEMOGLOB 28.7 pg (26.0-34.0); MEAN CORPUSCULAR VOLUME 94.7 fL (80-100); MEAN PLATELET VOLUME 10.1 fL (9.2-13.0); MONOCYTES ABSOLUTE 0.54 10/3/uL (0.21-1.20); NEUTROPHILS ABSOLUTE 9.54 10/3/uL (2.02-8.40); PLATELET COUNT 145 10/3/uL (150-400); RBC DISTRIBUTION WIDTH 18.1 % (12.0-16.0); RED CELL COUNT 2.65 10/6/uL (4.7-6.1); WHITE BLOOD CELLS 10.7 10/3/uL (4.5-10.5)
[2016-09-18 06:06] LABS: MANUAL DIFF NO %
[2016-09-18 06:23] LABS: ALBUMIN 1.9 G/DL (3.5-5.0); CALCIUM, SERUM 8.8 MG/DL (8.5-10.4); CHLORIDE, SERUM 112 MMOL/L (96-112); CO2 (CARBON DIOXIDE) 29 MMOL/L (24-34); CREATININE 0.76 MG/DL (0.70-1.30); GFR AFRICAN AMERICAN 98 ML/MIN (>=60); GFR NON AFRICAN AMERICAN 85 ML/MIN (>=60); GLUCOSE, SERUM 139 MG/DL (60-99); PHOSPHORUS, SERUM 1.6 MG/DL (2.5-4.5); POTASSIUM, SERUM 3.7 MMOL/L (3.5-5.3); SODIUM, SERUM 146 MMOL/L (135-148)
[2016-09-18 06:24] LABS: BUN (BLOOD UREA NITROGEN) 27 MG/DL (6-23)
[2016-09-19 01:12] LABS: HEMATOCRIT 25.3 % (40.0-51.0); HEMOGLOBIN 7.5 g/dL (13.6-17.8)
[2016-09-19 06:43] LABS: BASOPHILS 0.1 %; BASOPHILS ABSOLUTE 0.01 10/3/uL (0.0-0.16); EOSINOPHILS 1.7 %; EOSINOPHILS ABSOLUTE 0.16 10/3/uL (0.0-0.53); HEMATOCRIT 23.7 % (40.0-51.0); HEMOGLOBIN 7.3 g/dL (13.6-17.8); IMMATURE GRANULOCYTES 0.4 %; IMMATURE GRANULOCYTES ABSOLUTE 0.04 10/3/uL (0.0-0.11); LYMPHOCYTES 7.2 %; LYMPHOCYTES ABSOLUTE 0.68 10/3/uL (0.67-4.30); MANUAL DIFF NO %; MEAN CORPUS HGB CONC 30.8 g/dL (32.0-36.0); MEAN PLATELET VOLUME 10.6 fL (9.2-13.0); MONOCYTES 7.2 %; MONOCYTES ABSOLUTE 0.68 10/3/uL (0.21-1.20); NEUTROPHILS 83.4 %; NEUTROPHILS ABSOLUTE 7.84 10/3/uL (2.02-8.40); PLATELET COUNT 139 10/3/uL (150-400); RED CELL COUNT 2.52 10/6/uL (4.7-6.1); WHITE BLOOD CELLS 9.4 10/3/uL (4.5-10.5)
[2016-09-19 06:58] LABS: A/G RATIO 0.5 (0.7-1.9); ALBUMIN 1.8 G/DL (3.5-5.0); ALKALINE PHOSPHATASE 39 U/L (45-117); CALCIUM, SERUM 9.1 MG/DL (8.5-10.4); CHLORIDE, SERUM 112 MMOL/L (96-112); CO2 (CARBON DIOXIDE) 28 MMOL/L (24-34); CREATININE 0.67 MG/DL (0.70-1.30); GFR AFRICAN AMERICAN 104 ML/MIN (>=60); GFR NON AFRICAN AMERICAN 89 ML/MIN (>=60); GLOBULIN 3.8 G/DL (2.5-4.1); GLUCOSE, SERUM 133 MG/DL (60-99); POTASSIUM, SERUM 3.5 MMOL/L (3.5-5.3); SGOT(AST) 16 U/L (5-40); SGPT(ALT) 23 U/L (5-65); SODIUM, SERUM 146 MMOL/L (135-148); TOTAL BILIRUBIN 0.4 MG/DL (0-1.2); TOTAL PROTEIN 5.6 G/DL (6.0-8.5)
[2016-09-19 06:59] LABS: BUN (BLOOD UREA NITROGEN) 21 MG/DL (6-23)
[2016-09-19 13:00] LABS: HEMOGLOBIN 7.5 g/dL (13.6-17.8)
[2016-09-19 17:45] LABS: HEMATOCRIT 24.7 % (40.0-51.0); HEMOGLOBIN 7.5 g/dL (13.6-17.8)
[2016-09-20 01:18] LABS: HEMATOCRIT 25.4 % (40.0-51.0); HEMOGLOBIN 7.7 g/dL (13.6-17.8)
[2016-09-20 07:18] LABS: HEMATOCRIT 24.4 % (40.0-51.0); HEMOGLOBIN 7.4 g/dL (13.6-17.8)
[2016-09-20 12:07] LABS: HEMOGLOBIN 7.1 g/dL (13.6-17.8)
[2016-09-20 16:17] LABS: HEMATOCRIT 22.5 % (40.0-51.0); MEAN CORPUS HGB CONC 30.7 g/dL (32.0-36.0); MEAN CORPUSCULAR HEMOGLOB 28.5 pg (26.0-34.0); MEAN PLATELET VOLUME 10.3 fL (9.2-13.0); PLATELET COUNT 152 10/3/uL (150-400); RBC DISTRIBUTION WIDTH 18.2 % (12.0-16.0); RED CELL COUNT 2.42 10/6/uL (4.7-6.1)
[2016-09-20 16:19] LABS: HEMOGLOBIN 6.9 g/dL (13.6-17.8)
[2016-09-20 16:20] LABS: MANUAL DIFF YES %
[2016-09-20 16:54] LABS: ANISOCYTOSIS 1+ (5-10/OIF) (0-5/OIF); BAND NEUTROPHILS 1 %; EOSINOPHILS 3 %; LYMPHOCYTES 6 %; MONOCYTES 1 %; PLATELET ESTIMATE ADQ (ADEQUATE); SEGMENTED NEUTROPHIL (0) 89 %; TOTAL NUCLEATED CELLS 100
[2016-09-20 17:58] LABS: FOLATE 26.7 NG/ML (>5.2)
[2016-09-21 07:42] LABS: BUN (BLOOD UREA NITROGEN) 20 MG/DL (6-23); CHLORIDE, SERUM 110 MMOL/L (96-112); CO2 (CARBON DIOXIDE) 30 MMOL/L (24-34); CREATININE 0.73 MG/DL (0.70-1.30); GFR AFRICAN AMERICAN 100 ML/MIN (>=60); GFR NON AFRICAN AMERICAN 86 ML/MIN (>=60); POTASSIUM, SERUM 4.2 MMOL/L (3.5-5.3); SODIUM, SERUM 144 MMOL/L (135-148)
[2016-09-21 07:43] LABS: CALCIUM, SERUM 8.1 MG/DL (8.5-10.4); GLUCOSE, SERUM 172 MG/DL (60-99)
[2016-09-21 07:51] LABS: HEMOGLOBIN 8.1 g/dL (13.6-17.8); MEAN CORPUS HGB CONC 31.3 g/dL (32.0-36.0); MEAN CORPUSCULAR HEMOGLOB 28.3 pg (26.0-34.0); MEAN CORPUSCULAR VOLUME 90.6 fL (80-100); MEAN PLATELET VOLUME 10.5 fL (9.2-13.0); PLATELET COUNT 182 10/3/uL (150-400); RED CELL COUNT 2.86 10/6/uL (4.7-6.1); WHITE BLOOD CELLS 9.6 10/3/uL (4.5-10.5)
[2016-09-21 07:53] LABS: HEMATOCRIT 25.9 % (40.0-51.0); MANUAL DIFF YES %
[2016-09-21 08:19] LABS: ANISOCYTOSIS 1+ (5-10/OIF) (0-5/OIF); LYMPHOCYTES 8 %; LYMPHOCYTES ABSOLUTE (CALC) 0.77 10/3/uL (0.67-4.30); MONOCYTES 8 %; MONOCYTES ABSOLUTE (CALC) 0.77 10/3/uL (0.21-1.20); NEUTROPHILS ABSOLUTE (CALC) 8.06 10/3/uL (2.02-8.40); PLATELET ESTIMATE ADQ (ADEQUATE); SEGMENTED NEUTROPHIL (0) 84 %; TOTAL NUCLEATED CELLS 100
[2016-11-13] MEDS ORDERED: SIN25 PO (20:08)
[2016-11-13] MEDS ORDERED: LIPITOR20 PO (20:08)
[2016-11-13] MEDS ORDERED: BROVANA15 MCG INH (20:08)
[2016-11-13] MEDS ORDERED: ARICEPT10 PO (20:09)
[2016-11-13] MEDS ORDERED: ARICEPT5 PO (20:10)
[2016-11-13] MEDS ORDERED: EXELON9.5T TOP (20:10)
[2016-11-13] MEDS ORDERED: FLORASTOR250 MG PO (20:11)
[2016-11-13] MEDS ORDERED: DUONEB INH (20:13)
[2016-11-13] MEDS ORDERED: LEVOTHYROXIN75 MCG PO (20:13)
[2016-11-13] MEDS ORDERED: NAMENDA5 PEG (20:14)
[2016-11-13] MEDS ORDERED: ZYPREXA10 MG PO (20:15)
[2016-11-13] MEDS ORDERED: LOP25 PEG (20:15)
[2016-11-13] MEDS ORDERED: PACERONE100 MG PO (20:17)
[2016-11-13] MEDS ORDERED: FLOMAX4 PO (20:18)
[2016-11-13] MEDS ORDERED: EFFEX75 PO (20:18)
[2016-11-13] MEDS ORDERED: RESTASIS OPH (20:18)
[2016-11-13] MEDS ORDERED: K-TABS10 MEQ PO (20:18)
[2016-11-13] MEDS ORDERED: XARELTO20 MG PO (20:19)
[2016-12-31] MEDS ORDERED: PACERONE100 MG PEG (08:57)
[2016-12-31] MEDS ORDERED: FLOMAX4 PEG (08:57)
[2016-12-31] MEDS ORDERED: LOP25 PEG (08:57)
[2016-12-31] MEDS ORDERED: NAMENDA5 PEG (08:58)
[2016-12-31] MEDS ORDERED: LIPITOR20 PEG (08:58)
[2016-12-31] MEDS ORDERED: ARICEPT10 PEG (08:58)
[2016-12-31] MEDS ORDERED: XARELTO20 MG PEG (08:59)
[2016-12-31] MEDS ORDERED: SYN075 PEG (08:59)
[2016-12-31] MEDS ORDERED: ZYPREXA10 MG PEG (08:59)
[2016-12-31] MEDS ORDERED: RESTASIS OPH (09:00)
[2016-12-31] MEDS ORDERED: EFFEXOR XR150 MG PEG (09:00)
[2016-12-31] MEDS ORDERED: SIN25 PEG (09:00)
[2016-12-31] MEDS ORDERED: FLORASTOR250 MG PEG (09:01)
[2016-12-31] MEDS ORDERED: KCL20UDL PEG (09:01)
[2016-12-31] MEDS ORDERED: EXELON9.5T TOP (09:01)
[2016-12-31] MEDS ORDERED: ARICEPT5 PEG (09:01)
[2016-12-31] MEDS ORDERED: HUMALOGPEN SC (09:02)
[2016-12-31] MEDS ORDERED: XANAX1 MG PEG (09:02)
[2016-12-31] MEDS ORDERED: X5 PEG (09:02)
[2016-12-31] MEDS ORDERED: BROVANA15 MCG INH (09:02)
[2016-12-31] MEDS ORDERED: CLEOCIN300 MG PO (09:03)
[2016-12-31] MEDS ORDERED: OCEAN NAS (09:03)
[2016-12-31] MEDS ORDERED: DUONEB INH (09:03)
== END 2016-09-21 17:54 | DRG 871 ==
LOC: ER 15:48 → 5SO 17:14 → 7NO 17:51
PROVIDERS: Emergency Medicine; Hospitalist; Nurse Practitioner Family
PROC: 30233N1 Transfusion of Nonautologous Red Blood Cells into Peripheral Vein, Percutaneous Approach (ICD-10-PCS; principal; 2016-09-20)
DX: A41.9 Sepsis, unspecified organism (principal); J69.0 Pneumonitis due to inhalation of food and vomit; J96.20 Acute and chronic respiratory failure, unspecified whether with hypoxia or hypercapnia; I24.8 Other forms of acute ischemic heart disease; E11.22 Type 2 diabetes mellitus with diabetic chronic kidney disease; D69.6 Thrombocytopenia, unspecified; D62 Acute posthemorrhagic anemia; N18.3 Chronic kidney disease, stage 3 (moderate); G20 Parkinson's disease; I48.2 Chronic atrial fibrillation; R13.12 Dysphagia, oropharyngeal phase; R04.0 Epistaxis; R65.20 Severe sepsis without septic shock; D50.9 Iron deficiency anemia, unspecified; I25.10 Atherosclerotic heart disease of native coronary artery without angina pectoris; F02.80 Dementia in other diseases classified elsewhere, unspecified severity, without behavioral disturbance, psychotic disturbance, mood disturbance, and anxiety; I35.0 Nonrheumatic aortic (valve) stenosis; N40.0 Benign prostatic hyperplasia without lower urinary tract symptoms; Z95.1 Presence of aortocoronary bypass graft; Z79.01 Long term (current) use of anticoagulants; Z86.73 Personal history of transient ischemic attack (TIA), and cerebral infarction without residual deficits; Z86.718 Personal history of other venous thrombosis and embolism; Z95.4 Presence of other heart-valve replacement; Z88.0 Allergy status to penicillin; Z91.013 Allergy to seafood; Z88.8 Allergy status to other drugs, medicaments and biological substances; Z66 Do not resuscitate; Z99.81 Dependence on supplemental oxygen; Z93.1 Gastrostomy status
CPT/HCPCS: 36415; 71010; 74000; 80048; 80053; 80069; 80202; 81001; 82140; 82272; 82728; 82746; 82805; 82962; 83540; 83550; 83605; 83735; 83880; 84100; 84145; 84439; 84484; 85014; 85018; 85025; 85610; 85730; 86850; 86900; 86901; 86920; 87040; 87077; 87086; 87150; 87186; 87449; 93005; 94640; 96365; 96375; 97161-GP; 97530-GP; 99285; A9270-GY; C8924; G8978-CN-GP; G8979-CM-GP; J0692; J1956; J3370; P9016; Q9957